=== PATIENT | male | born 2000 | race Caucasian/White ===

== ENCOUNTER 2024-06-05 07:57 | Emergency (ER) | payer OTHER, SELFPAY ==
--- NOTE | ~2024-06-05 | CT_ITS ---
EXAMINATION: CT ABDOMEN PELVIS WITH IV CONTRAST HISTORY: abd pain, concern for appy COMPARISON: There are no prior studies for comparison. TECHNIQUE: CT scan of the abdomen and pelvis was performed following administration of 85 mL Omnipaque 350 using standard departmental protocol. Coronal and sagittal reformatted images were generated and reviewed. Oral contrast material was not administered at the request of the referring physician. This CT exam was performed with one or more of the following dose reduction techniques: automated exposure control, adjustment of the mA and/or kV according to patient size, use of iterative reconstruction technique. DLP: 371 mGy-cm FINDINGS: LOWER CHEST: The visualized lung bases are clear. There is no pleural effusion. CARDIOVASCULATURE: The heart is normal in size. There is no pericardial effusion. LIVER: The liver is normal in size and contour. No liver mass is identified. The hepatic and portal veins are patent. GALLBLADDER / BILE DUCTS: The gallbladder is unremarkable. There is no intra or extrahepatic biliary ductal dilatation. SPLEEN: The spleen is normal in size. No focal splenic lesion is identified. PANCREAS: The pancreas is unremarkable in appearance. ADRENAL GLANDS: Within normal limits. KIDNEYS/RETROPERITONEUM: No renal calculi are identified. There is no hydronephrosis. No renal masses are identified. LYMPH NODES: No abdominal or pelvic lymphadenopathy. VASCULATURE: The abdominal aorta is normal in caliber. MESENTERY/PERITONEUM: No free fluid. No masses. There is no free intraperitoneal gas. STOMACH: The stomach is collapsed, limiting evaluation. SMALL BOWEL: The small bowel is normal in caliber. COLON: The colon is unremarkable. APPENDIX: Normal. URINARY BLADDER/PELVIC ORGANS: The urinary bladder is collapsed, limiting evaluation. The prostate is normal in size. BONES / SOFT TISSUES: No suspicious bony or soft tissue abnormalities. CT/CT abdomen pelvis w IV con IMPRESSION: Unremarkable contrast-enhanced CT of the abdomen and pelvis. Electronically signed by: Harley Garcia MD 06/05/2024 09:51 AM EDT
[2024-06-05 08:01] VITALS: BP 136/69; PULSE 91; RESP 22; TEMP 37.2; O2SAT 100; BMI 20.9
[2024-06-05 08:21] LABS: MANUAL DIFF FLAG NO
[2024-06-05 08:22] LABS: Basophils Percent Auto 0.2 % (0-2); Eosinophils Percent Auto 0.5 % (0-4); Hematocrit 46.2 % (42.0-52.0); Hemoglobin 16.4 g/dl (14.0-18.0); Imm Gran Abs Auto 0.05 X10*3/uL (0.00-0.03); Imm Gran Pct Auto 0.6 % (0.0-0.4); Lymphocytes Absolute Auto 2.3 X10*3/uL (1.2-4.9); Lymphocytes Percent Auto 27.3 % (20-40); Mean Corpuscular HGB Conc 35.5 g/dl (31.0-36.0); Mean Corpuscular Hemoglobin 30.2 pg (27.0-33.0); Mean Corpuscular Volume 85.1 fL (80.0-98.0); Mean Platelet Volume 7.9 fL (9.4-12.4); Monocytes Absolute Auto 0.5 X10*3/uL (0.1-1.2); Monocytes Percent Auto 6.1 % (2-11); Neutrophils Absolute Auto 5.6 x10*3/uL (2.0-8.3); Neutrophils Percent Auto 65.3 % (45-73); Platelet Count 374 X10*3/uL (160-400); Red Blood Count 5.43 X10*6/uL (4.60-5.80); White Blood Count 8.5 X10*3/uL (4.8-10.8)
[2024-06-05 08:37] LABS: Alanine Aminotransferase 17 U/L (0-40); Albumin Level 4.6 g/dL (3.5-5.0); Alkaline Phosphatase 67 U/L (39-117); Anion Gap 14 (12-20); Aspartate Amino Transferase 21 U/L (5-37); Bilirubin Direct 0.1 mg/dL (0.0-0.5); Bilirubin Total 0.4 mg/dL (0.0-1.0); Blood Urea Nitrogen 16 mg/dL (9-16); C Reactive Protein < 0.10 mg/dL (< or = 0.50); Calcium 9.7 mg/dL (8.4-10.2); Carbon Dioxide 23 mmol/L (22-29); Chloride 107 mmol/L (96-108); Creatinine Clr Calc Pharmacy 139.8; Estimated Glomerular Filt Rate > 60; Glucose Random 102 mg/dL (60-115); Lipase 24 U/L (8-78); Potassium 3.9 mmol/L (3.3-5.1); Sodium 140 mmol/L (135-145); Total Protein 7.4 g/dL (6.5-8.0)
--- NOTE | 2024-06-05 09:19 | ED_ITS ---
HPI - General Adult General Chief complaint: Abdominal Pain Stated complaint: abd pain Time Seen by Provider: 06/05/24 09:19 Source: patient Mode of arrival: ambulatory Limitations: no limitations History of Present Illness ED Provider: Ariane Smith PA-C HPI narrative: Patient is a 23 year old assigned male at with a history of Crohn's disease presenting to the emergency department today with abdominal pain and nausea. Patient states that he woke up this morning with abdominal pain and nausea which he was concerned is a Crohn's flare vs. appendicitis. Patient denies any dizziness, lightheadedness, vomiting, fever, chills, blurry vision, double vision, loss of vision, chest pain, difficulty breathing, shortness of breath, back pain, night sweats, pain with urination, increased urinary frequency, increased urinary urgency, blood in his urine or stool, syncope or a near syncopal episode, recent trauma or falls, bowel incontinence, bladder incontinence, or any other complaints at this time. Relieving factors: none Exacerbating factors: none Associated symptoms: nausea/vomiting Treatments prior to arrival: none Related Data Allergies Allergy/AdvReac Type Severity Reaction Status Date / Time cephalexin [From Keflex] Allergy Angioedema Verified 06/05/24 08:07 kiwi AdvReac Itching Verified 06/05/24 08:07 Review of Systems 2 Constitutional: Constitutional: Reports no additional constitutional complaints, Denies chills, Denies fever(s) and Denies night sweats Eyes: Eyes: Reports no additional eye complaints, Denies blurry vision, Denies change in vision, Denies diplopia, Denies eye discharge, Denies loss of vision and Denies eye pain ENT: Denies dizziness Cardiovascular: Cardiovascular: Reports no additional cardiovascular complaints, Denies chest pain, Denies lightheadedness, Denies Loss of Consciousness and Denies dyspnea Respiratory: Respiratory: Reports no additional respiratory complaints and Denies dyspnea Gastrointestinal: Gastrointestinal: Reports no additional gastrointestinal complaints, Reports abdominal pain, Denies melena, Denies hematochezia, Denies change in bowel habits, Denies change in stool character, Reports nausea and Denies vomiting Genitourinary: Genitourinary: Reports no additional male genitourinary complaints, Denies hematuria, Denies oliguria, Denies difficulty urinating, Denies dysuria, Denies urinary frequency, Denies urinary hesitancy, Denies urinary incontinence and Denies urinary urgency Musculoskeletal: Musculoskeletal: Reports no additional musculoskeletal complaints, Denies numbness and Denies tingling Neurologic: Denies dizziness, Denies loss of vision, Denies numbness and Denies tingling Psychiatric: Psychiatric: Reports no additional psychiatric complaints Endocrine: Endocrine: Reports no additional endocrine complaints Hematologic/Lymphatic: Hematologic/Lymphatic: Reports no additional hematologic/lymphatic complaints Allergic/Immunologic: Allergic/Immunologic: Reports no additional allergic/immunologic complaints PMFSH Past Medical History Attestation statement: The following information was validated with the patient. Source: old records reviewed and nursing notes reviewed Social History Social History Smoked in Last 30 Days: No Use of substances other than those prescribed or required for medical reasons: Yes Substance Use Type: Marijuana Advance Directives: No Advance Directives Information Provided: Yes Physical Exam ED Vital Signs: Vital Signs - 24 hr 06/05/24 08:01 06/05/24 09:47 06/05/24 10:39 Temperature 98.9 F 97.5 F 97.5 F Pulse Rate 91 78 78 Respiratory Rate 22 H 16 16 Blood Pressure 136/69 125/78 125/78 Pulse Oximetry 100 100 100 Oxygen Delivery Method Room Air Room Air Room Air BMI result Body Mass Index 20.9 Const General: cooperative, no acute distress, alert and awake Nutritional Appearance: well nourished Orientation/consciousness: patient oriented x3 Limitations: no limitations [facility] Head: Yes normal to inspection and Yes atraumatic Ears: hearing grossly normal bilaterally and external ears normal General nose exam: Normal external nose present, no nasal discharge noted and no epistaxis Face and sinus: Yes normal facial exam, No abrasion and No laceration Mouth: Normal oral and palatal mucosa present, no drooling and no muffled voice Eyes General: appearance normal, both eyes and all related structures Periorbital: periorbital findings normal Eyelids: Yes eyelids normal Conjunctivae: conjunctivae normal Pupils: Equal, round and reactive pupils present EOM: EOMs intact bilaterally Neck Neck: Yes normal visual inspection, Yes full ROM and Yes no lymphadenopathy Chest Chest palpation & inspection: normal inspection of the chest Resp Effort & Inspection: normal respiratory effort and able to speak in complete sentences GI Inspection: Yes normal to inspection Palpation (GI): Soft to palpation, not firm, Tenderness to palpation present (GI), no guarding and not rigid Neuro General: patient oriented x3, moves all extremities and CN's II-XI intact bilaterally Cranial nerves: Yes Equal, round and reactive pupils present Cognition (Neuro): normal cognition Extrem General: Yes normal to inspection, Yes full ROM and Yes capillary refill normal Psych Appearance: grossly normal Mental Status: mental status grossly normal Affect: normal affect Attitude: cooperative Thought process: Normal thought process present Thought content: Normal thought content present Insight: Good insight present (Psych) Medications Administered Discontinued Medications Generic Name Dose Route Start Last Admin Trade Name Billy PRN Reason Stop Dose Admin Iohexol 100 ml 06/05/24 09:24 06/05/24 09:25 Iohexol 350 Mg/Ml 100 Ml Infus..Btl IV 06/05/24 09:25 85 ml ONCE ONE Administration Morphine Sulfate 4 mg 06/05/24 09:19 06/05/24 09:46 Morphine Sulfate 4 Mg/Ml Cartridge IVPUSH 06/05/24 09:20 4 mg ONCE ONE Administration Protocol Ondansetron HCl 4 mg 06/05/24 09:19 06/05/24 09:46 Ondansetron Hcl 4 Mg/2 Ml Vial IVPUSH 06/05/24 09:20 4 mg ONCE ONE Administration Medical Decision Making Medical Decision Making [facility] Narrative: Patient is a 23 year old assigned male at with a history of Crohn's disease presenting to the emergency department today with abdominal pain and nausea. Patient's physical exam was as noted in the physical exam portion of this note. Patient's blood work was unremarkable. Patient's CT abd/pelvis showed no acute process. I explained my physical exam findings as well as all test results to the patient. I answered all questions asked by the patient. Patient received IV Morphine which, upon re-evaluation, he stated it helped his symptoms significantly. I stressed the importance of the patient taking his medication as directed (either prescribed or as the over the counter packaging recommends). I stressed the importance of the patient following up with his primary care provider. I stressed the importance of the patient returning to the emergency department immediately if his symptoms were to worsen or if he were to develop any dizziness, shortness of breath, difficulty breathing, chest pain, blurry vision, loss of vision, nausea, vomiting, abdominal pain, fever, chills, back pain, or any other complaints. Patient verbalized agreement and understanding with this treatment plan and discharge. Differential Diagnosis Differential Diagnoses: The differential diagnosis associated with the presentation includes Abdominal pain Appendicitis Crohn's flare Admission/Observation Consideration of admission/observation: Escalation of care including admission/observation considered Patient would have been admitted to the hospital had his work up had any findings where hospital admission was appropriate and his clinical presentation warranted hospital admission. Lab Data [facility] Lab Attestation statement: I reviewed the patient's lab results. My interpretation of these results are in the [facility] Rationale portion of this note. 06/05/24 08:16 06/05/24 08:16 Labs: Lab Results 06/05/24 Range/Units 08:16 WBC 8.5 (4.8-10.8) X10*3/uL RBC 5.43 (4.60-5.80) X10*6/uL Hgb 16.4 (14.0-18.0) g/dl Hct 46.2 (42.0-52.0) % MCV 85.1 (80.0-98.0) fL MCH 30.2 (27.0-33.0) pg MCHC 35.5 (31.0-36.0) g/dl RDW 13.0 (11.0-16.0) % Plt Count 374 (160-400) X10*3/uL MPV 7.9 L (9.4-12.4) fL Immature Gran % (Auto) 0.6 H (0.0-0.4) % Neut % (Auto) 65.3 (45-73) % Lymph % (Auto) 27.3 (20-40) % Benton % (Auto) 6.1 (2-11) % Eos % (Auto) 0.5 (0-4) % Baso % (Auto) 0.2 (0-2) % Lymph # (Auto) 2.3 (1.2-4.9) X10*3/uL Benton # (Auto) 0.5 (0.1-1.2) X10*3/uL Eos # (Auto) 0.0 (0.0-0.4) X10*3/uL Baso # (Auto) 0.0 (0.0-0.2) X10*3/uL Abs Immat Gran (auto) 0.05 H (0.00-0.03) X10*3/uL Absolute Neuts (auto) 5.6 (2.0-8.3) x10*3/uL Absolute Nucleated RBC 0.000 (0.0-0.012) X10*3/uL Nucleated RBC % (auto) 0.0 (0.0-0.2) /100WBC Sodium 140 (135-145) mmol/L Potassium 3.9 (3.3-5.1) mmol/L Chloride 107 (96-108) mmol/L Carbon Dioxide 23 (22-29) mmol/L Anion Gap 14 (12-20) BUN 16 (9-16) mg/dL Creatinine 0.76 (0.5-1.4) mg/dL Estim Creat Clear Calc 139.8 Estimated GFR > 60 Random Glucose 102 (60-115) mg/dL Calcium 9.7 (8.4-10.2) mg/dL Magnesium 2.0 (1.6-2.6) mg/dL Total Bilirubin 0.4 (0.0-1.0) mg/dL Direct Bilirubin 0.1 (0.0-0.5) mg/dL AST 21 (5-37) U/L ALT 17 (0-40) U/L Alkaline Phosphatase 67 (39-117) U/L C-Reactive Protein < 0.10 (< or = 0.50) mg/dL Total Protein 7.4 (6.5-8.0) g/dL Albumin 4.6 (3.5-5.0) g/dL Lipase 24 (8-78) U/L Independent Interpretation I performed an independent interpretation of an: CT Scan Interpretation: My interpretation is in agreement with the radiologist's impression of this imaging study. L Report Number: [id number]: Total DLP = 371.00 mGy-cm EXAMINATION: CT ABDOMEN PELVIS WITH IV CONTRAST HISTORY: abd pain, concern for appy COMPARISON: There are no prior studies for comparison. TECHNIQUE: CT scan of the abdomen and pelvis was performed following administration of 85 mL Omnipaque 350 using standard departmental protocol. Coronal and sagittal reformatted images were generated and reviewed. Oral contrast material was not administered at the request of the referring physician. This CT exam was performed with one or more of the following dose reduction techniques: automated exposure control, adjustment of the mA and/or kV according to patient size, use of iterative reconstruction technique. DLP: 371 mGy-cm FINDINGS: LOWER CHEST: The visualized lung bases are clear. There is no pleural effusion. CARDIOVASCULATURE: The heart is normal in size. There is no pericardial effusion. LIVER: The liver is normal in size and contour. No liver mass is identified. The hepatic and portal veins are patent. GALLBLADDER / BILE DUCTS: The gallbladder is unremarkable. There is no intra or extrahepatic biliary ductal dilatation. SPLEEN: The spleen is normal in size. No focal splenic lesion is identified. PANCREAS: The pancreas is unremarkable in appearance. ADRENAL GLANDS: Within normal limits. KIDNEYS/RETROPERITONEUM: No renal calculi are identified. There is no hydronephrosis. No renal masses are identified. LYMPH NODES: No abdominal or pelvic lymphadenopathy. VASCULATURE: The abdominal aorta is normal in caliber. MESENTERY/PERITONEUM: No free fluid. No masses. There is no free intraperitoneal gas. STOMACH: The stomach is collapsed, limiting evaluation. SMALL BOWEL: The small bowel is normal in caliber. COLON: The colon is unremarkable. APPENDIX: Normal. URINARY BLADDER/PELVIC ORGANS: The urinary bladder is collapsed, limiting evaluation. The prostate is normal in size. BONES / SOFT TISSUES: No suspicious bony or soft tissue abnormalities. CT/CT abdomen pelvis w IV con IMPRESSION: Unremarkable contrast-enhanced CT of the abdomen and pelvis. Electronically signed by: Harley Garcia MD 06/05/2024 09:51 AM EDT Dictated By: Harley Garcia MD Signed By: Electronically signed by Harley Garcia MD 06/05/24 0951 Radiology Impression Discussion of test interpretation with radiology: I have reviewed the radiologist's reading. Critical Care Time Critical Care Time Critical Care Time: Yes Total Critical Care Time: 36 Attestation: I spent 36 minutes of Critical Care Time with this patient. This does not include time spent on separately reported billable procedures. Discharge Plan Discharge Clinical Impression: Abdominal pain Patient Disposition: Home, Self-Care Instructions: Abdominal Pain (ED) Additional Instructions: Follow up with your primary care provider and GI specialist. Return to the emergency department immediately if your symptoms worsen or if you develop any numbness, tingling, dizziness, shortness of breath, difficulty breathing, chest pain, blurry vision, loss of vision, nausea, vomiting, abdominal pain, fever, chills, back pain, or any other complaints. Please see the information below about our Patient Portal. If you are not yet enrolled in the [facility] Patient Portal, you will receive an enrollment email invitation following your visit to any [facility] setting. You may also self-enroll in the Patient Portal by visiting our website: [email or web address] The following information is required to access the Patient Portal: - Your [facility] Medical Record Number - Your personal home email address (must match what is in your electronic medical record, Registration staff can assist with this) - Name - Date of Capabilities of the Patient Portal: - Message some providers - View upcoming appointments - Access your health summary, medical history, and visit history - View current conditions and allergies - View procedure and lab results - View your medications, including guidelines, side effects, and precautions - Complete pre-appointment questionnaires requested by your provider - Ready summary reports of your office visits and procedures To access the Patient Portal Mobile [employer], follow these directions: - Search [employer] in the [employer] Store or [employer] Store - Download the Elma - Search for [facility] - Enter your login/password Referrals: [facility] Family Medicine [Provider Group] (Call to establish and follow up with a primary care provider. If you already have a primary care provider, please follow up with them.) [facility] Primary Care, [place] [Provider Group] (Call to establish and follow up with a primary care provider. If you already have a primary care provider, please follow up with them.) [facility], [place] [Provider Group] (Call to establish and follow up with a primary care provider. If you already have a primary care provider, please follow up with them.) [facility] Primary Care, [facility] [Provider Group] (Call to establish and follow up with a primary care provider. If you already have a primary care provider, please follow up with them.) [facility] [Provider Group] (Call to establish and follow up with a primary care provider. If you already have a primary care provider, please follow up with them.) Stand Alone Forms: Work/School Release Interventions: ED Discharge Assessment Last Done: 06/05/24 10:39 Discharge Date/Time: 06/05/24 10:41 Print Language: Swiss
[2024-06-05] MEDS: iohexoL 350 MG/ML 100 ML INFUS..BTL IV (09:25)
[2024-06-05] MEDS: Morphine Sulfate 4 MG/ML CARTRIDGE IVPUSH (09:46)
[2024-06-05] MEDS: ondansetron HCL 4 MG/2 ML VIAL IVPUSH (09:46)
[2024-06-05 09:47] VITALS: BP 125/78; PULSE 78; RESP 16; TEMP 36.4; O2SAT 100
--- NOTE | 2024-06-05 09:52 | PC.NURSE ---
abd soft and slightly tender. has hgad a BM in Ed w/o blood. no distention. s tates pain has begun to improve w/o meds.
--- OUTSIDE RECORDS SUMMARY | 2024-06-05 10:27 | XMS_ITS | Referral Summary ---
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 Kiwi Itching 07/27/2022 Itchy back of throat Medications Ventolin HFA 90 mcg/actuation inhaler Currently using 2 puffs twice daily 3 Active cromolyn (NASALCHROM) 5.2 mg/spray (4 %) nasal spray 3 Active Loratadine-D 10-240 mg per 24 hr tablet 3 Active montelukast (SINGULAIR) 10 mg tablet 3 Active predniSONE (DELTASONE) 50 mg tablet 50 mg daily. X 7 days 3 Active Social History Tobacco Use Types Packs/Day Years Used Date Smoking Tobacco: Former Cigarettes Smokeless Tobacco: Never Tobacco Cessation:Counseling Given: Not Answered Comments:Smoked from 5th grad through high school Alcohol Use Standard Drinks/Week Comments Yes 0 (1 standard drink = 0.6 oz pur e alcohol) 1-2 every few weeks Sex and Gender Information Value Date Recorded Sex Assigned at Male 10/31/2023 12:44 PM EDT Legal Sex Male 10:32 AM EDT Gender Identity Not on file Sexual Orientation Not on file Last Filed Vital Signs Vital Sign Reading Time Taken Comments Blood Pressure 131/72 10/31/2023 12:08 PM EDT Pulse 84 10/31/2023 12:08 PM EDT Temperature 36.3 ??C (97.3 ??F) 10/31/2023 12:08 PM E DT Respiratory Rate 22 10/31/2023 12:08 PM EDT Oxygen Saturation 98% 10/31/2023 12:08 PM EDT Inhaled Oxygen Concentration - - Weight 62.6 kg (138 lb) 08/07/2022 1:00 PM EDT Height 180.3 cm (5' 11 ) 08/07/2022 1:00 PM EDT Body Mass Index 19.25 08/07/2022 1:00 PM EDT Plan of Treatment Not on file Insurance [facility] MEDICAID HSNO/FREE CARE Advance Directives * Full Code (Latest Code Status on File) Date Activated Date Inactivated Comments 08/02/2022 10:54 AM 08/02/2022 8:29 PM Care 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
--- OUTSIDE RECORDS SUMMARY | 2024-06-05 10:27 | XMS_ITS | Data Portability ---
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 Plan of Treatment Reminders Order Date Submit Date Provider Last Modified By Organization Details Last Modified Time Details Appointments None recorded. Lab rapid SARS CoV 2 Ag, QL IA, respirator y specimen 2022 023 ATLANTIC In-Office Order, Internal Use Only DO Not Attach Compendium DO Not Attach Compendium, Do Not Delete/merge, [id number] 3 11:01:37 SARS CoV 2 RNA (COVID-19) , QL, dress marker-PCR, respirator y specimen 2022 023 [facility] Patient Reg, [address] [facility], [address], 3 09:02:19 rapid strep group A, throat 2022 023 [facility], [address] [place], [address], 3 11:02:16 CBC w/ auto diff 2021 022 [facility] Patient Reg, [address] [facility] [place], [address], 2 15:52:44 CMP, serum or plasma 2021 022 [facility] Patient Reg, [address] [place], [address], 2 16:21:59 TSH, serum, reflex free T4 2021 022 [facility] Patient Reg, [address] [place], [address], 2 16:22:01 lyme disease igg+igm, serum, reflex western blot 2021 022 [facility] Patient Reg, [address] [place], [address], 2 10:45:55 rapid SARS CoV 2 Ag, QL IA, respirator y specimen 2021 [email or web address] In-Office Order, Internal Use Only DO Not Attach Compendium DO Not Attach Compendium, Do Not Delete/merge, [id number] 16:16:38 unlisted lab - hepatitis C antibody 2021 022 [facility], [address] [place], [address] 14:47:40 unlisted lab - sars-cov-2 (naat) 2020 021 [facility] Patient Reg, [address] [place], [address], 1 11:13:44 Referral otolaryngo logist referral - 21 yo M w/ chronic rhinitis suspecting that he has a septal deviation due to difficulty breathing from the R nostril. Please evaluate and treat. Thank you. 2022 023 [email or web address] Malaika Gomez MD, [address] [facility] [address], [address], [place], [address], 3 13:37:08 Procedures None recorded. Surgeries None recorded. Imaging XR, chest, 2 view 2022 023 [email or web address] 2 [facility] (Central Scheduling), [address] [place], [address], 3 11:53:01 unlisted imaging order - PFT with bronchodil ator 2022 023 [facility] (Central Scheduling), [address] [place], [address], 3 11:49:29 electrocar diogram 2021 022 [email or web address] 2 [facility], [address] [place] [address] Dr, [place], [address], 2 10:31:48 holter monitor - Lightheade dness 2021 022 [facility] (Central Scheduling), [address] [place], [address], 2 08:51:04 Medication Orders prednisone 20 mg tablet 2022 023 [facility] [address] [place], [address], 3 10:26:43 cromolyn 5.2 mg/spray (4 %) nasal spray 2022 023 [facility] [address], [address] [place], [address], 3 10:15:09 montelukas t 10 mg tablet 2022 023 [facility] [address], [address] [place], [address], 3 10:15:11 Patient TargetsNo targets recorded. 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 Please evaluate and treat. Thank you. Referring Physician: Mariela Andrews, Family Medicine, Encounter Date: 06/04/2022 Results Created Date Observation Date Name Description Value Unit Range Abnormal Flag Note LastModifiedBy Organization Detail LastModifiedTime 12/28/19 21 12/27/2020 rapid strep group A, throa t Result negati ve Not Available Ida Betsy [facility] [address] [place], [address], 12/27/2020 12:15:53 01/14/20 21 01/14/2021 SARS- COV-2 (NAAT ) sars-cov-2 NOT DETECT ED not detect . The Aptim a SARS- CoV-2 assay is a nucle ic acid ampli ficat ion in vitro diagn ostic test inten ded for the quali tativ e detec tion of RNA from SARS- CoV-2 using Trans cript ion Media sin Ampli ficat ion (TMA) isola sin and purif ied from nasop haryn geal (ANALYTICAL DATA MINER), nasal , mid-t urbin ate, and oroph aryng eal (OP) swab speci mens obtai baylee from indiv idual s meeti ng COVID -19 clini se and/o r epide miolo gical crite danyel. The Aptim a TMA metho d is equiv alent in sensi tivit y and speci ficit y to metho ds utili zing PCR and RT-PC R. Resul ts are for the ident ifica tion of SARS- CoV-2 RNA which is gener ally detec table in upper respi rator y sampl es durin g the acute phase of infec tion. Posit kenny resul ts are indic ative of the prese nce of SARS- CoV-2 RNA; clini se corre latio n with patie nt histo ry and other diagn ostic infor matio n is neces arabella to deter mine patie nt infec tion statu s. Posit kenny resul ts do not rule out bacte rial infec tion or co-in fecti on with other virus es. Negat kenny resul ts do not precl ude SARS- CoV-2 infec tion and shoul d not be used as the sole basis for patie nt manag ement decis ions. Negat kenny resul ts must be combi baylee with clini se obser vatio ns, patie nt histo ry, and epide dez gise infor jimena n. The Aptim a SARS- CoV-2 assay is only for use under the Food and Drug Admin istra tion' s Emerg ency Use Autho rizat ion (EUA) . Not Available [facility] [address] [place] [address], [address] 01/14/2021 11:13:44 04/30/19 22 04/29/2021 COMPL ETE BLOOD COUNT AUTO DIFF white blood count 4.57 K/uL 3.5-11 .0 normal Not Available [facility] [address] [place] [address], [address] 04/29/2021 11:29:18 04/30/19 22 04/29/2021 COMPL ETE BLOOD COUNT AUTO DIFF red blood count 5.27 M/uL 3.90-5 .50 normal Not Available [facility] [address] [place] [address], [address] 04/29/2021 11:29:18 04/30/19 22 04/29/2021 COMPL ETE BLOOD COUNT AUTO DIFF hemoglobin 15.5 g/dL 14.0-1 8.0 normal Not Available [facility] [address] [place] [address], [address] 04/29/2021 11:29:18 04/30/19 22 04/29/2021 COMPL ETE BLOOD COUNT AUTO DIFF hematocrit 45.0 % 42.0-5 4.0 normal Not Available [facility] [address] [place] [address], [address] 04/29/2021 11:29:18 04/30/19 22 04/29/2021 COMPL ETE BLOOD COUNT AUTO DIFF mean corpuscular volume 85.4 fL 80.0-1 00.0 normal Not Available [facility] [address] [place] [address], [address] 04/29/2021 11:29:18 04/30/19 22 04/29/2021 COMPL ETE BLOOD COUNT AUTO DIFF mean corpuscular hemoglobin 29.4 pg 25.4-3 4.6 normal Not Available [facility] [address] [place] [address], 784[address] 04/29/2021 11:29:18 04/30/19 22 04/29/2021 COMPL ETE BLOOD COUNT AUTO DIFF mean corpuscular HGB conc 34.4 g/dL 31.0-3 7.0 normal Not Available [facility] [address] [place] [address], 87[address] 04/29/2021 11:29:18 04/30/19 22 04/29/2021 COMPL ETE BLOOD COUNT AUTO DIFF red cell distribution width 12.9 % 11.5-1 4.5 normal Not Available [facility] [address] [place] [address], [address] 04/29/2021 11:29:18 04/30/19 22 04/29/2021 COMPL ETE BLOOD COUNT AUTO DIFF platelet count 331 K/uL 150-40 0 normal Not Available [facility] [address] [place] [address], 29[address] 04/29/2021 11:29:18 04/30/19 22 04/29/2021 COMPL ETE BLOOD COUNT AUTO DIFF neutrophils percent auto 43.2 % 35.0-6 6.0 normal Not Available [facility] [address] [place] [address], [address] 04/29/2021 11:29:18 04/30/19 22 04/29/2021 COMPL ETE BLOOD COUNT AUTO DIFF lymphocytes percent auto 46.2 % 25.0-4 5.0 high Not Available [facility] [address] [place] [address], 569[address] 04/29/2021 11:29:18 04/30/19 22 04/29/2021 COMPL ETE BLOOD COUNT AUTO DIFF monocytes percent auto 7.7 % 0.0-13 .0 normal Not Available [facility] [address] [place] [address], 844[address] 04/29/2021 11:29:18 04/30/19 22 04/29/2021 COMPL ETE BLOOD COUNT AUTO DIFF eosinophils percent auto 2.2 % 0.0-8. 0 normal Not Available [facility] [address] [place] [address], [address] 04/29/2021 11:29:18 04/30/19 22 04/29/2021 COMPL ETE BLOOD COUNT AUTO DIFF basophils percent auto 0.7 % 0.0-1. 0 normal Not Available [facility] [address] [place] [address], 28[address] 04/29/2021 11:29:18 04/30/19 22 04/29/2021 COMPL ETE BLOOD COUNT AUTO DIFF neutrophils absolute auto 1.98 K/uL 1.5-7. 5 normal Cauti on: Inter preta tion of ANC resul ts witho ut inclu danny of the WBC diffe renti al resul ts may lead to maranda eous diagn osis; for examp le, mario alberto ng myelo proli ferat kenny or lymph oprol ifera tive disor ders. Not Available [facility] [address] [place] [address], [address] 04/29/2021 11:29:18 04/30/19 22 04/29/2021 COMPL ETE BLOOD COUNT AUTO DIFF lymphocytes absolute auto 2.11 K/uL 0.8-4. 8 normal Not Available [facility] [address] [place] [address], [id number] 04/29/2021 11:29:18 04/30/19 22 04/29/2021 COMPL ETE BLOOD COUNT AUTO DIFF monocytes absolute auto 0.35 K/uL 0.4-1. 3 low Not Available [facility] [address] [place] [address], [id number] 04/29/2021 11:29:18 04/30/19 22 04/29/2021 COMPL ETE BLOOD COUNT AUTO DIFF eosinophils absolute auto 0.10 K/uL 0.0-0. 8 normal Not Available [facility] [address] [place] [address], 8[address] 04/29/2021 11:29:18 04/30/19 22 04/29/2021 COMPL ETE BLOOD COUNT AUTO DIFF basophils absolute auto 0.03 K/uL 0.0-0. 6 normal Not Available [facility] [address] [place] [address], 733[address] 04/29/2021 11:29:18 04/30/19 22 04/29/2021 COMPR EHENS KENNY MET. PANEL sodium 140 mmol/ L 136-14 5 normal Not Available [facility] [address] [place] [address], 0[address] 04/29/2021 11:39:27 04/30/19 22 04/29/2021 COMPR EHENS KENNY MET. PANEL potassium 3.8 mmol/ L 3.5-5. 1 normal Not Available [facility] [address] [place], [address] 04/29/2021 11:39:27 04/30/19 22 04/29/2021 COMPR EHENS KENNY MET. PANEL chloride 103 mmol/ L 98-107 normal Not Available [facility] [address] [place], [address] 04/29/2021 11:39:27 04/30/19 22 04/29/2021 COMPR EHENS KENNY MET. PANEL carbon dioxide 20.4 mmol/ L 22-29 low Not Available [facility] [address] [place] [address], 787[address] 04/29/2021 11:39:27 04/30/19 22 04/29/2021 COMPR EHENS KENNY MET. PANEL anion gap 21 mmol/ L 10-20 high Not Available [facility] [address] [place] [address], 164[address] 04/29/2021 11:39:27 04/30/19 22 04/29/2021 COMPR EHENS KENNY MET. PANEL blood urea nitrogen 9 mg/dL 6-20 normal Not Available [facility] [address] [place], [address] 04/29/2021 11:39:27 04/30/19 22 04/29/2021 COMPR EHENS KENNY MET. PANEL creatinine 0.90 mg/dL 0.70-1 .2 normal Not Available [facility] [address] [place] [address], 849[address] 04/29/2021 11:39:27 04/30/19 22 04/29/2021 COMPR EHENS KENNY MET. PANEL glomerular filtration rate > 90 GFR Value : ml/mi n/1.7 3 squar e meter s * If patie nt is Afric an-[place] fl[place] n, multi ply resul t by 1.159 Chron ic Kidne y Disea se is defin ed as less than 60 ml/mi n/1.7 3 squar e meter s. Kidne y failu re is less than 15 ml/mi n/1.7 3 squar e meter s Test is not perfo rmed on patie nts under the age of 18 Not Available [facility] [address] [place], [address] 04/29/2021 11:39:27 04/30/19 22 04/29/2021 COMPR EHENS KENNY MET. PANEL glucose 123 mg/dL 70-106 high Not Available [facility] [address] [place], [address] 04/29/2021 11:39:27 04/30/19 22 04/29/2021 COMPR EHENS KENNY MET. PANEL calcium 10.7 mg/dL 8.4-10 .3 high Not Available [facility] [address] [place] [address], 88895 04/29/2021 11:39:27 04/30/19 22 04/29/2021 COMPR EHENS KENNY MET. PANEL bilirubin total 0.6 mg/dL 0.2-1. 2 normal Not Available [facility] [address] [place] [address], 05474 04/29/2021 11:39:27 04/30/19 22 04/29/2021 COMPR EHENS KENNY MET. PANEL aspartate amino transferase 12 U/L 5-40 normal Not Available [facility] Department [address] [place], [address] 04/29/2021 11:39:27 04/30/19 22 04/29/2021 COMPR EHENS KENNY MET. PANEL alanine aminotransfe rase 6 U/L 5-41 normal Not Available [facility] [address] [place], [address] 04/29/2021 11:39:27 04/30/19 22 04/29/2021 COMPR EHENS KENNY MET. PANEL total protein 8.1 g/dL 6.4-8. 3 normal Not Available [facility] [address] [place] [address], 907[address] 04/29/2021 11:39:27 04/30/19 22 04/29/2021 COMPR EHENS KENNY MET. PANEL albumin level 5.0 g/dL 3.5-5. 2 normal Not Available [facility] [address] [place] [address], 809[address] 04/29/2021 11:39:27 04/30/19 22 04/29/2021 COMPR EHENS KENNY MET. PANEL globulin 3.1 gm/dL 2.0-3. 5 normal Not Available [facility] [address] [place], [address] 04/29/2021 11:39:27 04/30/19 22 04/29/2021 COMPR EHENS KENNY MET. PANEL albumin globulin ratio 1.6 % 1.1-2. 5 normal Not Available [facility] [address] [place], [address] 04/29/2021 11:39:27 04/30/19 22 04/29/2021 COMPR EHENS KENNY MET. PANEL alkaline phosphatase 84 U/L 40-129 normal Not Available [facility] Department [address] [place], [address] 04/29/2021 11:39:27 08/18/19 22 08/18/2021 HEPAT ITIS C ANTIB DAYA hepatitis C virus antibody NONREA CTIVE nonrea ctive Non React kenny Antib odies to Hepat itis C virus not detec sin: does not exclu de early acute infec tion. Not Available [facility] [address] [place] [address], 77[address] 08/18/2021 14:47:40 10/18/19 22 10/17/2021 UA AND RFLX MICRO SCOPI C color urine Yellow yellow Not Available [facility] [address] [place], [address] 10/17/2021 22:33:32 10/18/19 22 10/17/2021 UA AND RFLX MICRO SCOPI C appearance urine Clear clear Not Available [facility] [address] [place], [address] 10/17/2021 22:33:32 10/18/19 22 10/17/2021 UA AND RFLX MICRO SCOPI C specific gravity urine 1.020 1.001- 1.035 Not Available [facility] [address] [place] [address], 297[address] 10/17/2021 22:33:32 10/18/19 22 10/17/2021 UA AND RFLX MICRO SCOPI C glucose urine UA Negati ve negati ve Not Available [facility] [address] [place], [address] 10/17/2021 22:33:32 10/18/19 22 10/17/2021 UA AND RFLX MICRO SCOPI C bilirubin urine Negati ve negati ve Not Available [facility] [address] [place], [address] 10/17/2021 22:33:32 10/18/19 22 10/17/2021 UA AND RFLX MICRO SCOPI C ketones urine Negati ve negati ve Not Available [facility] [address] [place], [address] 10/17/2021 22:33:32 10/18/19 22 10/17/2021 UA AND RFLX MICRO SCOPI C urine hemoglobin Negati ve negati ve Not Available [facility] [address] [place], [address] 10/17/2021 22:33:32 10/18/19 22 10/17/2021 UA AND RFLX MICRO SCOPI C pH urine 7.0 5.0-8. 0 Not Available [facility] [address] [place] [address], 13[address] 10/17/2021 22:33:32 10/18/19 22 10/17/2021 UA AND RFLX MICRO SCOPI C protein urine Negati ve mg/dL negati ve Not Available [facility] [address] [place], [address] 10/17/2021 22:33:32 10/18/19 22 10/17/2021 UA AND RFLX MICRO SCOPI C urobilinogen urine 0.2 mg/dL 0.2-1. 0 Not Available [facility] [address] [place] [address], 27384 10/17/2021 22:33:32 10/18/19 22 10/17/2021 UA AND RFLX MICRO SCOPI C nitrite urine Negati ve negati ve Not Available [facility] [address] [place], [address] 10/17/2021 22:33:32 10/18/19 22 10/17/2021 UA AND RFLX MICRO SCOPI C leukocyte esterase urine Negati ve negati ve Not Available [facility] [address] [place] [address], 876[address] 10/17/2021 22:33:32 10/18/19 22 10/17/2021 COMPL ETE BLOOD COUNT AUTO DIFF white blood count 11.01 K/uL 3.5-11 .0 high Not Available [facility] [address] [place] [address], 95039 10/17/2021 22:33:35 10/18/19 22 10/17/2021 COMPL ETE BLOOD COUNT AUTO DIFF red blood count 5.21 M/uL 3.90-5 .50 normal Not Available [facility] [address] [place] [address], 06789 10/17/2021 22:33:35 10/18/19 22 10/17/2021 COMPL ETE BLOOD COUNT AUTO DIFF hemoglobin 15.4 g/dL 14.0-1 8.0 normal Not Available [facility] [address] [place] [address], 06021 10/17/2021 22:33:35 10/18/19 22 10/17/2021 COMPL ETE BLOOD COUNT AUTO DIFF hematocrit 44.7 % 42.0-5 4.0 normal Not Available [facility] [address] [place] [address], 73384 10/17/2021 22:33:35 10/18/19 22 10/17/2021 COMPL ETE BLOOD COUNT AUTO DIFF mean corpuscular volume 85.8 fL 80.0-1 00.0 normal Not Available [facility] [address] [place] [address], 09783 10/17/2021 22:33:35 10/18/19 22 10/17/2021 COMPL ETE BLOOD COUNT AUTO DIFF mean corpuscular hemoglobin 29.6 pg 25.4-3 4.6 normal Not Available [facility] [address] [place] [address], 80278 10/17/2021 22:33:35 10/18/19 22 10/17/2021 COMPL ETE BLOOD COUNT AUTO DIFF mean corpuscular HGB conc 34.5 g/dL 31.0-3 7.0 normal Not Available [facility] [address] [place] [address], 00322 10/17/2021 22:33:35 10/18/19 22 10/17/2021 COMPL ETE BLOOD COUNT AUTO DIFF red cell distribution width 12.9 % 11.5-1 4.5 normal Not Available [facility] [address] [place], [address] 10/17/2021 22:33:35 10/18/19 22 10/17/2021 COMPL ETE BLOOD COUNT AUTO DIFF platelet count 294 K/uL 150-40 0 normal Not Available [facility] [address] [place], [address] 10/17/2021 22:33:35 10/18/19 22 10/17/2021 COMPL ETE BLOOD COUNT AUTO DIFF neutrophils percent auto 85.2 % 35.0-6 6.0 high Not Available [facility] [address] [place] [address], 46988 10/17/2021 22:33:35 10/18/19 22 10/17/2021 COMPL ETE BLOOD COUNT AUTO DIFF lymphocytes percent auto 9.4 % 25.0-4 5.0 low Not Available [facility] [address] [place] [address], 09122 10/17/2021 22:33:35 10/18/19 22 10/17/2021 COMPL ETE BLOOD COUNT AUTO DIFF monocytes percent auto 4.9 % 0.0-13 .0 normal Not Available [facility] [address] [place] [address], 97677 10/17/2021 22:33:35 10/18/19 22 10/17/2021 COMPL ETE BLOOD COUNT AUTO DIFF eosinophils percent auto 0.4 % 0.0-8. 0 normal Not Available [facility] [address] [place] [address], 95441 10/17/2021 22:33:35 10/18/19 22 10/17/2021 COMPL ETE BLOOD COUNT AUTO DIFF basophils percent auto 0.1 % 0.0-1. 0 normal Not Available [facility] [address] [place] [address], 46722 10/17/2021 22:33:35 10/18/19 22 10/17/2021 COMPL ETE BLOOD COUNT AUTO DIFF neutrophils absolute auto 9.39 K/uL 1.5-7. 5 high Cauti on: Inter preta tion of ANC resul ts witho ut inclu danny of the WBC diffe renti al resul ts may lead to maranda eous diagn osis; for examp le, mario alberto ng myelo proli ferat kenny or lymph oprol ifera tive disor ders. Not Available [facility] [address] [place], [address] 10/17/2021 22:33:35 10/18/19 22 10/17/2021 COMPL ETE BLOOD COUNT AUTO DIFF lymphocytes absolute auto 1.03 K/uL 0.8-4. 8 normal Not Available [facility] [address] [place], [address] 10/17/2021 22:33:35 10/18/19 22 10/17/2021 COMPL ETE BLOOD COUNT AUTO DIFF monocytes absolute auto 0.54 K/uL 0.4-1. 3 normal Not Available [facility] [address] [place] [address], 13343 10/17/2021 22:33:35 10/18/19 22 10/17/2021 COMPL ETE BLOOD COUNT AUTO DIFF eosinophils absolute auto 0.04 K/uL 0.0-0. 8 normal Not Available [facility] [address] [place] [address], 69556 10/17/2021 22:33:35 10/18/19 22 10/17/2021 COMPL ETE BLOOD COUNT AUTO DIFF basophils absolute auto 0.01 K/uL 0.0-0. 6 normal Not Available [facility] [address] [place], [address] 10/17/2021 22:33:35 10/18/19 22 10/17/2021 COMPR EHENS KENNY MET. PANEL sodium 141 mmol/ L 136-14 5 normal Not Available [facility] [address] [place], [address] 10/17/2021 22:47:46 10/18/19 22 10/17/2021 COMPR EHENS KENNY MET. PANEL potassium 3.9 mmol/ L 3.5-5. 1 normal Not Available [facility] [address] [place] [address], 29964 10/17/2021 22:47:46 10/18/19 22 10/17/2021 COMPR EHENS KENNY MET. PANEL chloride 105 mmol/ L 98-107 normal Not Available [facility] [address] [place] [address], 14206 10/17/2021 22:47:46 10/18/19 22 10/17/2021 COMPR EHENS KENNY MET. PANEL carbon dioxide 25.2 mmol/ L 22-29 normal Not Available [facility] [address] [place], [address] 10/17/2021 22:47:46 10/18/19 22 10/17/2021 COMPR EHENS KENNY MET. PANEL anion gap 15 mmol/ L 10-20 normal Not Available [facility] [address] [place], [address] 10/17/2021 22:47:46 10/18/19 22 10/17/2021 COMPR EHENS KENNY MET. PANEL blood urea nitrogen 13 mg/dL 6-20 normal Not Available [facility] Department [address] [place], [address] 10/17/2021 22:47:46 10/18/19 22 10/17/2021 COMPR EHENS KENNY MET. PANEL creatinine 0.85 mg/dL 0.70-1 .2 normal Not Available [facility] [address] [place], [address] 10/17/2021 22:47:46 10/18/19 22 10/17/2021 COMPR EHENS KENNY MET. PANEL glomerular filtration rate > 90 GFR Value : ml/mi n/1.7 3 squar e meter s * If patie nt is Afric an-Am fl[place] n, multi ply resul t by 1.159 Chron ic Kidne y Disea se is defin ed as less than 60 ml/mi n/1.7 3 squar e meter s. Kidne y failu re is less than 15 ml/mi n/1.7 3 squar e meter s Test is not perfo rmed on patie nts under the age of 18 Not Available [facility] Department [address] [place], [address] 10/17/2021 22:47:46 10/18/19 22 10/17/2021 COMPR EHENS KENNY MET. PANEL glucose 95 mg/dL 70-106 normal Not Available [facility] Department [address] [place], [address] 10/17/2021 22:47:46 10/18/19 22 10/17/2021 COMPR EHENS KENNY MET. PANEL calcium 9.3 mg/dL 8.4-10 .3 normal Not Available [facility] Department [address] [place], [address] 10/17/2021 22:47:46 10/18/19 22 10/17/2021 COMPR EHENS KENNY MET. PANEL bilirubin total 0.4 mg/dL 0.2-1. 2 normal Not Available [facility] Department [address] [place], [address] 10/17/2021 22:47:46 10/18/19 22 10/17/2021 COMPR EHENS KENNY MET. PANEL aspartate amino transferase 16 U/L 5-40 normal Not Available [facility] Department [address], [place], [id number] 10/17/2021 22:47:46 10/18/19 22 10/17/2021 COMPR EHENS KENNY MET. PANEL alanine aminotransfe rase 9 U/L 5-41 normal Not Available [facility] Department [address] [place], [address] 10/17/2021 22:47:46 10/18/19 22 10/17/2021 COMPR EHENS KENNY MET. PANEL total protein 7.0 g/dL 6.4-8. 3 normal Not Available [facility] Department [address] [place], [address] 10/17/2021 22:47:46 10/18/19 22 10/17/2021 COMPR EHENS KENNY MET. PANEL albumin level 4.4 g/dL 3.5-5. 2 normal Not Available [facility] Department [address] [place], [address] 10/17/2021 22:47:46 10/18/19 22 10/17/2021 COMPR EHENS KENNY MET. PANEL globulin 2.6 gm/dL 2.0-3. 5 normal Not Available [facility] Department [address] [place], [address] 10/17/2021 22:47:46 10/18/19 22 10/17/2021 COMPR EHENS KENNY MET. PANEL albumin globulin ratio 1.7 % 1.1-2. 5 normal Not Available [facility] Department [address] [place], [address] 10/17/2021 22:47:46 10/18/19 22 10/17/2021 COMPR GUTIERREZ KENNY MET. PANEL alkaline phosphatase 80 U/L 40-129 normal Not Available [facility] Department [address] [place], [address] 10/17/2021 22:47:46 10/18/19 22 10/17/2021 LIPAS E lipase 17 U/L 13-60 normal Not Available [facility] Department [address] [place], [address] 10/17/2021 22:47:47 10/19/19 22 10/18/2021 rapid SARS CoV 2 Ag, QL IA, respi rator y speci men Result: negati ve Not Available In-Office Order Internal Use Only DO Not Attach Compendium DO Not Attach Compendium, Do Not Delete/merge, [id number] 10/18/2021 16:16:28 10/19/19 22 10/18/2021 rapid SARS CoV 2 Ag, QL IA, respi rator y speci men Internal Control Not Available In-Off ice Order Internal Use Only DO Not Attach Compendium DO Not Attach Compendium, Do Not Delete/merge, [id number] 10/18/2021 16:16:28 10/19/19 22 10/18/2021 rapid SARS CoV 2 Ag, QL IA, respi rator y speci men Lot #: Not Available In-Office Order Internal Use Only DO Not Attach Compendium DO Not Attach Compendium, Do Not Delete/merge, [id number] 10/18/2021 16:16:28 10/19/19 22 10/18/2021 rapid SARS CoV 2 Ag, QL IA, respi rator y speci men Expiration Date: Not Available In-Off ice Order Internal Use Only DO Not Attach Compendium DO Not Attach Compendium, Do Not Delete/merge, [id number] 10/18/2021 16:16:28 10/19/19 22 10/18/2021 rapid SARS CoV 2 Ag, QL IA, respi rator y speci men Room Temp: Not Available In-Offi ce Order Internal Use Only DO Not Attach Compendium DO Not Attach Compendium, Do Not Delete/merge, [id number] 10/18/2021 16:16:28 11/13/19 22 11/12/2021 COMPL ETE BLOOD COUNT AUTO DIFF white blood count 6.73 K/uL 3.5-11 .0 normal Not Available [facility] Department [address] [place] [address], [address] 11/12/2021 07:08:43 11/13/19 22 11/12/2021 COMPL ETE BLOOD COUNT AUTO DIFF red blood count 5.16 M/uL 3.90-5 .50 normal Not Available [facility] Department [address] [place] [address], [address] 11/12/2021 07:08:43 11/13/19 22 11/12/2021 COMPL ETE BLOOD COUNT AUTO DIFF hemoglobin 15.3 g/dL 14.0-1 8.0 normal Not Available [facility] Department [address] [place] [address], 97[address] 11/12/2021 07:08:43 11/13/1911/12/2021 COMPL ETE BLOOD COUNT AUTO DIFF hematocrit 44.4 % 42.0-5 4.0 normal Not Available [facility] Department [address] [place] [address], [address] 11/12/2021 07:08:43 11/13/19 22 11/12/2021 COMPL ETE BLOOD COUNT AUTO DIFF mean corpuscular volume 86.0 fL 80.0-1 00.0 normal Not Available [facility] Department [address] [place] [address], 34[address] 11/12/2021 07:08:43 11/13/19 22 11/12/2021 COMPL ETE BLOOD COUNT AUTO DIFF mean corpuscular hemoglobin 29.7 pg 25.4-3 4.6 normal Not Available [facility] Department [address] [place] [address], 70899 11/12/2021 07:08:43 11/13/19 22 11/12/2021 COMPL ETE BLOOD COUNT AUTO DIFF mean corpuscular HGB conc 34.5 g/dL 31.0-3 7.0 normal Not Available [facility] Department [address] [place] [address], 267[address] 11/12/2021 07:08:43 11/13/19 22 11/12/2021 COMPL ETE BLOOD COUNT AUTO DIFF red cell distribution width 13.4 % 11.5-1 4.5 normal Not Available [facility] Department [address] [place] [address], 30[address] 11/12/2021 07:08:43 11/13/19 22 11/12/2021 COMPL ETE BLOOD COUNT AUTO DIFF platelet count 304 K/uL 150-40 0 normal Not Available [facility] Department [address] [place] [address], 26365 11/12/2021 07:08:43 11/13/19 22 11/12/2021 COMPL ETE BLOOD COUNT AUTO DIFF neutrophils percent auto 62.2 % 35.0-6 6.0 normal Not Available [facility] Department [address] [place] [address], 29926 11/12/2021 07:08:43 11/13/19 22 11/12/2021 COMPL ETE BLOOD COUNT AUTO DIFF lymphocytes percent auto 29.9 % 25.0-4 5.0 normal Not Available [facility] Department [address] [place] [address], 35516 11/12/2021 07:08:43 11/13/19 22 11/12/2021 COMPL ETE BLOOD COUNT AUTO DIFF monocytes percent auto 5.9 % 0.0-13 .0 normal Not Available [facility] Department [address] [place] [address], 439[address] 11/12/2021 07:08:43 11/13/19 22 11/12/2021 COMPL ETE BLOOD COUNT AUTO DIFF eosinophils percent auto 1.6 % 0.0-8. 0 normal Not Available [facility] Department [address] [place] [address], 857[address] 11/12/2021 07:08:43 11/13/19 22 11/12/2021 COMPL ETE BLOOD COUNT AUTO DIFF basophils percent auto 0.4 % 0.0-1. 0 normal Not Available [facility] Department [address] [place] [address], 68[address] 11/12/2021 07:08:43 11/13/19 22 11/12/2021 COMPL ETE BLOOD COUNT AUTO DIFF neutrophils absolute auto 4.18 K/uL 1.5-7. 5 normal Cauti on: Inter preta tion of ANC resul ts witho ut inclu danny of the WBC diffe renti al resul ts may lead to maranda eous diagn osis; for examp le, mario alberto ng myelo proli ferat kenny or lymph oprol ifera tive disor ders. Not Available [facility] Department [address] [place] [address], 86[address] 11/12/2021 07:08:43 11/13/19 22 11/12/2021 COMPL ETE BLOOD COUNT AUTO DIFF lymphocytes absolute auto 2.01 K/uL 0.8-4. 8 normal Not Available [facility] Department [address] [place] [address], 11763 11/12/2021 07:08:43 11/13/19 22 11/12/2021 COMPL ETE BLOOD COUNT AUTO DIFF monocytes absolute auto 0.40 K/uL 0.4-1. 3 normal Not Available [facility] Department [address] [place] [address], 86[address] 11/12/2021 07:08:43 11/13/19 22 11/12/2021 COMPL ETE BLOOD COUNT AUTO DIFF eosinophils absolute auto 0.11 K/uL 0.0-0. 8 normal Not Available [facility] Department [address] [place] [address], 41675 11/12/2021 07:08:43 11/13/19 22 11/12/2021 COMPL ETE BLOOD COUNT AUTO DIFF basophils absolute auto 0.03 K/uL 0.0-0. 6 normal Not Available [facility] Department [address] [place] [address], 40634 11/12/2021 07:08:43 11/13/19 22 11/12/2021 COMPR EHENS KENNY MET. PANEL sodium 139 mmol/ L 136-14 5 normal Not Available [facility] Department [address] [place] [address], 46[address] 11/12/2021 07:26:17 11/13/19 22 11/12/2021 COMPR EHENS KENNY MET. PANEL potassium 4.1 mmol/ L 3.5-5. 1 normal Not Available [facility] Department [address] [place] [address], 313[address] 11/12/2021 07:26:17 11/13/19 22 11/12/2021 COMPR EHENS KENNY MET. PANEL chloride 102 mmol/ L 98-107 normal Not Available [facility] Department [address] [place] [address], 570[address] 11/12/2021 07:26:17 11/13/19 22 11/12/2021 COMPR EHENS KENNY MET. PANEL carbon dioxide 25.8 mmol/ L 22-29 normal Not Available [facility] Department [address] [place], [address] 11/12/2021 07:26:17 11/13/19 22 11/12/2021 COMPR EHENS KENNY MET. PANEL anion gap 15 mmol/ L 10-20 normal Not Available [facility] Department [address] [place], [address] 11/12/2021 07:26:17 11/13/19 22 11/12/2021 COMPR EHENS KENNY MET. PANEL blood urea nitrogen 18 mg/dL 6-20 normal Not Available [facility] Department [address] [place], [address] 11/12/2021 07:26:11/13/19 22 11/12/2021 COMPR EHENS KENNY MET. PANEL creatinine 0.98 mg/dL 0.70-1 .2 normal Not Available [facility] Department [address] [place], [address] 11/12/2021 07:26:17 11/13/19 22 11/12/2021 COMPR EHENS KENNY MET. PANEL glomerular filtration rate > 90 GFR Value : ml/mi n/1.7 3 squar e meter s * If patie nt is Afric [place], multi ply resul t by 1.159 Chron ic Kidne y Disea se is defin ed as less than 60 ml/mi n/1.7 3 squar e meter s. Kidne y failu re is less than 15 ml/mi n/1.7 3 squar e meter s Test is not perfo rmed on patie nts under the age of 18 Not Available [facility] Department [address] [place], [address] 11/12/2021 07:26:11/13/19 22 11/12/2021 COMPR EHENS KENNY MET. PANEL glucose 109 mg/dL 70-106 high Not Available [facility] Department [address] [place], [address] 11/12/2021 07:26:17 11/13/19 22 11/12/2021 COMPR EHENS KENNY MET. PANEL calcium 9.6 mg/dL 8.4-10 .3 normal Not Available [facility] Department [address] [place], [address] 11/12/2021 07:26:17 11/13/19 22 11/12/2021 COMPR EHENS KENNY MET. PANEL bilirubin total 0.6 mg/dL 0.2-1. 2 normal Not Available [facility] Department [address] [place], [address] 11/12/2021 07:26:17 11/13/19 22 11/12/2021 COMPR EHENS KENNY MET. PANEL aspartate amino transferase 18 U/L 5-40 normal Not Available [facility] Department [address] [place], [address] 11/12/2021 07:26:17 11/13/19 22 11/12/2021 COMPR EHENS KENNY MET. PANEL alanine aminotransfe rase 11 U/L 5-41 normal Not Available [facility] Department [address] [place], [address] 11/12/2021 07:26:17 11/13/19 22 11/12/2021 COMPR EHENS KENNY MET. PANEL total protein 7.5 g/dL 6.4-8. 3 normal Not Available [facility] Department [address] [place], [address] 11/12/2021 07:26:17 11/13/19 22 11/12/2021 COMPR EHENS KENNY MET. PANEL albumin level 4.7 g/dL 3.5-5. 2 normal Not Available [facility] Department [address] [place], [address] 11/12/2021 07:26:17 11/13/19 22 11/12/2021 COMPR EHENS KENNY MET. PANEL globulin 2.8 gm/dL 2.0-3. 5 normal Not Available [facility] Department [address] [place], [address] 11/12/2021 07:26:17 11/13/19 22 11/12/2021 COMPR EHENS KENNY MET. PANEL albumin globulin ratio 1.7 % 1.1-2. 5 normal Not Available [facility] Department [address] [place], [address] 11/12/2021 07:26:17 11/13/19 22 11/12/2021 COMPR EHENS KENNY MET. PANEL alkaline phosphatase 76 U/L 40-129 normal Not Available [facility] Department [address] [place], [address] 11/12/2021 07:26:17 11/13/19 22 11/12/2021 LIPAS E lipase 19 U/L 13-60 normal Not Available [facility] Department [address] [place], [address] 11/12/2021 07:26:17 01/12/20 22 01/11/2022 COMPL ETE BLOOD COUNT AUTO DIFF white blood count 5.25 K/uL 3.5-11 .0 normal Not Available [facility] Department [address] [place] [address], 65690 01/11/2022 15:52:44 01/12/20 22 01/11/2022 COMPL ETE BLOOD COUNT AUTO DIFF red blood count 5.38 M/uL 3.90-5 .50 normal Not Available [facility] Department [address] [place] [address], 65[address] 01/11/2022 15:52:44 01/12/20 22 01/11/2022 COMPL ETE BLOOD COUNT AUTO DIFF hemoglobin 15.6 g/dL 14.0-1 8.0 normal Not Available [facility] Department [address] [place] [address], 70610 01/11/2022 15:52:44 01/12/20 22 01/11/2022 COMPL ETE BLOOD COUNT AUTO DIFF hematocrit 45.8 % 42.0-5 4.0 normal Not Available [facility] Department [address] [place] [address], 55834 01/11/2022 15:52:44 01/12/20 22 01/11/2022 COMPL ETE BLOOD COUNT AUTO DIFF mean corpuscular volume 85.1 fL 80.0-1 00.0 normal Not Available [facility] Department [address] [place] [address], 12240 01/11/2022 15:52:44 01/12/20 22 01/11/2022 COMPL ETE BLOOD COUNT AUTO DIFF mean corpuscular hemoglobin 29.0 pg 25.4-3 4.6 normal Not Available [facility] Department [address] [place], [address] 01/11/2022 15:52:44 01/12/20 22 01/11/2022 COMPL ETE BLOOD COUNT AUTO DIFF mean corpuscular HGB conc 34.1 g/dL 31.0-3 7.0 normal Not Available [facility] Department [address] [place] [address], 24852 01/11/2022 15:52:44 01/12/20 22 01/11/2022 COMPL ETE BLOOD COUNT AUTO DIFF red cell distribution width 12.9 % 11.5-1 4.5 normal Not Available [facility] Department [address] [place] [address], 93939 01/11/2022 15:52:44 01/12/20 22 01/11/2022 COMPL ETE BLOOD COUNT AUTO DIFF platelet count 313 K/uL 150-40 0 normal Not Available [facility] Department [address] [place] [address], 87955 01/11/2022 15:52:44 01/12/20 22 01/11/2022 COMPL ETE BLOOD COUNT AUTO DIFF neutrophils percent auto 69.5 % 35.0-6 6.0 high Not Available [facility] Department [address] [place] [address], 36293 01/11/2022 15:52:44 01/12/20 22 01/11/2022 COMPL ETE BLOOD COUNT AUTO DIFF imm gran pct auto 0.0 % 0.0-0. 6 normal Not Available [facility] Department [address] [place] [address], 51203 01/11/2022 15:52:44 01/12/20 22 01/11/2022 COMPL ETE BLOOD COUNT AUTO DIFF lymphocytes percent auto 24.6 % 25.0-4 5.0 low Not Available [facility] Department [address] [place] [address], 39846 01/11/2022 15:52:44 01/12/20 22 01/11/2022 COMPL ETE BLOOD COUNT AUTO DIFF monocytes percent auto 4.2 % 0.0-13 .0 normal Not Available [facility] Department [address] [place] [address], 42155 01/11/2022 15:52:44 01/12/20 22 01/11/2022 COMPL ETE BLOOD COUNT AUTO DIFF eosinophils percent auto 1.1 % 0.0-8. 0 normal Not Available [facility] Department [address] [place] [address], 34544 01/11/2022 15:52:44 01/12/20 22 01/11/2022 COMPL ETE BLOOD COUNT AUTO DIFF basophils percent auto 0.6 % 0.0-1. 0 normal Not Available [facility] Department [address] [place], [address] 01/11/2022 15:52:44 01/12/20 22 01/11/2022 COMPL ETE BLOOD COUNT AUTO DIFF neutrophils absolute auto 3.65 K/uL 1.5-7. 5 normal Cauti on: Inter preta tion of ANC resul ts witho ut inclu danny of the WBC diffe renti al resul ts may lead to maranda eous diagn osis; for examp le, mario alberto ng myelo proli ferat kenny or lymph oprol ifera tive disor ders. Not Available [facility] Department [address] [place] [address], 79629 01/11/2022 15:52:44 01/12/20 22 01/11/2022 COMPL ETE BLOOD COUNT AUTO DIFF imm gran abs auto 0.00 K/uL 0.00-0 .09 normal Not Available [facility] Department [address] [place] [address], 17132 01/11/2022 15:52:44 01/12/20 22 01/11/2022 COMPL ETE BLOOD COUNT AUTO DIFF lymphocytes absolute auto 1.29 K/uL 0.8-4. 8 normal Not Available [facility] Department [address] [place] [address], 89979 01/11/2022 15:52:44 01/12/20 22 01/11/2022 COMPL ETE BLOOD COUNT AUTO DIFF monocytes absolute auto 0.22 K/uL 0.4-1. 3 low Not Available [facility] Department [address] [place], [address] 01/11/2022 15:52:44 01/12/20 22 01/11/2022 COMPL ETE BLOOD COUNT AUTO DIFF eosinophils absolute auto 0.06 K/uL 0.0-0. 8 normal Not Available [facility] Department [address] [place] [address], 73665 01/11/2022 15:52:44 01/12/20 22 01/11/2022 COMPL ETE BLOOD COUNT AUTO DIFF basophils absolute auto 0.03 K/uL 0.0-0. 6 normal Not Available [facility] Department [address] [place], [address] 01/11/2022 15:52:44 01/12/20 22 01/11/2022 COMPR EHENS KENNY MET. PANEL sodium 137 mmol/ L 136-14 5 normal Not Available [facility] Department [address] [place], [address] 01/11/2022 16:21:59 01/12/20 22 01/11/2022 COMPR EHENS KENNY MET. PANEL potassium 4.5 mmol/ L 3.5-5. 1 normal Not Available [facility] Department [address] [place], [address] 01/11/2022 16:21:59 01/12/20 22 01/11/2022 COMPR EHENS KENNY MET. PANEL chloride 100 mmol/ L 98-107 normal Not Available [facility] Department [address] [place] [address], 65786 01/11/2022 16:21:59 01/12/20 22 01/11/2022 COMPR EHENS KENNY MET. PANEL carbon dioxide 23.8 mmol/ L 22-29 normal Not Available [facility] Department [address] [place], [address] 01/11/2022 16:21:59 01/12/20 22 01/11/2022 COMPR EHENS KENNY MET. PANEL anion gap 17 mmol/ L 10-20 normal Not Available [facility] Department [address] [place], [address] 01/11/2022 16:21:59 01/12/20 22 01/11/2022 COMPR EHENS KENNY MET. PANEL blood urea nitrogen 9 mg/dL 6-20 normal Not Available [facility] Department [address] [place], [address] 01/11/2022 16:21:59 01/12/20 22 01/11/2022 COMPR EHENS KENNY MET. PANEL creatinine 0.90 mg/dL 0.70-1 .2 normal Not Available [facility] Department [address] [place], [address] 01/11/2022 16:21:59 01/12/20 22 01/11/2022 COMPR EHENS KENNY MET. PANEL glomerular filtration rate > 90 GFR Value : ml/mi n/1.7 3 squar e meter s * If patie nt is Afric [place], multi ply resul t by 1.159 Chron ic Kidne y Disea se is defin ed as less than 60 ml/mi n/1.7 3 squar e meter s. Kidne y failu re is less than 15 ml/mi n/1.7 3 squar e meter s Test is not perfo rmed on patie nts under the age of 18 Not Available [facility] Department [address] [place] [address], 18232 01/11/2022 16:21:59 01/12/20 22 01/11/2022 COMPR EHENS KENNY MET. PANEL glucose 98 mg/dL 70-106 normal Not Available [facility] Department [address] [place] [address], 55103 01/11/2022 16:21:59 01/12/20 22 01/11/2022 COMPR EHENS KENNY MET. PANEL calcium 10.0 mg/dL 8.6-10 .3 normal Not Available [facility] Department [address] [place] [address], 32767 01/11/2022 16:21:59 01/12/20 22 01/11/2022 COMPR EHENS KENNY MET. PANEL bilirubin total 0.6 mg/dL 0.2-1. 2 normal Not Available [facility] Department [address] [place], [address] 01/11/2022 16:21:59 01/12/20 22 01/11/2022 COMPR EHENS KENNY MET. PANEL aspartate amino transferase 18 U/L 5-40 normal Not Available [facility] Department [address] [place], [address] 01/11/2022 16:21:59 01/12/20 22 01/11/2022 COMPR EHENS KENNY MET. PANEL alanine aminotransfe rase 9 U/L 5-41 normal Not Available [facility] Department [address] [place], [address] 01/11/2022 16:21:59 01/12/20 22 01/11/2022 COMPR EHENS KENNY MET. PANEL total protein 7.5 g/dL 6.4-8. 3 normal Not Available [facility] Department [address] [place], [address] 01/11/2022 16:21:59 01/12/20 22 01/11/2022 COMPR EHENS KENNY MET. PANEL albumin level 4.8 g/dL 3.5-5. 2 normal Not Available [facility] Department [address] [place], [address] 01/11/2022 16:21:59 01/12/20 22 01/11/2022 COMPR EHENS KENNY MET. PANEL globulin 2.7 gm/dL 2.0-3. 5 normal Not Available [facility] Department [address] [place], [address] 01/11/2022 16:21:59 01/12/20 22 01/11/2022 COMPR EHENS KENNY MET. PANEL albumin globulin ratio 1.8 % 1.1-2. 5 normal Not Available [facility] Department [address] [place], [address] 01/11/2022 16:21:59 01/12/20 22 01/11/2022 COMPR EHENS KENNY MET. PANEL alkaline phosphatase 74 U/L 40-129 normal Not Available [facility] Department [address] [place], [address] 01/11/2022 16:21:59 01/12/20 22 01/11/2022 TSH REFLE X FREE T4 TSH reflex free T4 0.46 uIU/m L 0.27-4 .20 normal Not Available [facility] Department [address] [place], [address] 01/11/2022 16:22:01 01/12/20 22 01/12/2022 LYME DIS TOTAL AB W/ REFLE X lyme total antibody dimitri Negati ve negati ve Lyme antib odies not detec sin. Refle x testi ng is not indic ated. No labor atory evide nce of infec tion with B. burgd orfer i (Lyme disea se). Negat kenny resul ts may occur in patie nts recen tly infec sin (less than or equal to 14 days) with B. burgd orfer i. If recen t infec tion is suspe cted, repea t testi ng on a new sampl e colle cted in 7 to 14 days is recom andrez white Perfo rmed at: 01 - [facility] [address], [place], [place] [address] Lab Direc tor: Laverne Boland od, MD, Phone : [phone] Not Available [facility] Department [address] [place], [address] 01/12/2022 10:24:21 06/05/19 23 06/05/2022 SARS- COV-2 (NAAT ) sars-cov-2 NOT DETECT ED not detect . The Aptim a SARS- CoV-2 assay is a nucle ic acid ampli ficat ion in vitro diagn ostic test inten ded for the quali tativ e detec tion of RNA from SARS- CoV-2 using Trans cript ion Media sin Ampli ficat ion (TMA) isola sin and purif ied from nasop haryn geal (ANALYTICAL DATA MINER), nasal , mid-t urbin ate, and oroph aryng eal (OP) swab speci mens obtai baylee from indiv idual s meeti ng COVID -19 clini se and/o r epide miolo gical crite danyel. The Aptim a TMA metho d is equiv alent in sensi tivit y and speci ficit y to metho ds utili zing PCR and RT-PC R. Resul ts are for the ident ifica tion of SARS- CoV-2 RNA which is gener ally detec table in upper respi rator y sampl es durin g the acute phase of infec tion. Posit kenny resul ts are indic ative of the prese nce of SARS- CoV-2 RNA; clini se corre latio n with patie nt histo ry and other diagn ostic infor matio n is neces arabella to deter mine patie nt infec tion statu s. Posit kenny resul ts do not rule out bacte rial infec tion or co-in fecti on with other virus es. Negat kenny resul ts do not precl ude SARS- CoV-2 infec tion and shoul d not be used as the sole basis for patie nt manag ement decis ions. Negat kenny resul ts must be combi baylee with clini se obser vatio ns, patie nt histo ry, and adams augustine infor jimena larson. The Aptim a SARS- CoV-2 assay is only for use under the Food and Drug Admin istra tion' s Emerg ency Use Autho iris hernandez (EUA) . Not Available [facility] Department [address] [facility], [place], [address] 06/05/2022 09:02:19 06/05/19 23 06/04/2022 rapid strep group A, throa t Result negati ve Not Available [address] [place], [address], 06/04/2022 10:07:52 06/05/19 23 06/04/2022 rapid strep group A, throa t Internal Control Valid Not Available [address] [place], [address], 06/04/2022 10:07:52 06/05/19 23 06/04/2022 rapid strep group A, throa t Lot # [id number] Not Available [address] [place], [address], 06/04/2022 10:07:52 06/05/19 23 06/04/2022 rapid strep group A, throa t Exp. Date 4 Not Available [address] [place], [address], 06/04/2022 10:07:52 06/05/19 23 06/04/2022 rapid SARS CoV 2 Ag, QL IA, respi rator y speci men Result: negati ve Not Available In-Office Order Internal Use Only DO Not Attach Compendium DO Not Attach Compendium, Do Not Delete/merge, [id number] 06/04/2022 09:05:53 06/05/19 23 06/04/2022 rapid SARS CoV 2 Ag, QL IA, respi rator y speci men Internal Control Valid Not Available In-Off ice Order Internal Use Only DO Not Attach Compendium DO Not Attach Compendium, Do Not Delete/merge, [id number] 06/04/2022 09:05:53 06/05/19 23 06/04/2022 rapid SARS CoV 2 Ag, QL IA, respi rator y speci men Lot #: [id number] Not Available In-Office Order Internal Use Only DO Not Attach Compendium DO Not Attach Compendium, Do Not Delete/merge, [id number] 06/04/2022 09:05:53 06/05/19 23 06/04/2022 rapid SARS CoV 2 Ag, QL IA, respi rator y speci men Expiration Date: Not Available In-Office Order Internal Use Only DO Not Attach Compendium DO Not Attach Compendium, Do Not Delete/merge, [id number] 06/04/2022 09:05:53 06/05/19 23 06/04/2022 rapid SARS CoV 2 Ag, QL IA, respi rator y speci men Room Temp: Not Available In-Offi ce Order Internal Use Only DO Not Attach Compendium DO Not Attach Compendium, Do Not Delete/merge, [id number] 06/04/2022 09:05:53 09/06/19 23 09/05/2022 COMPL ETE BLOOD COUNT AUTO DIFF white blood count 10.83 K/uL 3.5-11 .0 normal Not Available [facility] [address] [place] [address], [id number] 09/05/2022 18:57:48 09/06/19 23 09/05/2022 COMPL ETE BLOOD COUNT AUTO DIFF red blood count 5.14 M/uL 3.90-5 .50 normal Not Available [facility] [address] [place] [address], 97178 09/05/2022 18:57:48 09/06/19 23 09/05/2022 COMPL ETE BLOOD COUNT AUTO DIFF hemoglobin 15.3 g/dL 14.0-1 8.0 normal Not Available [facility] [address] [place] [address], 43337 09/05/2022 18:57:48 09/06/19 23 09/05/2022 COMPL ETE BLOOD COUNT AUTO DIFF hematocrit 44.2 % 42.0-5 4.0 normal Not Available [facility] [address] [place] [address], 70631 09/05/2022 18:57:48 09/06/19 23 09/05/2022 COMPL ETE BLOOD COUNT AUTO DIFF mean corpuscular volume 86.0 fL 80.0-1 00.0 normal Not Available [facility] [address] [place], [address] 09/05/2022 18:57:48 09/06/1909/05/2022 COMPL ETE BLOOD COUNT AUTO DIFF mean corpuscular hemoglobin 29.8 pg 25.4-3 4.6 normal Not Available [facility] [address] [place], [address] 09/05/2022 18:57:48 09/06/19 23 09/05/2022 COMPL ETE BLOOD COUNT AUTO DIFF mean corpuscular HGB conc 34.6 g/dL 31.0-3 7.0 normal Not Available [facility] [address] [place] [address], 13357 09/05/2022 18:57:48 09/06/1909/05/2022 COMPL ETE BLOOD COUNT AUTO DIFF red cell distribution width 13.6 % 11.5-1 4.5 normal Not Available [facility] [address] [place] [address], 78169 09/05/2022 18:57:48 09/06/1909/05/2022 COMPL ETE BLOOD COUNT AUTO DIFF platelet count 275 K/uL 150-40 0 normal Not Available [facility] [address] [place] [address], 38811 09/05/2022 18:57:48 09/06/1909/05/2022 COMPL ETE BLOOD COUNT AUTO DIFF neutrophils percent auto 78.8 % 35.0-6 6.0 high Not Available [facility] [address] [place] [address], 22433 09/05/2022 18:57:48 09/06/1909/05/2022 COMPL ETE BLOOD COUNT AUTO DIFF lymphocytes percent auto 13.0 % 25.0-4 5.0 low Not Available [facility] [address] [place] [address], 33338 09/05/2022 18:57:48 09/06/1909/05/2022 COMPL ETE BLOOD COUNT AUTO DIFF monocytes percent auto 7.3 % 0.0-13 .0 normal Not Available [facility] [address] [place], [address] 09/05/2022 18:57:48 09/06/19 23 09/05/2022 COMPL ETE BLOOD COUNT AUTO DIFF eosinophils percent auto 0.6 % 0.0-8. 0 normal Not Available [facility] [address] [place] [address], 49329 09/05/2022 18:57:48 09/06/19 23 09/05/2022 COMPL ETE BLOOD COUNT AUTO DIFF basophils percent auto 0.3 % 0.0-1. 0 normal Not Available [facility] [address] [place] [address], 14977 09/05/2022 18:57:48 09/06/1909/05/2022 COMPL ETE BLOOD COUNT AUTO DIFF neutrophils absolute auto 8.54 K/uL 1.5-7. 5 high Cauti on: Inter preta tion of ANC resul ts witho ut inclu danny of the WBC diffe renti al resul ts may lead to maranda eous diagn osis; for examp le, mario alberto ng myelo proli ferat kenny or lymph oprol ifera tive disor ders. Not Available [facility] [address] [place] [address], 30113 09/05/2022 18:57:48 09/06/19 23 09/05/2022 COMPL ETE BLOOD COUNT AUTO DIFF lymphocytes absolute auto 1.41 K/uL 0.8-4. 8 normal Not Available [facility] [address] [place] [address], 42242 09/05/2022 18:57:48 09/06/19 23 09/05/2022 COMPL ETE BLOOD COUNT AUTO DIFF monocytes absolute auto 0.79 K/uL 0.4-1. 3 normal Not Available [facility] [address] [place] [address], 37198 09/05/2022 18:57:48 09/06/19 23 09/05/2022 COMPL ETE BLOOD COUNT AUTO DIFF eosinophils absolute auto 0.06 K/uL 0.0-0. 8 normal Not Available [facility] [address] [place] [address], 24650 09/05/2022 18:57:48 09/06/19 23 09/05/2022 COMPL ETE BLOOD COUNT AUTO DIFF basophils absolute auto 0.03 K/uL 0.0-0. 6 normal Not Available [facility] [address] [place] [address], 54571 09/05/2022 18:57:48 09/06/19 23 09/05/2022 COMPR EHENS KENNY MET. PANEL sodium 136 mmol/ L 136-14 5 normal Not Available [facility] [address] [place] [address], 87701 09/05/2022 19:23:44 09/06/19 23 09/05/2022 COMPR EHENS KENNY MET. PANEL potassium 3.5 mmol/ L 3.5-5. 1 normal Not Available [facility] [address] [place] [address], 70108 09/05/2022 19:23:44 09/06/19 23 09/05/2022 COMPR EHENS KENNY MET. PANEL chloride 100 mmol/ L 98-107 normal Not Available [facility] [address] [place] [address], 90752 09/05/2022 19:23:44 09/06/19 23 09/05/2022 COMPR EHENS KENNY MET. PANEL carbon dioxide 20.5 mmol/ L 22-29 low Not Available [facility] [address] [place] [address], 83607 09/05/2022 19:23:44 09/06/19 23 09/05/2022 COMPR EHENS KENNY MET. PANEL anion gap 19 mmol/ L 10-20 normal Not Available [facility] [address] [place] [address], 20689 09/05/2022 19:23:44 09/06/19 23 09/05/2022 COMPR EHENS KENNY MET. PANEL blood urea nitrogen 9 mg/dL 6-20 normal Not Available [facility] [address] [place], [address] 09/05/2022 19:23:44 09/06/19 23 09/05/2022 COMPR EHENS KENNY MET. PANEL creatinine 0.88 mg/dL 0.70-1 .2 normal Not Available [facility] [address] [place] [address], 41235 09/05/2022 19:23:44 09/06/1909/05/2022 COMPR EHENS KENNY MET. PANEL estimated glomerular filt rate 126 GFR Value : mL/mi n/1.7 3 squar e meter s Calcu latio n: CKD-E PI Creat inine Equat ion (2020 ) Chron ic Kidne y Disea se is defin ed as eithe r of the follo wing prese nt for >= 3 month s: - GFR less than 60 mL/mi n/1.7 3 squar e meter s. - Micro album in:Ur . Creat inine Ratio >= 30 mg/g or other marke rs of kidne y damag e Kidne y failu re is less than 15 mL/mi n/1.7 3 squar e meter s This test is not perfo rmed in patie nts under the age of 18. Not Available [facility] [address] [place], [address] 09/05/2022 19:23:44 09/06/1909/05/2022 COMPR EHENS KENNY MET. PANEL glucose 106 mg/dL 70-106 normal Not Available [facility] [address] [place], [address] 09/05/2022 19:23:44 09/06/1909/05/2022 COMPR EHENS KENNY MET. PANEL calcium 10.2 mg/dL 8.4-10 .3 normal Not Available [facility] [address] [place], [address] 09/05/2022 19:23:44 09/06/1909/05/2022 COMPR EHENS KENNY MET. PANEL bilirubin total 0.9 mg/dL 0.2-1. 2 normal Not Available [facility] [address] [place], [address] 09/05/2022 19:23:44 09/06/1909/05/2022 COMPR EHENS KENNY MET. PANEL aspartate amino transferase 23 U/L 5-40 normal Not Available [facility] [address] [place], [address] 09/05/2022 19:23:44 09/06/19 23 09/05/2022 COMPR EHENS KENNY MET. PANEL alanine aminotransfe rase 16 U/L 5-41 normal Not Available [facility] [address] [place], [address] 09/05/2022 19:23:44 09/06/1909/05/2022 COMPR EHENS KENNY MET. PANEL total protein 7.7 g/dL 6.4-8. 3 normal Not Available [facility] [address] [place], [address] 09/05/2022 19:23:44 09/06/1909/05/2022 COMPR EHENS KENNY MET. PANEL albumin level 4.8 g/dL 3.5-5. 2 normal Not Available [facility] [address] [place], [address] 09/05/2022 19:23:44 09/06/1909/05/2022 COMPR EHENS KENNY MET. PANEL globulin 2.9 gm/dL 2.0-3. 5 normal Not Available [facility] [address] [place] [address], 08200 09/05/2022 19:23:44 09/06/1909/05/2022 COMPR EHENS KENNY MET. PANEL albumin globulin ratio 1.7 % 1.1-2. 5 normal Not Available [facility] [address] [place] [address], 51795 09/05/2022 19:23:44 09/06/1909/05/2022 COMPR EHENS KENNY MET. PANEL alkaline phosphatase 78 U/L 40-129 normal Not Available [facility] [address] [place], [address] 09/05/2022 19:23:44 09/06/1909/05/2022 LIPAS E lipase 38 U/L 13-60 normal Not Available [facility] [address] [place] [address], 47713 09/05/2022 19:23:44 05/18/1905/18/2023 STREP TOCOC CUS A RAPID TEST results ----- ----- ----- ----- ----- ----- ----- ----- ----- ----- ----- ----- ----- ----- ----- ----- ----- ----- -- RUN DATE: 05/17 Jayme marshall *Live * - LAB PAGE 1 RUN TIME: 1148 Speci nataliya Nunezi ry ----- ----- ----- ----- ----- ----- ----- ----- ----- ----- ----- ----- ----- ----- ----- ----- ----- ----- -- PATIE NT: William Branch ACCT: [id number] LOC: LASHAE Dodson U: [id number] AGE/S X: 22/M ROOM: RE05/[address]: Padmini fitzpatrick : [birth year]08 BED: DIS: STATU S: REG VAUGHN TLOC: ----- ----- ----- ----- ----- ----- ----- ----- ----- ----- ----- ----- ----- ----- ----- ----- ----- ----- -- SPEC #: [id number] 3S LUCY: 05/17- 130 STATU S: COMP REQ #: [id number] RECD: 05/17- [address]: Padmini fitzpatrick MD [facility] E: Tanja balbuena ENTR: 05/17- [address]: Quique RAMOS C: ORDER ED: Strp A Rapid ----- ----- ----- ----- ----- ----- ----- ----- ----- ----- ----- ----- ----- ----- ----- ----- ----- ----- -- Proce dure Resul t ----- ----- ----- ----- ----- ----- ----- ----- ----- ----- ----- ----- ----- ----- ----- ----- ----- ----- -- Strep tococ cus A Rapid Test Final Resul t: Posit kenny ----- ----- ----- ----- ----- ----- ----- ----- ----- ----- ----- ----- ----- ----- ----- ----- ----- ----- -- END OF REPOR T Not Available [facility] [address] [place] [address], 51231 05/18/2023 11:49:01 08/29/1908/29/2023 COMPL ETE BLOOD COUNT AUTO DIFF white blood count 5.26 K/uL 3.5-11 .0 normal Not Available [facility] [address] [place] [address], 15840 08/29/2023 10:21:08 08/29/19 24 08/29/2023 COMPL ETE BLOOD COUNT AUTO DIFF red blood count 5.13 M/uL 3.90-5 .50 normal Not Available [facility] [address] [place] [address], 44853 08/29/2023 10:21:08 08/29/19 24 08/29/2023 COMPL ETE BLOOD COUNT AUTO DIFF hemoglobin 15.4 g/dL 14.0-1 8.0 normal Not Available [facility] [address] [place] [address], 04868 08/29/2023 10:21:08 08/29/19 24 08/29/2023 COMPL ETE BLOOD COUNT AUTO DIFF hematocrit 45.2 % 42.0-5 4.0 normal Not Available [facility] [address] [place] [address], 34422 08/29/2023 10:21:08 08/29/19 24 08/29/2023 COMPL ETE BLOOD COUNT AUTO DIFF mean corpuscular volume 88.1 fL 80.0-1 00.0 normal Not Available [facility] [address] [place] [address], 68228 08/29/2023 10:21:08 08/29/19 24 08/29/2023 COMPL ETE BLOOD COUNT AUTO DIFF mean corpuscular hemoglobin 30.0 pg 25.4-3 4.6 normal Not Available [facility] [address] [place], [address] 08/29/2023 10:21:08 08/29/19 24 08/29/2023 COMPL ETE BLOOD COUNT AUTO DIFF mean corpuscular HGB conc 34.1 g/dL 31.0-3 7.0 normal Not Available [facility] [address] [place] [address], 83152 08/29/2023 10:21:08 08/29/19 24 08/29/2023 COMPL ETE BLOOD COUNT AUTO DIFF red cell distribution width 13.7 % 11.5-1 4.5 normal Not Available [facility] [address] [place] [address], 64669 08/29/2023 10:21:08 08/29/19 24 08/29/2023 COMPL ETE BLOOD COUNT AUTO DIFF platelet count 278 K/uL 150-40 0 normal Not Available [facility] [address] [place] [address], 85837 08/29/2023 10:21:08 08/29/19 24 08/29/2023 COMPL ETE BLOOD COUNT AUTO DIFF neutrophils percent auto 48.5 % 35.0-6 6.0 normal Not Available [facility] [address] [place] [address], 70696 08/29/2023 10:21:08 08/29/19 24 08/29/2023 COMPL ETE BLOOD COUNT AUTO DIFF lymphocytes percent auto 42.4 % 25.0-4 5.0 normal Not Available [facility] [address] [place] [address], 85128 08/29/2023 10:21:08 08/29/19 24 08/29/2023 COMPL ETE BLOOD COUNT AUTO DIFF monocytes percent auto 7.4 % 0.0-13 .0 normal Not Available [facility] [address] [place], [address] 08/29/2023 10:21:08 08/29/19 24 08/29/2023 COMPL ETE BLOOD COUNT AUTO DIFF eosinophils percent auto 1.1 % 0.0-8. 0 normal Not Available [facility] [address] [place] [address], 43862 08/29/2023 10:21:08 08/29/19 24 08/29/2023 COMPL ETE BLOOD COUNT AUTO DIFF basophils percent auto 0.6 % 0.0-1. 0 normal Not Available [facility] [address] [place] [address], 40601 08/29/2023 10:21:08/29/1908/29/2023 COMPL ETE BLOOD COUNT AUTO DIFF neutrophils absolute auto 2.55 K/uL 1.5-7. 5 normal Not Available [facility] [address] [place] [address], 24164 08/29/2023 10:21:08/29/19 24 08/29/2023 COMPL ETE BLOOD COUNT AUTO DIFF lymphocytes absolute auto 2.23 K/uL 0.8-4. 8 normal Not Available [facility] [address] [place] [address], 45533 08/29/2023 10:21:08 08/29/19 24 08/29/2023 COMPL ETE BLOOD COUNT AUTO DIFF monocytes absolute auto 0.39 K/uL 0.4-1. 3 low Not Available [facility] [address] [place] [address], 21378 08/29/2023 10:21:08 08/29/19 24 08/29/2023 COMPL ETE BLOOD COUNT AUTO DIFF eosinophils absolute auto 0.06 K/uL 0.0-0. 8 normal Not Available [facility] [address] [place] [address], 57839 08/29/2023 10:21:08 08/29/19 24 08/29/2023 COMPL ETE BLOOD COUNT AUTO DIFF basophils absolute auto 0.03 K/uL 0.0-0. 6 normal Not Available [facility] [address] [place] [address], 89415 08/29/2023 10:21:08 08/29/19 24 08/29/2023 UA AND RFLX MICRO SCOPI C color urine Yellow yellow Not Available [facility] [address] [place], [address] 08/29/2023 10:21:38 08/29/19 24 08/29/2023 UA AND RFLX MICRO SCOPI C appearance urine Clear clear Not Available [facility] [address] [place], [address] 08/29/2023 10:21:38 08/29/19 24 08/29/2023 UA AND RFLX MICRO SCOPI C specific gravity urine 1.020 1.001- 1.035 Not Available [facility] [address] [place], [address] 08/29/2023 10:21:38 08/29/19 24 08/29/2023 UA AND RFLX MICRO SCOPI C glucose urine UA Negati ve negati ve Not Available [facility] [address] [place], [address] 08/29/2023 10:21:38 08/29/19 24 08/29/2023 UA AND RFLX MICRO SCOPI C bilirubin urine Negati ve negati ve Not Available [facility] [address] [place], [address] 08/29/2023 10:21:38 08/29/19 24 08/29/2023 UA AND RFLX MICRO SCOPI C ketones urine Negati ve negati ve Not Available [facility] [address] [place] [address], 36981 08/29/2023 10:21:38 08/29/19 24 08/29/2023 UA AND RFLX MICRO SCOPI C urine hemoglobin Negati ve negati ve Not Available [facility] [address] [place], [address] 08/29/2023 10:21:38 08/29/19 24 08/29/2023 UA AND RFLX MICRO SCOPI C pH urine 7.5 5.0-8. 0 Not Available [facility] [address] [place], [address] 08/29/2023 10:21:38 08/29/19 24 08/29/2023 UA AND RFLX MICRO SCOPI C protein urine Negati ve mg/dL negati ve Not Available [facility] [address] [place], [address] 08/29/2023 10:21:38 08/29/19 24 08/29/2023 UA AND RFLX MICRO SCOPI C urobilinogen urine 0.2 mg/dL 0.2-1. 0 Not Available [facility] [address] [place], [address] 08/29/2023 10:21:38 08/29/19 24 08/29/2023 UA AND RFLX MICRO SCOPI C nitrite urine Negati ve negati ve Not Available [facility] [address] [place], [address] 08/29/2023 10:21:38 08/29/19 24 08/29/2023 UA AND RFLX MICRO SCOPI C leukocyte esterase urine Negati ve negati ve Not Available [facility] [address] [place], [address] 08/29/2023 10:21:38 08/29/19 24 08/29/2023 COMPR EHENS KENNY MET. PANEL sodium 138 mmol/ L 136-14 5 normal Not Available [facility] [address] [place], [address] 08/29/2023 10:30:46 08/29/19 24 08/29/2023 COMPR EHENS KENNY MET. PANEL potassium 3.8 mmol/ L 3.5-5. 1 normal Not Available [facility] [address] [place] [address], 99287 08/29/2023 10:30:46 08/29/19 24 08/29/2023 COMPR EHENS KENNY MET. PANEL chloride 102 mmol/ L 98-107 normal Not Available [facility] [address] [place] [address], 00111 08/29/2023 10:30:46 08/29/19 24 08/29/2023 COMPR EHENS KENNY MET. PANEL carbon dioxide 22.2 mmol/ L 22-29 normal Not Available [facility] [address] [place] [address], 06407 08/29/2023 10:30:46 08/29/19 24 08/29/2023 COMPR EHENS KENNY MET. PANEL anion gap 18 mmol/ L 10-20 normal Not Available [facility] [address] [place], [address] 08/29/2023 10:30:46 08/29/19 24 08/29/2023 COMPR EHENS KENNY MET. PANEL blood urea nitrogen 12 mg/dL 6-20 normal Not Available [facility] [address] [place], [address] 08/29/2023 10:30:46 08/29/19 24 08/29/2023 COMPR EHENS KENNY MET. PANEL creatinine 0.90 mg/dL 0.70-1 .2 normal Not Available [facility] [address] [place], [address] 08/29/2023 10:30:46 08/29/19 24 08/29/2023 COMPR EHENS KENNY MET. PANEL estimated glomerular filt rate 125 GFR Value : mL/mi n/1.7 3 squar e meter s Calcu latio n: CKD-E PI Creat inine Equat ion (2020 ) Chron ic Kidne y Disea se is defin ed as eithe r of the follo wing prese nt for >= 3 month s: - GFR less than 60 mL/mi n/1.7 3 squar e meter s. - Micro album in:Ur . Creat inine Ratio >= 30 mg/g or other marke rs of lyle carter e Kidne y failu re is less than 15 mL/mi n/1.7 3 squar e meter s This test is not perfo rmed in patie nts under the age of 18. Not Available [facility] [address] [place], [address] 08/29/2023 10:30:46 08/29/19 24 08/29/2023 COMPR EHENS KENNY MET. PANEL glucose 115 mg/dL 70-106 high Not Available [facility] [address] [place], [address] 08/29/2023 10:30:46 08/29/19 24 08/29/2023 COMPR EHENS KENNY MET. PANEL calcium 10.2 mg/dL 8.4-10 .3 normal Not Available [facility] [address] [place], [address] 08/29/2023 10:30:46 08/29/19 24 08/29/2023 COMPR EHENS KENNY MET. PANEL bilirubin total 0.4 mg/dL 0.2-1. 2 normal Not Available [facility] [address] [place] [address], 79351 08/29/2023 10:30:46 08/29/19 24 08/29/2023 COMPR EHENS KENNY MET. PANEL aspartate amino transferase 11 U/L 5-40 normal Not Available [facility] Department [address] [place] [address], 77429 08/29/2023 10:30:46 08/29/19 24 08/29/2023 COMPR EHENS KENNY MET. PANEL alanine aminotransfe rase 7 U/L 5-41 normal Not Available [facility] [address] [place] [address], 06385 08/29/2023 10:30:46 08/29/19 24 08/29/2023 COMPR EHENS KENNY MET. PANEL total protein 8.0 g/dL 6.4-8. 3 normal Not Available [facility] [address] [place] [address], 25543 08/29/2023 10:30:46 08/29/19 24 08/29/2023 COMPR EHENS KENNY MET. PANEL albumin level 4.8 g/dL 3.5-5. 2 normal Not Available [facility] [address] [place] [address], 36991 08/29/2023 10:30:46 08/29/19 24 08/29/2023 COMPR EHENS KENNY MET. PANEL globulin 3.2 gm/dL 2.0-3. 5 normal Not Available [facility] [address] [place] [address], 37183 08/29/2023 10:30:46 08/29/19 24 08/29/2023 COMPR EHENS KENNY MET. PANEL albumin globulin ratio 1.5 % 1.1-2. 5 normal Not Available [facility] [address] [place] [address], 28402 08/29/2023 10:30:46 08/29/19 24 08/29/2023 COMPR EHENS KENNY MET. PANEL alkaline phosphatase 75 U/L 40-129 normal Not Available [facility] Department [address] [place] [address], 19742 08/29/2023 10:30:46 08/29/19 24 08/29/2023 LIPAS E lipase 64 U/L 13-60 high Not Available [facility] [address] [place] [address], 99677 08/29/2023 10:30:46 09/14/19 24 09/14/2023 COMPL ETE BLOOD COUNT AUTO DIFF white blood count 12.88 K/uL 3.5-11 .0 high Not Available [facility] [address] [place] [address], 91796 09/14/2023 20:32:26 09/14/19 24 09/14/2023 COMPL ETE BLOOD COUNT AUTO DIFF red blood count 5.10 M/uL 3.90-5 .50 normal Not Available [facility] [address] [place] [address], 85966 09/14/2023 20:32:26 09/14/19 24 09/14/2023 COMPL ETE BLOOD COUNT AUTO DIFF hemoglobin 15.2 g/dL 14.0-1 8.0 normal Not Available [facility] [address] [place] [address], 72787 09/14/2023 20:32:26 09/14/19 24 09/14/2023 COMPL ETE BLOOD COUNT AUTO DIFF hematocrit 43.6 % 42.0-5 4.0 normal Not Available [facility] [address] [place] [address], 41441 09/14/2023 20:32:26 09/14/19 24 09/14/2023 COMPL ETE BLOOD COUNT AUTO DIFF mean corpuscular volume 85.5 fL 80.0-1 00.0 normal Not Available [facility] [address] [place] [address], 95590 09/14/2023 20:32:26 09/14/19 24 09/14/2023 COMPL ETE BLOOD COUNT AUTO DIFF mean corpuscular hemoglobin 29.8 pg 25.4-3 4.6 normal Not Available [facility] [address] [place] [address], 51418 09/14/2023 20:32:26 09/14/19 24 09/14/2023 COMPL ETE BLOOD COUNT AUTO DIFF mean corpuscular HGB conc 34.9 g/dL 31.0-3 7.0 normal Not Available [facility] [address] [place], [address] 09/14/2023 20:32:26 09/14/19 24 09/14/2023 COMPL ETE BLOOD COUNT AUTO DIFF red cell distribution width 13.6 % 11.5-1 4.5 normal Not Available [facility] [address] [place], [address] 09/14/2023 20:32:26 09/14/19 24 09/14/2023 COMPL ETE BLOOD COUNT AUTO DIFF platelet count 323 K/uL 150-40 0 normal Not Available [facility] [address] [place] [address], 54030 09/14/2023 20:32:26 09/14/19 24 09/14/2023 COMPL ETE BLOOD COUNT AUTO DIFF neutrophils percent auto 95.1 % 35.0-6 6.0 high Not Available [facility] [address] [place] [address], 61306 09/14/2023 20:32:26 09/14/19 24 09/14/2023 COMPL ETE BLOOD COUNT AUTO DIFF lymphocytes percent auto 3.5 % 25.0-4 5.0 low Not Available [facility] [address] [place] [address], 71101 09/14/2023 20:32:26 09/14/19 24 09/14/2023 COMPL ETE BLOOD COUNT AUTO DIFF monocytes percent auto 1.3 % 0.0-13 .0 normal Not Available [facility] [address] [place] [address], 22824 09/14/2023 20:32:26 09/14/19 24 09/14/2023 COMPL ETE BLOOD COUNT AUTO DIFF eosinophils percent auto 0.0 % 0.0-8. 0 normal Not Available [facility] [address] [place] [address], 50452 09/14/2023 20:32:26 09/14/19 24 09/14/2023 COMPL ETE BLOOD COUNT AUTO DIFF basophils percent auto 0.1 % 0.0-1. 0 normal Not Available [facility] [address] [place] [place] [address], [id number] 09/14/2023 20:32:26 09/14/19 24 09/14/2023 COMPL ETE BLOOD COUNT AUTO DIFF neutrophils absolute auto 12.25 K/uL 1.5-7. 5 high Not Available [facility] [address] [place], [address] 09/14/2023 20:32:26 09/14/19 24 09/14/2023 COMPL ETE BLOOD COUNT AUTO DIFF lymphocytes absolute auto 0.45 K/uL 0.8-4. 8 low Not Available [facility] [address] [place] [address], 64804 09/14/2023 20:32:26 09/14/19 24 09/14/2023 COMPL ETE BLOOD COUNT AUTO DIFF monocytes absolute auto 0.17 K/uL 0.4-1. 3 low Not Available [facility] [address] [place] [address], 30932 09/14/2023 20:32:26 09/14/19 24 09/14/2023 COMPL ETE BLOOD COUNT AUTO DIFF eosinophils absolute auto 0.00 K/uL 0.0-0. 8 normal Not Available [facility] [address] [place] [address], 59116 09/14/2023 20:32:26 09/14/19 24 09/14/2023 COMPL ETE BLOOD COUNT AUTO DIFF basophils absolute auto 0.01 K/uL 0.0-0. 6 normal Not Available [facility] [address] [place] [address], 15798 09/14/2023 20:32:26 09/14/19 24 09/14/2023 COMPR EHENS KENNY MET. PANEL sodium 138 mmol/ L 136-14 5 normal Not Available [facility] [address] [place] [address], 51116 09/14/2023 20:54:11 09/14/19 24 09/14/2023 COMPR EHENS KENNY MET. PANEL potassium 3.6 mmol/ L 3.5-5. 1 normal Not Available [facility] [address] [place] [address], 25701 09/14/2023 20:54:11 09/14/19 24 09/14/2023 COMPR EHENS KENNY MET. PANEL chloride 101 mmol/ L 98-107 normal Not Available [facility] [address] [place] [address], 47736 09/14/2023 20:54:11 09/14/19 24 09/14/2023 COMPR EHENS KENNY MET. PANEL carbon dioxide 16.0 mmol/ L 22-29 low Not Available [facility] [address] [place], [address] 09/14/2023 20:54:11 09/14/19 24 09/14/2023 COMPR EHENS KENNY MET. PANEL anion gap 25 mmol/ L 10-20 high Not Available [facility] [address] [place], [address] 09/14/2023 20:54:11 09/14/19 24 09/14/2023 COMPR EHENS KENNY MET. PANEL blood urea nitrogen 13 mg/dL 6-20 normal Not Available [facility] [address] [place], [address] 09/14/2023 20:54:11 09/14/19 24 09/14/2023 COMPR EHENS KENNY MET. PANEL creatinine 0.83 mg/dL 0.70-1 .2 normal Not Available [facility] [address] [place], [address] 09/14/2023 20:54:11 09/14/19 24 09/14/2023 COMPR EHENS KENNY MET. PANEL estimated glomerular filt rate 128 GFR Value : mL/mi n/1.7 3 squar e meter s Calcu latio n: CKD-E PI Creat inine Equat ion (2020 ) Chron ic Kidne y Disea se is defin ed as eithe r of the follo wing prese nt for >= 3 month s: - GFR less than 60 mL/mi n/1.7 3 squar e meter s. - Micro album in:Ur . Creat inine Ratio >= 30 mg/g or other marke rs of kidjarod y damag e Kidne y failu re is less than 15 mL/mi n/1.7 3 squar e meter s This test is not perfo rmed in patie nts under the age of 18. Not Available [facility] [address] [place], [address] 09/14/2023 20:54:11 09/14/19 24 09/14/2023 COMPR EHENS KENNY MET. PANEL glucose 143 mg/dL 70-106 high Not Available [facility] [address] [place], [address] 09/14/2023 20:54:11 09/14/19 24 09/14/2023 COMPR EHENS KENNY MET. PANEL calcium 10.1 mg/dL 8.4-10 .3 normal Not Available [facility] [address] [place], [address] 09/14/2023 20:54:11 09/14/19 24 09/14/2023 COMPR EHENS KENNY MET. PANEL bilirubin total 0.5 mg/dL 0.2-1. 2 normal Not Available [facility] [address] [place], [address] 09/14/2023 20:54:11 09/14/19 24 09/14/2023 COMPR EHENS KENNY MET. PANEL aspartate amino transferase 14 U/L 5-40 normal Not Available [facility] Department [address] [place], [address] 09/14/2023 20:54:11 09/14/19 24 09/14/2023 COMPR EHENS KENNY MET. PANEL alanine aminotransfe rase 11 U/L 5-41 normal Not Available [facility] [address] [place], [address] 09/14/2023 20:54:11 09/14/19 24 09/14/2023 COMPR EHENS KENNY MET. PANEL total protein 7.7 g/dL 6.4-8. 3 normal Not Available [facility] [address] [place], [address] 09/14/2023 20:54:11 09/14/19 24 09/14/2023 COMPR EHENS KENNY MET. PANEL albumin level 4.6 g/dL 3.5-5. 2 normal Not Available [facility] [address] [place], [address] 09/14/2023 20:54:11 09/14/19 24 09/14/2023 COMPR EHENS KENNY MET. PANEL globulin 3.1 gm/dL 2.0-3. 5 normal Not Available [facility] [address] [place], [address] 09/14/2023 20:54:11 09/14/19 24 09/14/2023 COMPR EHENS KENNY MET. PANEL albumin globulin ratio 1.5 % 1.1-2. 5 normal Not Available [facility] [address] [place], [address] 09/14/2023 20:54:11 09/14/19 24 09/14/2023 COMPR EHENS KENNY MET. PANEL alkaline phosphatase 71 U/L 40-129 normal Not Available [facility] [address] [place], [address] 09/14/2023 20:54:11 09/14/19 24 09/14/2023 LIPAS E lipase 16 U/L 13-60 normal Not Available [facility] [address] [place], [address] 09/14/2023 20:54:12 09/15/19 24 09/15/2023 COMPR EHENS KENNY MET. PANEL sodium 139 mmol/ L 136-14 5 normal Not Available [facility] [address] [place], [address] 09/15/2023 07:20:32 09/15/19 24 09/15/2023 COMPR EHENS KENNY MET. PANEL potassium 3.58 mmol/ L 3.5-5. 1 normal Not Available [facility] [address] [place], [address] 09/15/2023 07:20:32 09/15/19 24 09/15/2023 COMPR EHENS KENNY MET. PANEL chloride 105 mmol/ L 98-107 normal Not Available [facility] [address] [place], [address] 09/15/2023 07:20:32 09/15/19 24 09/15/2023 COMPR EHENS KENNY MET. PANEL carbon dioxide 21 mmol/ L 22-29 low Not Available [facility] [address] [place], [address] 09/15/2023 07:20:32 09/15/19 24 09/15/2023 COMPR EHENS KENNY MET. PANEL anion gap 17 mmol/ L 10-20 normal Not Available [facility] [address] [place], [address] 09/15/2023 07:20:32 09/15/19 24 09/15/2023 COMPR EHENS KENNY MET. PANEL blood urea nitrogen 8 mg/dL 6-20 normal Not Available [facility] [address] [place], [address] 09/15/2023 07:20:32 09/15/19 24 09/15/2023 COMPR EHENS KENNY MET. PANEL creatinine 0.68 mg/dL 0.67-1 .17 normal Not Available [facility] [address] [place], [address] 09/15/2023 07:20:32 09/15/19 24 09/15/2023 COMPR EHENS KENNY MET. PANEL estimated glomerular filt rate 136 GFR Value : mL/mi n/1.7 3 squar e meter s Calcu latio n: CKD-E PI Creat inine Equat ion (2020 ) Chron ic Kidne y Disea se is defin ed as eithe r of the follo wing prese nt for >= 3 month s: - GFR less than 60 mL/mi n/1.7 3 squar e meter s. - Micro album in:Ur . Creat inine Ratio >= 30 mg/g or other marke rs of lyle irvinag e Kidne y failu re is less than 15 mL/mi n/1.7 3 squar e meter s This test is not perfo rmed in patie nts under the age of 18. Not Available [facility] [address] [place], [address] 09/15/2023 07:20:32 09/15/19 24 09/15/2023 COMPR EHENS KENNY MET. PANEL glucose 100 mg/dL 70-106 normal Not Available [facility] [address] [place], [address] 09/15/2023 07:20:32 09/15/19 24 09/15/2023 COMPR EHENS KENNY MET. PANEL calcium 9.1 mg/dL 8.6-10 .3 normal Not Available [facility] [address] [place], [address] 09/15/2023 07:20:32 09/15/19 24 09/15/2023 COMPR EHENS KENNY MET. PANEL bilirubin total 0.5 mg/dL 0.2-1. 2 normal Not Available [facility] [address] [place], [address] 09/15/2023 07:20:32 09/15/19 24 09/15/2023 COMPR EHENS KENNY MET. PANEL aspartate amino transferase 14 U/L 5-40 normal Not Available [facility] [address] [place], [address] 09/15/2023 07:20:32 09/15/19 24 09/15/2023 COMPR EHENS KENNY MET. PANEL alanine aminotransfe rase 9 U/L 5-41 normal Not Available [facility] [address] [place], [address] 09/15/2023 07:20:32 09/15/19 24 09/15/2023 COMPR EHENS KENNY MET. PANEL total protein 6.5 g/dL 6.4-8. 3 normal Not Available [facility] [address] [place] [address], 89796 09/15/2023 07:20:32 09/15/19 24 09/15/2023 COMPR EHENS KENNY MET. PANEL albumin level 4.1 g/dL 3.5-5. 2 normal Not Available [facility] [address] [place] [address], 28645 09/15/2023 07:20:32 09/15/19 24 09/15/2023 COMPR EHENS KENNY MET. PANEL globulin 2.4 gm/dL 2.0-3. 5 normal Not Available [facility] [address] [place] [address], 82873 09/15/2023 07:20:32 09/15/19 24 09/15/2023 COMPR EHENS KENNY MET. PANEL albumin globulin ratio 1.7 % 1.1-2. 5 normal Not Available [facility] [address] [place] [address], 88238 09/15/2023 07:20:32 09/15/19 24 09/15/2023 COMPR EHENS KENNY MET. PANEL alkaline phosphatase 64 U/L 40-129 normal Not Available [facility] [address] [place] [address], 56526 09/15/2023 07:20:32 09/15/19 24 09/15/2023 COMPL ETE BLOOD COUNT AUTO DIFF white blood count 12.32 K/uL 3.5-11 .0 high Not Available [facility] [address] [place] [address], 82230 09/15/2023 07:44:51 09/15/19 24 09/15/2023 COMPL ETE BLOOD COUNT AUTO DIFF red blood count 4.71 M/uL 3.90-5 .50 normal Not Available [facility] [address] [place] [address], 92480 09/15/2023 07:44:51 09/15/19 24 09/15/2023 COMPL ETE BLOOD COUNT AUTO DIFF hemoglobin 14.1 g/dL 14.0-1 8.0 normal Not Available [facility] [address] [place] [address], 53778 09/15/2023 07:44:51 09/15/19 24 09/15/2023 COMPL ETE BLOOD COUNT AUTO DIFF hematocrit 40.4 % 42.0-5 4.0 low Not Available [facility] [address] [place] [address], 64364 09/15/2023 07:44:51 09/15/19 24 09/15/2023 COMPL ETE BLOOD COUNT AUTO DIFF mean corpuscular volume 85.8 fL 80.0-1 00.0 normal Not Available [facility] [address] [place] [address], 85260 09/15/2023 07:44:51 09/15/19 24 09/15/2023 COMPL ETE BLOOD COUNT AUTO DIFF mean corpuscular hemoglobin 29.9 pg 25.4-3 4.6 normal Not Available [facility] [address] [place] [address], 78837 09/15/2023 07:44:51 09/15/19 24 09/15/2023 COMPL ETE BLOOD COUNT AUTO DIFF mean corpuscular HGB conc 34.9 g/dL 31.0-3 7.0 normal Not Available [facility] [address] [place] [address], 02025 09/15/2023 07:44:51 09/15/19 24 09/15/2023 COMPL ETE BLOOD COUNT AUTO DIFF red cell distribution width 13.2 % 11.5-1 4.5 normal Not Available [facility] [address] [place] [address], 60724 09/15/2023 07:44:51 09/15/19 24 09/15/2023 COMPL ETE BLOOD COUNT AUTO DIFF platelet count 296 K/uL 150-40 0 normal Not Available [facility] [address] [place] [address], 11436 09/15/2023 07:44:51 09/15/19 24 09/15/2023 COMPL ETE BLOOD COUNT AUTO DIFF neutrophils percent auto 80.5 % 35.0-6 6.0 high Not Available [facility] [address] [place] [address], 64955 09/15/2023 07:44:51 09/15/19 24 09/15/2023 COMPL ETE BLOOD COUNT AUTO DIFF imm gran pct auto 0.4 % 0.0-0. 6 normal Not Available [facility] [address] [place] [address], 69645 09/15/2023 07:44:51 09/15/19 24 09/15/2023 COMPL ETE BLOOD COUNT AUTO DIFF lymphocytes percent auto 11.0 % 25.0-4 5.0 low Not Available [facility] [address] [place] [address], 59540 09/15/2023 07:44:51 09/15/19 24 09/15/2023 COMPL ETE BLOOD COUNT AUTO DIFF monocytes percent auto 7.7 % 0.0-13 .0 normal Not Available [facility] [address] [place] [address], 08690 09/15/2023 07:44:51 09/15/19 24 09/15/2023 COMPL ETE BLOOD COUNT AUTO DIFF eosinophils percent auto 0.0 % 0.0-8. 0 normal Not Available [facility] [address] [place] [address], 72937 09/15/2023 07:44:51 09/15/19 24 09/15/2023 COMPL ETE BLOOD COUNT AUTO DIFF basophils percent auto 0.4 % 0.0-1. 0 normal Not Available [facility] [address] [place] [address], 31222 09/15/2023 07:44:51 09/15/19 24 09/15/2023 COMPL ETE BLOOD COUNT AUTO DIFF NRBC pct auto 0.0 /100_ WBC 0.0 normal Not Available [facility] [address] [place] [address], 04267 09/15/2023 07:44:51 09/15/19 24 09/15/2023 COMPL ETE BLOOD COUNT AUTO DIFF neutrophils absolute auto 9.91 K/uL 1.5-7. 5 high Not Available [facility] [address] [place] [address], 02452 09/15/2023 07:44:51 09/15/19 24 09/15/2023 COMPL ETE BLOOD COUNT AUTO DIFF imm gran abs auto 0.05 K/uL 0.00-0 .09 normal Not Available [facility] [address] [place] [address], 41538 09/15/2023 07:44:51 09/15/19 24 09/15/2023 COMPL ETE BLOOD COUNT AUTO DIFF lymphocytes absolute auto 1.36 K/uL 0.8-4. 8 normal Not Available [facility] [address] [place] [address], 64594 09/15/2023 07:44:51 09/15/19 24 09/15/2023 COMPL ETE BLOOD COUNT AUTO DIFF monocytes absolute auto 0.95 K/uL 0.4-1. 3 normal Not Available [facility] [address] [place] [address], 13902 09/15/2023 07:44:51 09/15/19 24 09/15/2023 COMPL ETE BLOOD COUNT AUTO DIFF eosinophils absolute auto 0.00 K/uL 0.0-0. 8 normal Not Available [facility] [address] [place] [address], 17544 09/15/2023 07:44:51 09/15/19 24 09/15/2023 COMPL ETE BLOOD COUNT AUTO DIFF basophils absolute auto 0.05 K/uL 0.0-0. 6 normal Not Available [facility] [address] [place] [address], 70215 09/15/2023 07:44:51 09/15/19 24 09/15/2023 COMPL ETE BLOOD COUNT AUTO DIFF NRBC abs auto 0.00 K/uL 0.00 normal Not Available [facility] Department [address] [place] [address], 07946 09/15/2023 07:44:51 10/30/19 24 10/30/2023 COMPL ETE BLOOD COUNT AUTO DIFF white blood count 10.46 K/uL 3.5-11 .0 normal Not Available [facility] [address] [place] [address], 40432 10/30/2023 12:14:34 10/30/19 24 10/30/2023 COMPL ETE BLOOD COUNT AUTO DIFF red blood count 5.21 M/uL 3.90-5 .50 normal Not Available [facility] [address] [place] [address], 10942 10/30/2023 12:14:34 10/30/19 24 10/30/2023 COMPL ETE BLOOD COUNT AUTO DIFF hemoglobin 15.3 g/dL 14.0-1 8.0 normal Not Available [facility] [address] [place] [address], 11077 10/30/2023 12:14:34 10/30/1910/30/2023 COMPL ETE BLOOD COUNT AUTO DIFF hematocrit 44.0 % 42.0-5 4.0 normal Not Available [facility] [address] [place] [address], 53731 10/30/2023 12:14:34 10/30/1910/30/2023 COMPL ETE BLOOD COUNT AUTO DIFF mean corpuscular volume 84.5 fL 80.0-1 00.0 normal Not Available [facility] [address] [place] [address], 93806 10/30/2023 12:14:34 10/30/1910/30/2023 COMPL ETE BLOOD COUNT AUTO DIFF mean corpuscular hemoglobin 29.4 pg 25.4-3 4.6 normal Not Available [facility] [address] [place] [address], 37651 10/30/2023 12:14:34 10/30/1910/30/2023 COMPL ETE BLOOD COUNT AUTO DIFF mean corpuscular HGB conc 34.8 g/dL 31.0-3 7.0 normal Not Available [facility] [address] [place] [address], 36628 10/30/2023 12:14:34 10/30/1910/30/2023 COMPL ETE BLOOD COUNT AUTO DIFF red cell distribution width 12.3 % 11.5-1 4.5 normal Not Available [facility] [address] [place] [address], 19988 10/30/2023 12:14:34 10/30/1910/30/2023 COMPL ETE BLOOD COUNT AUTO DIFF platelet count 304 K/uL 150-40 0 normal Not Available [facility] [address] [place] [address], 81929 10/30/2023 12:14:34 10/30/1910/30/2023 COMPL ETE BLOOD COUNT AUTO DIFF neutrophils percent auto 87.2 % 35.0-6 6.0 high Not Available [facility] [address] [place] [address], 03211 10/30/2023 12:14:34 10/30/1910/30/2023 COMPL ETE BLOOD COUNT AUTO DIFF imm gran pct auto 0.3 % 0.0-0. 6 normal Not Available [facility] [address] [place] [address], 07371 10/30/2023 12:14:34 10/30/1910/30/2023 COMPL ETE BLOOD COUNT AUTO DIFF lymphocytes percent auto 7.2 % 25.0-4 5.0 low Not Available [facility] [address] [place] [address], 83995 10/30/2023 12:14:34 10/30/1910/30/2023 COMPL ETE BLOOD COUNT AUTO DIFF monocytes percent auto 5.2 % 0.0-13 .0 normal Not Available [facility] [address] [place] [address], 13481 10/30/2023 12:14:34 10/30/1910/30/2023 COMPL ETE BLOOD COUNT AUTO DIFF eosinophils percent auto 0.0 % 0.0-8. 0 normal Not Available [facility] [address] [place] [address], 69648 10/30/2023 12:14:34 10/30/1910/30/2023 COMPL ETE BLOOD COUNT AUTO DIFF basophils percent auto 0.1 % 0.0-1. 0 normal Not Available [facility] [address] [place] [address], 29508 10/30/2023 12:14:34 10/30/1910/30/2023 COMPL ETE BLOOD COUNT AUTO DIFF NRBC pct auto 0.0 /100_ WBC 0.0 normal Not Available [facility] [address] [place] [address], 64208 10/30/2023 12:14:34 10/30/19 24 10/30/2023 COMPL ETE BLOOD COUNT AUTO DIFF neutrophils absolute auto 9.13 K/uL 1.5-7. 5 high Not Available [facility] [address] [place] [address], 14640 10/30/2023 12:14:34 10/30/19 24 10/30/2023 COMPL ETE BLOOD COUNT AUTO DIFF imm gran abs auto 0.03 K/uL 0.00-0 .09 normal Not Available [facility] [address] [place] [address], 67863 10/30/2023 12:14:34 10/30/19 24 10/30/2023 COMPL ETE BLOOD COUNT AUTO DIFF lymphocytes absolute auto 0.75 K/uL 0.8-4. 8 low Not Available [facility] [address] [place] [address], 59692 10/30/2023 12:14:34 10/30/19 24 10/30/2023 COMPL ETE BLOOD COUNT AUTO DIFF monocytes absolute auto 0.54 K/uL 0.4-1. 3 normal Not Available [facility] [address] [place] [address], 37323 10/30/2023 12:14:34 10/30/19 24 10/30/2023 COMPL ETE BLOOD COUNT AUTO DIFF eosinophils absolute auto 0.00 K/uL 0.0-0. 8 normal Not Available [facility] [address] [place] [address], 20754 10/30/2023 12:14:34 10/30/19 24 10/30/2023 COMPL ETE BLOOD COUNT AUTO DIFF basophils absolute auto 0.01 K/uL 0.0-0. 6 normal Not Available [facility] [address] [place] [address], 37735 10/30/2023 12:14:34 10/30/19 24 10/30/2023 COMPL ETE BLOOD COUNT AUTO DIFF NRBC abs auto 0.00 K/uL 0.00 normal Not Available [facility] Department [address] [place] [address], 03710 10/30/2023 12:14:34 10/30/19 24 10/30/2023 LACTA TE lactate 1.2 mmol/ L 0.5-2. 0 normal Not Available [facility] [address] [place], [address] 10/30/2023 12:19:19 10/30/19 24 10/30/2023 COMPR EHENS KENNY MET. PANEL sodium 137 mmol/ L 136-14 5 normal Not Available [facility] [address] [place] [address], 58617 10/30/2023 12:32:51 10/30/19 24 10/30/2023 COMPR EHENS KENNY MET. PANEL potassium 3.66 mmol/ L 3.5-5. 1 normal Sampl e hemol yzed. Inter pret resul t with cauti on. Not Available [facility] [address] [place] [address], 58677 10/30/2023 12:32:51 10/30/19 24 10/30/2023 COMPR EHENS KENNY MET. PANEL chloride 101 mmol/ L 98-107 normal Not Available [facility] [address] [place] [address], 47518 10/30/2023 12:32:51 10/30/19 24 10/30/2023 COMPR EHENS KENNY MET. PANEL carbon dioxide 20 mmol/ L 22-29 low Not Available [facility] [address] [place] [address], 38962 10/30/2023 12:32:51 10/30/19 24 10/30/2023 COMPR EHENS KENNY MET. PANEL anion gap 20 mmol/ L 10-20 normal Not Available [facility] Department [address] [place] [address], 77032 10/30/2023 12:32:51 10/30/19 24 10/30/2023 COMPR EHENS KENNY MET. PANEL blood urea nitrogen 12 mg/dL 6-20 normal Not Available [facility] Department [address] [place], [address] 10/30/2023 12:32:51 10/30/19 24 10/30/2023 COMPR EHENS KENNY MET. PANEL creatinine 0.75 mg/dL 0.67-1 .17 normal Not Available [facility] Department [address] [place] [address], 16052 10/30/2023 12:32:51 10/30/19 24 10/30/2023 COMPR EHENS KENNY MET. PANEL estimated glomerular filt rate 132 GFR Value : mL/mi n/1.7 3 squar e meter s Calcu latio n: CKD-E PI Creat inine Equat ion (2020 ) Chron ic Kidne y Disea se is defin ed as eithe r of the follo wing prese nt for >= 3 month s: - GFR less than 60 mL/mi n/1.7 3 squar e meter s. - Micro album in:Ur . Creat inine Ratio >= 30 mg/g or other marke rs of kidne y damag e Kidne y failu re is less than 15 mL/mi n/1.7 3 squar e meter s This test is not perfo rmed in patie nts under the age of 18. Not Available [facility] Department [address] [place], [address] 10/30/2023 12:32:51 10/30/1910/30/2023 COMPR EHENS KENNY MET. PANEL glucose 102 mg/dL 70-106 normal Not Available [facility] Department [address] [place] [address], 38543 10/30/2023 12:32:51 10/30/1910/30/2023 COMPR EHENS KENNY MET. PANEL calcium 10.1 mg/dL 8.6-10 .3 normal Not Available [facility] Department [address] [place], [address] 10/30/2023 12:32:51 10/30/1910/30/2023 COMPR EHENS KENNY MET. PANEL bilirubin total 1.0 mg/dL 0.2-1. 2 normal Not Available [facility] Department [address] [place], [address] 10/30/2023 12:32:51 10/30/1910/30/2023 COMPR EHENS KENNY MET. PANEL aspartate amino transferase TNP U/L 5-40 Sampl e unacc eptab le for testi ng due to hemol ysis. Pleas e re-or nabeel if clini yumiko indic ated. Not Available [facility] Department [address] [place], [address] 10/30/2023 12:32:51 10/30/19 24 10/30/2023 COMPR EHENS KENNY MET. PANEL alanine aminotransfe rase 5 U/L 5-41 normal Not Available [facility] Department [address] [place], [address] 10/30/2023 12:32:51 10/30/1910/30/2023 COMPR EHENS KENNY MET. PANEL total protein 8.2 g/dL 6.4-8. 3 normal Not Available [facility] Department [address] [place], [address] 10/30/2023 12:32:51 10/30/1910/30/2023 COMPR EHENS KENNY MET. PANEL albumin level 4.8 g/dL 3.5-5. 2 normal Not Available [facility] Department [address] [place], [address] 10/30/2023 12:32:51 10/30/19 24 10/30/2023 COMPR EHENS KENNY MET. PANEL globulin 3.4 gm/dL 2.0-3. 5 normal Not Available [facility] Department [address] [place], [address] 10/30/2023 12:32:51 10/30/19 24 10/30/2023 COMPR EHENS KENNY MET. PANEL albumin globulin ratio 1.4 % 1.1-2. 5 normal Not Available [facility] Department [address] [place], [address] 10/30/2023 12:32:51 10/30/19 24 10/30/2023 COMPR EHENS KENNY MET. PANEL alkaline phosphatase 65 U/L 40-129 normal Not Available [facility] Department [address] [place], [address] 10/30/2023 12:32:51 10/30/1910/30/2023 MAGNE SIUM magnesium 2.00 mg/dL 1.6-2. 6 normal Not Available [facility] [address] [place], [address] 10/30/2023 12:32:52 10/30/1910/30/2023 UA + MICRO (DO NOT ORDER ) color urine Yellow yellow Not Available [facility] [address] [place], [address] 10/30/2023 13:09:20 10/30/19 24 10/30/2023 UA + MICRO (DO NOT ORDER ) appearance urine Clear clear Not Available [facility] [address] [place], [address] 10/30/2023 13:09:20 10/30/19 24 10/30/2023 UA + MICRO (DO NOT ORDER ) specific gravity urine 1.015 1.001- 1.035 Not Available [facility] [address] [place], [address] 10/30/2023 13:09:20 10/30/19 24 10/30/2023 UA + MICRO (DO NOT ORDER ) glucose urine UA Negati ve negati ve Not Available [facility] [address] [place], [address] 10/30/2023 13:09:20 10/30/19 24 10/30/2023 UA + MICRO (DO NOT ORDER ) bilirubin urine Negati ve negati ve Not Available [facility] [address] [place], [address] 10/30/2023 13:09:20 10/30/19 24 10/30/2023 UA + MICRO (DO NOT ORDER ) ketones urine 2+ negati ve abnormal Not Available [facility] [address] [place], [address] 10/30/2023 13:09:20 10/30/19 24 10/30/2023 UA + MICRO (DO NOT ORDER ) urine hemoglobin Trace- intact negati ve abnormal Not Available [facility] [address] [place], [address] 10/30/2023 13:09:20 10/30/19 24 10/30/2023 UA + MICRO (DO NOT ORDER ) pH urine 7.0 5.0-8. 0 Not Available [facility] [address] [place], [address] 10/30/2023 13:09:20 10/30/19 24 10/30/2023 UA + MICRO (DO NOT ORDER ) protein urine Negati ve mg/dL negati ve Not Available [facility] [address] [place] [address], [address] 10/30/2023 13:09:20 10/30/19 24 10/30/2023 UA + MICRO (DO NOT ORDER ) urobilinogen urine 0.2 mg/dL 0.2-1. 0 Not Available [facility] [address] [place] [address], 67[address] 10/30/2023 13:09:20 10/30/19 24 10/30/2023 UA + MICRO (DO NOT ORDER ) nitrite urine Negati ve negati ve Not Available [facility] [address] [place] [address], 757[address] 10/30/2023 13:09:20 10/30/19 24 10/30/2023 UA + MICRO (DO NOT ORDER ) leukocyte esterase urine Negati ve negati ve Not Available [facility] [address] [place] [address], 797[address] 10/30/2023 13:09:20 10/30/19 24 10/30/2023 UA + MICRO (DO NOT ORDER ) RBC urine Rare 0-3/hp f Not Available [facility] [address] [place] [address], [id number] 10/30/2023 13:09:20 10/30/19 24 10/30/2023 UA + MICRO (DO NOT ORDER ) WBC urine Rare 0-2/hp f Not Available [facility] [address] [place] [address], [id number] 10/30/2023 13:09:20 10/30/19 24 10/30/2023 UA + MICRO (DO NOT ORDER ) bacteria urine Rare none seen Not Available [facility] [address] [place] [address], [id number] 10/30/2023 13:09:20 10/30/19 24 10/30/2023 UA + MICRO (DO NOT ORDER ) mucus urine Rare few/hp f Not Available [facility] [address] [place] [address], 44[address] 10/30/2023 13:09:20 10/30/19 24 10/30/2023 LIPAS E lipase 38 U/L 13-60 normal Not Available [facility] [address] [place] [address], 47[address] 10/30/2023 13:00:12 10/30/19 24 10/30/2023 COMPL ETE BLOOD COUNT AUTO DIFF white blood count 7.92 K/uL 3.5-11 .0 normal Not Available [facility] [address] [place] [address], 75[address] 10/30/2023 21:25:58 09/0410/30/2023 COMPL ETE BLOOD COUNT AUTO DIFF red blood count 4.98 M/uL 3.90-5 .50 normal Not Available [facility] [address] [place] [address], 67183 10/30/2023 21:25:58 10/30/19 24 10/30/2023 COMPL ETE BLOOD COUNT AUTO DIFF hemoglobin 15.0 g/dL 14.0-1 8.0 normal Not Available [facility] [address] [place] [address], 225[address] 10/30/2023 21:25:58 10/30/1910/30/2023 COMPL ETE BLOOD COUNT AUTO DIFF hematocrit 41.9 % 42.0-5 4.0 low Not Available [facility] [address] [place] [address], 75093 10/30/2023 21:25:58 10/30/1910/30/2023 COMPL ETE BLOOD COUNT AUTO DIFF mean corpuscular volume 84.1 fL 80.0-1 00.0 normal Not Available [facility] [address] [place] [address], 43386 10/30/2023 21:25:58 10/30/19 24 10/30/2023 COMPL ETE BLOOD COUNT AUTO DIFF mean corpuscular hemoglobin 30.1 pg 25.4-3 4.6 normal Not Available [facility] [address] [place] [address], [id number] 10/30/2023 21:25:58 10/30/19 24 10/30/2023 COMPL ETE BLOOD COUNT AUTO DIFF mean corpuscular HGB conc 35.8 g/dL 31.0-3 7.0 normal Not Available [facility] [address] [place] [address], 17734 10/30/2023 21:25:58 10/30/1910/30/2023 COMPL ETE BLOOD COUNT AUTO DIFF red cell distribution width 12.9 % 11.5-1 4.5 normal Not Available [facility] [address] [place] [address], 72674 10/30/2023 21:25:58 10/30/19 24 10/30/2023 COMPL ETE BLOOD COUNT AUTO DIFF platelet count 299 K/uL 150-40 0 normal Not Available [facility] [address] [place], [address] 10/30/2023 21:25:58 10/30/19 24 10/30/2023 COMPL ETE BLOOD COUNT AUTO DIFF neutrophils percent auto 74.7 % 35.0-6 6.0 high Not Available [facility] [address] [place] [address], 56[address] 10/30/2023 21:25:58 10/30/19 24 10/30/2023 COMPL ETE BLOOD COUNT AUTO DIFF lymphocytes percent auto 16.2 % 25.0-4 5.0 low Not Available [facility] [address] [place] [address], 37[address] 10/30/2023 21:25:58 10/30/19 24 10/30/2023 COMPL ETE BLOOD COUNT AUTO DIFF monocytes percent auto 9.0 % 0.0-13 .0 normal Not Available [facility] [address] [place] [address], 23[address] 10/30/2023 21:25:58 10/30/1910/30/2023 COMPL ETE BLOOD COUNT AUTO DIFF eosinophils percent auto 0.0 % 0.0-8. 0 normal Not Available [facility] [address] [place] [address], 22[address] 10/30/2023 21:25:58 10/30/19 24 10/30/2023 COMPL ETE BLOOD COUNT AUTO DIFF basophils percent auto 0.1 % 0.0-1. 0 normal Not Available [facility] [address] [place] [address], 19664 10/30/2023 21:25:58 10/30/19 24 10/30/2023 COMPL ETE BLOOD COUNT AUTO DIFF neutrophils absolute auto 5.92 K/uL 1.5-7. 5 normal Not Available [facility] [address] [place] [address], 32[address] 10/30/2023 21:25:58 10/30/19 24 10/30/2023 COMPL ETE BLOOD COUNT AUTO DIFF lymphocytes absolute auto 1.28 K/uL 0.8-4. 8 normal Not Available [facility] [address] [place] [address], 423[address] 10/30/2023 21:25:58 10/30/19 24 10/30/2023 COMPL ETE BLOOD COUNT AUTO DIFF monocytes absolute auto 0.71 K/uL 0.4-1. 3 normal Not Available [facility] [address] [place], [address] 10/30/2023 21:25:58 10/30/1910/30/2023 COMPL ETE BLOOD COUNT AUTO DIFF eosinophils absolute auto 0.00 K/uL 0.0-0. 8 normal Not Available [facility] [address] [place], [address] 10/30/2023 21:25:58 10/30/19 24 10/30/2023 COMPL ETE BLOOD COUNT AUTO DIFF basophils absolute auto 0.01 K/uL 0.0-0. 6 normal Not Available [facility] [address] [place], [address] 10/30/2023 21:25:58 10/30/1910/30/2023 UA AND RFLX MICRO SCOPI C color urine Yellow yellow Not Available [facility] [address] [place], [address] 10/30/2023 21:49:46 10/30/19 24 10/30/2023 UA AND RFLX MICRO SCOPI C appearance urine Clear clear Not Available [facility] [address] [place], [address] 10/30/2023 21:49:46 10/30/1910/30/2023 UA AND RFLX MICRO SCOPI C specific gravity urine <=1.00 5 1.001- 1.035 Not Available [facility] [address] [place], [address] 10/30/2023 21:49:46 10/30/19 24 10/30/2023 UA AND RFLX MICRO SCOPI C glucose urine UA Negati ve negati ve Not Available [facility] [address] [place], [address] 10/30/2023 21:49:46 10/30/19 24 10/30/2023 UA AND RFLX MICRO SCOPI C bilirubin urine Negati ve negati ve Not Available [facility] [address] [place], [address] 10/30/2023 21:49:46 10/30/19 24 10/30/2023 UA AND RFLX MICRO SCOPI C ketones urine 2+ negati ve abnormal Not Available [facility] [address] [place], [address] 10/30/2023 21:49:46 10/30/19 24 10/30/2023 UA AND RFLX MICRO SCOPI C urine hemoglobin Negati ve negati ve Not Available [facility] [address] [place] [address], 14[address] 10/30/2023 21:49:46 10/30/19 24 10/30/2023 UA AND RFLX MICRO SCOPI C pH urine 7.0 5.0-8. 0 Not Available [facility] [address] [place] [address], [address]46[address] 10/30/2023 21:49:46 10/30/19 24 10/30/2023 UA AND RFLX MICRO SCOPI C protein urine Negati ve mg/dL negati ve Not Available [facility] [address] [place] [address], 26818 10/30/2023 21:49:46 10/30/19 24 10/30/2023 UA AND RFLX MICRO SCOPI C urobilinogen urine 0.2 mg/dL 0.2-1. 0 Not Available [facility] [address] [place] [address], 65595 10/30/2023 21:49:46 10/30/19 24 10/30/2023 UA AND RFLX MICRO SCOPI C nitrite urine Negati ve negati ve Not Available [facility] [address] [place] [address], 48897 10/30/2023 21:49:46 10/30/19 24 10/30/2023 UA AND RFLX MICRO SCOPI C leukocyte esterase urine Negati ve negati ve Not Available [facility] [address] [place] [address], 34185 10/30/2023 21:49:46 10/30/19 24 10/30/2023 COMPR EHENS KENNY MET. PANEL sodium 138 mmol/ L 136-14 5 normal Not Available [facility] [address] [place] [address], 57877 10/30/2023 21:56:52 10/30/19 24 10/30/2023 COMPR EHENS KENNY MET. PANEL potassium 3.5 mmol/ L 3.5-5. 1 normal Not Available [facility] [address] [place] [address], 34356 10/30/2023 21:56:52 10/30/19 24 10/30/2023 COMPR EHENS KENNY MET. PANEL chloride 101 mmol/ L 98-107 normal Not Available [facility] [address] [place], [address] 10/30/2023 21:56:52 10/30/19 24 10/30/2023 COMPR EHENS KENNY MET. PANEL carbon dioxide 20.8 mmol/ L 22-29 low Not Available [facility] [address] [place], [address] 10/30/2023 21:56:52 10/30/19 24 10/30/2023 COMPR EHENS KENNY MET. PANEL anion gap 19 mmol/ L 10-20 normal Not Available [facility] [address] [place], [address] 10/30/2023 21:56:52 10/30/19 24 10/30/2023 COMPR EHENS KENNY MET. PANEL blood urea nitrogen 11 mg/dL 6-20 normal Not Available [facility] [address] [place], [address] 10/30/2023 21:56:52 10/30/19 24 10/30/2023 COMPR EHENS KENNY MET. PANEL creatinine 0.87 mg/dL 0.70-1 .2 normal Not Available [facility] [address] [place], [address] 10/30/2023 21:56:52 10/30/19 24 10/30/2023 COMPR EHENS KENNY MET. PANEL estimated glomerular filt rate 126 GFR Value : mL/mi n/1.7 3 squar e meter s Calcu latio n: CKD-E PI Creat inine Equat ion (2020 ) Chron ic Kidne y Disea se is defin ed as eithe r of the follo wing prese nt for >= 3 month s: - GFR less than 60 mL/mi n/1.7 3 squar e meter s. - Micro album in:Ur . Creat inine Ratio >= 30 mg/g or other marke rs of kidne y damag e Kidne y failu re is less than 15 mL/mi n/1.7 3 squar e meter s This test is not perfo rmed in patie nts under the age of 18. Not Available [facility] [address] [place], [address] 10/30/2023 21:56:52 10/30/1910/30/2023 COMPR EHENS KENNY MET. PANEL glucose 104 mg/dL 70-106 normal Not Available [facility] [address] [place], [address] 10/30/2023 21:56:52 10/30/1910/30/2023 COMPR EHENS KENNY MET. PANEL calcium 9.9 mg/dL 8.4-10 .3 normal Not Available [facility] [address] [place], [address] 10/30/2023 21:56:52 10/30/1910/30/2023 COMPR EHENS KENNY MET. PANEL bilirubin total 0.9 mg/dL 0.2-1. 2 normal Not Available [facility] [address] [place], [address] 10/30/2023 21:56:52 10/30/19 24 10/30/2023 COMPR EHENS KENNY MET. PANEL aspartate amino transferase 13 U/L 5-40 normal Not Available [facility] [address] [place], [address] 10/30/2023 21:56:52 10/30/1910/30/2023 COMPR EHENS KENNY MET. PANEL alanine aminotransfe rase 7 U/L 5-41 normal Not Available [facility] [address] [place], [address] 10/30/2023 21:56:52 10/30/1910/30/2023 COMPR EHENS KENNY MET. PANEL total protein 7.5 g/dL 6.4-8. 3 normal Not Available [facility] [address] [place], [address] 10/30/2023 21:56:52 10/30/19 24 10/30/2023 COMPR EHENS KENNY MET. PANEL albumin level 4.7 g/dL 3.5-5. 2 normal Not Available [facility] [address] [place], [address] 10/30/2023 21:56:52 10/30/1910/30/2023 COMPR EHENS KENNY MET. PANEL globulin 2.8 gm/dL 2.0-3. 5 normal Not Available [facility] [address] [place] [address], 80162 10/30/2023 21:56:52 10/30/19 24 10/30/2023 COMPR EHENS KENNY MET. PANEL albumin globulin ratio 1.7 % 1.1-2. 5 normal Not Available [facility] [address] [place] [address], 51183 10/30/2023 21:56:52 10/30/1910/30/2023 COMPR EHENS KENNY MET. PANEL alkaline phosphatase 59 U/L 40-129 normal Not Available [facility] [address] [place] [address], 39571 10/30/2023 21:56:52 10/30/1910/30/2023 LIPAS E lipase 61 U/L 13-60 high Not Available [facility] [address] [place] [address], 73855 10/30/2023 21:56:53 01/24/20 24 01/24/2024 COMPL ETE BLOOD COUNT AUTO DIFF white blood count 20.13 K/uL 3.5-11 .0 high Not Available [facility] [address] [place] [address], 37272 01/24/2024 08:53:26 01/24/20 24 01/24/2024 COMPL ETE BLOOD COUNT AUTO DIFF red blood count 5.36 M/uL 3.90-5 .50 normal Not Available [facility] [address] [place] [address], 39325 01/24/2024 08:53:26 01/24/2001/24/2024 COMPL ETE BLOOD COUNT AUTO DIFF hemoglobin 15.9 g/dL 14.0-1 8.0 normal Not Available [facility] [address] [place] [address], 09061 01/24/2024 08:53:26 01/24/20 24 01/24/2024 COMPL ETE BLOOD COUNT AUTO DIFF hematocrit 46.1 % 42.0-5 4.0 normal Not Available [facility] [address] [place] [address], 03566 01/24/2024 08:53:26 01/24/20 24 01/24/2024 COMPL ETE BLOOD COUNT AUTO DIFF mean corpuscular volume 86.0 fL 80.0-1 00.0 normal Not Available [facility] [address] [place] [address], 49562 01/24/2024 08:53:26 01/24/20 24 01/24/2024 COMPL ETE BLOOD COUNT AUTO DIFF mean corpuscular hemoglobin 29.7 pg 25.4-3 4.6 normal Not Available [facility] [address] [place] [address], 90908 01/24/2024 08:53:26 01/24/20 24 01/24/2024 COMPL ETE BLOOD COUNT AUTO DIFF mean corpuscular HGB conc 34.5 g/dL 31.0-3 7.0 normal Not Available [facility] [address] [place] [address], 70310 01/24/2024 08:53:26 01/24/20 24 01/24/2024 COMPL ETE BLOOD COUNT AUTO DIFF red cell distribution width 13.4 % 11.5-1 4.5 normal Not Available [facility] [address] [place] [address], 07815 01/24/2024 08:53:26 01/24/20 24 01/24/2024 COMPL ETE BLOOD COUNT AUTO DIFF platelet count 364 K/uL 150-40 0 normal Not Available [facility] [address] [place] [address], 08808 01/24/2024 08:53:26 01/24/20 24 01/24/2024 COMPL ETE BLOOD COUNT AUTO DIFF neutrophils percent auto 91.0 % 35.0-6 6.0 high Not Available [facility] [address] [place] [address], 85042 01/24/2024 08:53:26 01/24/20 24 01/24/2024 COMPL ETE BLOOD COUNT AUTO DIFF lymphocytes percent auto 6.2 % 25.0-4 5.0 low Not Available [facility] [address] [place] [address], 68810 01/24/2024 08:53:26 01/24/20 24 01/24/2024 COMPL ETE BLOOD COUNT AUTO DIFF monocytes percent auto 2.7 % 0.0-13 .0 normal Not Available [facility] [address] [place], [address] 01/24/2024 08:53:26 01/24/20 24 01/24/2024 COMPL ETE BLOOD COUNT AUTO DIFF eosinophils percent auto 0.0 % 0.0-8. 0 normal Not Available [facility] [address] [place], [address] 01/24/2024 08:53:26 01/24/20 24 01/24/2024 COMPL ETE BLOOD COUNT AUTO DIFF basophils percent auto 0.1 % 0.0-1. 0 normal Not Available [facility] [address] [place] [address], 25391 01/24/2024 08:53:26 01/24/20 24 01/24/2024 COMPL ETE BLOOD COUNT AUTO DIFF neutrophils absolute auto 18.32 K/uL 1.5-7. 5 high Not Available [facility] [address] [place] [address], 58760 01/24/2024 08:53:26 01/24/20 24 01/24/2024 COMPL ETE BLOOD COUNT AUTO DIFF lymphocytes absolute auto 1.24 K/uL 0.8-4. 8 normal Not Available [facility] [address] [place] [address], 59666 01/24/2024 08:53:26 01/24/20 24 01/24/2024 COMPL ETE BLOOD COUNT AUTO DIFF monocytes absolute auto 0.54 K/uL 0.4-1. 3 normal Not Available [facility] [address] [place] [address], 41300 01/24/2024 08:53:26 01/24/20 24 01/24/2024 COMPL ETE BLOOD COUNT AUTO DIFF eosinophils absolute auto 0.01 K/uL 0.0-0. 8 normal Not Available [facility] [address] [place] [address], 39335 01/24/2024 08:53:26 01/24/20 24 01/24/2024 COMPL ETE BLOOD COUNT AUTO DIFF basophils absolute auto 0.02 K/uL 0.0-0. 6 normal Not Available [facility] [address] [place] [address], 52566 01/24/2024 08:53:26 01/24/20 24 01/24/2024 LIPAS E lipase 14 U/L 13-60 normal Not Available [facility] [address] [place], [address] 01/24/2024 10:00:30 01/24/20 24 01/24/2024 COMPR EHENS KENNY MET. PANEL sodium 141 mmol/ L 136-14 5 normal Not Available [facility] [address] [place] [address], 82891 01/24/2024 10:01:01 01/24/20 24 01/24/2024 COMPR EHENS KENNY MET. PANEL potassium 3.2 mmol/ L 3.5-5. 1 low Not Available [facility] [address] [place] [address], 34533 01/24/2024 10:01:01 01/24/20 24 01/24/2024 COMPR EHENS KENNY MET. PANEL chloride 101 mmol/ L 98-107 normal Not Available [facility] [address] [place] [address], 80650 01/24/2024 10:01:01 01/24/20 24 01/24/2024 COMPR EHENS KENNY MET. PANEL carbon dioxide 18.2 mmol/ L -29 low Not Available [facility] [address] [place] [address], 48737 01/24/2024 10:01:01 01/24/20 24 01/24/2024 COMPR EHENS KENNY MET. PANEL anion gap 25 mmol/ L 10-20 high Not Available [facility] [address] [place] [address], 64939 01/24/2024 10:01:01 01/24/20 24 01/24/2024 COMPR EHENS KENNY MET. PANEL blood urea nitrogen 16 mg/dL 6-20 normal Not Available [facility] [address] [place], [address] 01/24/2024 10:01:01 01/24/20 24 01/24/2024 COMPR EHENS KENNY MET. PANEL creatinine 0.84 mg/dL 0.70-1 .2 normal Not Available [facility] [address] [place] [address], 86331 01/24/2024 10:01:01 01/24/20 24 01/24/2024 COMPR EHENS KENNY MET. PANEL estimated glomerular filt rate 127 GFR Value : mL/mi n/1.7 3 squar e meter s Calcu latio n: CKD-E PI Creat inine Equat ion (2020 ) Chron ic Kidne y Disea se is defin ed as eithe r of the follo wing prese nt for >= 3 month s: - GFR less than 60 mL/mi n/1.7 3 squar e meter s. - Micro album in:Ur . Creat inine Ratio >= 30 mg/g or other marke rs of kidne y damag e Kidne y failu re is less than 15 mL/mi n/1.7 3 squar e meter s This test is not perfo rmed in patie nts under the age of 18. Not Available [facility] [address] [place] [address], 21481 01/24/2024 10:01:01 01/24/20 24 01/24/2024 COMPR EHENS KENNY MET. PANEL glucose 127 mg/dL 70-106 high Not Available [facility] [address] [place] [address], 78709 01/24/2024 10:01:01 01/24/20 24 01/24/2024 COMPR EHENS KENNY MET. PANEL calcium 10.3 mg/dL 8.4-10 .3 normal Not Available [facility] [address] [place] [address], 05429 01/24/2024 10:01:01 01/24/20 24 01/24/2024 COMPR EHENS KENNY MET. PANEL bilirubin total 0.6 mg/dL 0.2-1. 2 normal Not Available [facility] [address] [place] [address], 21253 01/24/2024 10:01:01 01/24/20 24 01/24/2024 COMPR EHENS KENNY MET. PANEL aspartate amino transferase 23 U/L 5-40 normal Not Available [facility] Department [address] [place] [address], 35315 01/24/2024 10:01:01 01/24/20 24 01/24/2024 COMPR EHENS KENNY MET. PANEL alanine aminotransfe rase 18 U/L 5-41 normal Not Available [facility] [address] [place] [address], 76701 01/24/2024 10:01:01 01/24/20 24 01/24/2024 COMPR EHENS KENNY MET. PANEL total protein 8.3 g/dL 6.4-8. 3 normal Not Available [facility] [address] [place], [address] 01/24/2024 10:01:01 01/24/20 24 01/24/2024 COMPR EHENS KENNY MET. PANEL albumin level 5.0 g/dL 3.5-5. 2 normal Not Available [facility] [address] [place], [address] 01/24/2024 10:01:01 01/24/20 24 01/24/2024 COMPR EHENS KENNY MET. PANEL globulin 3.3 gm/dL 2.0-3. 5 normal Not Available [facility] [address] [place] [address], 65502 01/24/2024 10:01:01 01/24/20 24 01/24/2024 COMPR EHENS KENNY MET. PANEL albumin globulin ratio 1.5 % 1.1-2. 5 normal Not Available [facility] [address] [place], [address] 01/24/2024 10:01:01 01/24/20 24 01/24/2024 COMPR EHENS KENNY MET. PANEL alkaline phosphatase 79 U/L 40-129 normal Not Available [facility] Department [address] [place], [address] 01/24/2024 10:01:01 01/24/20 24 01/24/2024 SOLANGE OL ethanol < 10 mg/dL This resul t is below the linea rity of the instr ument and shoul d be consi dered indis tingu ishab le from zero. REFER ENCE RANGE : NONE DETEC SIN No refer ence range is avail able for deter minat ion of clini se intox icati on. Not Available [facility] [address] [place] [address], 22721 01/24/2024 10:01:02 01/24/20 24 01/24/2024 UA + MICRO (DO NOT ORDER ) color urine Yellow yellow Not Available [facility] [address] [place], [address] 01/24/2024 10:25:25 01/24/20 24 01/24/2024 UA + MICRO (DO NOT ORDER ) appearance urine Clear clear Not Available [facility] [address] [place], [address] 01/24/2024 10:25:25 01/24/20 24 01/24/2024 UA + MICRO (DO NOT ORDER ) specific gravity urine >=1.03 0 1.001- 1.035 abnormal Not Available [facility] [address] [place] [address], 94998 01/24/2024 10:25:25 01/24/20 24 01/24/2024 UA + MICRO (DO NOT ORDER ) glucose urine UA Negati ve negati ve Not Available [facility] [address] [place] [address], 11212 01/24/2024 10:25:25 01/24/20 24 01/24/2024 UA + MICRO (DO NOT ORDER ) bilirubin urine Negati ve negati ve Not Available [facility] [address] [place] [address], 68941 01/24/2024 10:25:25 01/24/20 24 01/24/2024 UA + MICRO (DO NOT ORDER ) ketones urine 4+ negati ve abnormal Not Available [facility] [address] [place] [address], [address] 01/24/2024 10:25:25 01/24/20 24 01/24/2024 UA + MICRO (DO NOT ORDER ) urine hemoglobin Trace- intact negati ve abnormal Not Available [facility] [address] [place] [address], [address] 01/24/2024 10:25:25 01/24/20 24 01/24/2024 UA + MICRO (DO NOT ORDER ) pH urine 5.5 5.0-8. 0 Not Available [facility] [address] [place] [address], [address] 01/24/2024 10:25:25 01/24/20 24 01/24/2024 UA + MICRO (DO NOT ORDER ) protein urine 1+ mg/dL negati ve abnormal Not Available [facility] [address] [place] [address], [address] 01/24/2024 10:25:25 01/24/20 24 01/24/2024 UA + MICRO (DO NOT ORDER ) urobilinogen urine 0.2 mg/dL 0.2-1. 0 Not Available [facility] [address] [place], [address] 01/24/2024 10:25:25 01/24/20 24 01/24/2024 UA + MICRO (DO NOT ORDER ) nitrite urine Negati ve negati ve Not Available [facility] [address] [place], [address] 01/24/2024 10:25:25 01/24/20 24 01/24/2024 UA + MICRO (DO NOT ORDER ) leukocyte esterase urine Negati ve negati ve Not Available [facility] [address] [place], [address] 01/24/2024 10:25:25 01/24/20 24 01/24/2024 UA + MICRO (DO NOT ORDER ) RBC urine 0-2 0-3/hp f Not Available [facility] [address] [place], [address] 01/24/2024 10:25:25 01/24/20 24 01/24/2024 UA + MICRO (DO NOT ORDER ) WBC urine 0-4 0-2/hp f Not Available [facility] [address] [place], [address] 01/24/2024 10:25:25 01/24/20 24 01/24/2024 UA + MICRO (DO NOT ORDER ) squamous epithelial cell urine Rare few/hp f Not Available [facility] [address] [place], [address] 01/24/2024 10:25:25 01/24/20 24 01/24/2024 UA + MICRO (DO NOT ORDER ) bacteria urine Rare none seen Not Available [facility] [address] [place], [address] 01/24/2024 10:25:25 01/24/20 24 01/24/2024 UA + MICRO (DO NOT ORDER ) hyaline casts urine Few 0-1/lp f Not Available [facility] [address] [place], [address] 01/24/2024 10:25:25 01/24/20 24 01/24/2024 UA + MICRO (DO NOT ORDER ) mucus urine 2+ few/hp f Not Available [facility] [address] [facility], [place], [address] 01/24/2024 10:25:25 10/18/19 22 10/17/2021 CT, abdom en + pelvi s, w/ contr ast [facility] [address] [facility] [place] [address] CT Scan Report Signed Patien t: Claudia Palma MR#: [id number] 0619 : 2000 Acct:A [id number] Age/Se x: 21 / M ADM Date: Loc: HE.AER Attend ing Dr: Hannah shearer Physic marino: Bret Guillory Date of Servic e: Proced ure(s) : CT abdome n pelvis w con Access ion Number (s): [id number] H cc: Sakina Lucas PROCED URE INFORM ATION: Exam: CT Abdome n And Pelvis With Contra st Exam date and time: 022 10:23 PM Age: 21 years old Clinic al indica tion: Abdomi nal pain; Locali zed; Left lower quadra nt (llq); Additi onal info: Lower abd pain, nausea TECHNI QUE: Imagin g protoc ol: Comput ed tomogr aphy of the abdome n and pelvis with contra st. Radiat ion optimi zation : All CT scans at this facili ty use at least one of these dose optimi zation techni ques: automa sin exposu re contro l; mA and/or kV adjust ment per patien t size (inclu luzmaria target ed exams where dose is matche d to clinic al indica tion); or iterat kenny recons tructi on. Contra st materi al: OMNIPA QUE 350; Contra st volume : 75 ml; Contra st route: INTRAV ENOUS (IV); COMPAR DEVON: SC ABDOME N 020 10:38 AM FINDIN GS: Liver: Normal . No mass. Gallbl adder and bile ducts: Normal . No calcif ied stones . No ductal dilati on. Pancre as: Normal . No ductal dilati on. Spleen : Normal . No spleno megaly . Adrena l glands : Normal . No mass. Kidney s and ureter s: Normal . No hydron ephros is. Stomac h and bowel: Unrema rkable . No obstru ction. No mucosa l thicke rebekah. Append ix: The append ix is visual ized and appear s normal . Intrap eriton eal space: Unrema rkable . No free air. No signif icant fluid collec tion. Vascul ature: Unrema rkable . No abdomi nal aortic aneury sm. Lymph nodes: Unrema rkable . No enlarg ed lymph nodes. Urinar y bladde r: Unrema rkable as visual ized. Reprod uctive : Unrema rkable as visual ized. Bones/ joints : Unrema rkable . No acute fractu re. Soft tissue s: Unrema rkable . IMPRES DANNY: There are no acute concer rebekah abnorm alitie s. Electr onical ly Signed By: Gregg Mcneil MD On 2021 23:18: 27 Dictat ed By: Gregg Mcneil Signed By: 2317 DD/DT: 2222 TD/TT: Transc riptio nist: [email or web address] [facility] [address] [place], [address], 10/18/2021 14:00:37 10/19/1910/17/2021 CT, abdom en + pelvi s, w/ contr ast [facility] [address] [facility] [address] CT Scan Report Signed with Addend violeta Ochoa t: Zaheer du,Claudia Odonnell MR#: [id number] 0619 : 2000 Acct:A [id number] Age/Se x: 21 / M ADM Date: Loc: HE.AER Attend ing Dr: Hannah shearer Physic marino: Bret Guillory Date of Servic e: Proced ure(s) : CT abdome n pelvis w con Access ion Number (s): [id number] H cc: Sakina Lucas ADDE NDUM 022 ADDEND UM: Multip le loops of normal calibe r fluid- filled small bowel, nonspe cific findin g, within range of normal but which may occasi onally be associ ated with enteri tis. I have review ed the images and agree with the findin gs and con danny.] Chidi larson MD/sat 11:28 a.m. Addend um Dictat ed By: Chidi larson Addend um Signed By: 1202 Addend um Cosign ed By: DD/DT: 8 TD/TT: 8 PROCED URE INFORM ATION: Exam: CT Abdome n And Pelvis With Contra st Exam date and time: 10:23 PM Age: 21 years old Clinic al indica tion: Abdomi nal pain; Locali zed; Left lower quadra nt (llq); Additi onal info: Lower abd pain, nausea TECHNI QUE: Imagin g protoc ol: Comput ed tomogr aphy of the abdome n and pelvis with contra st. Radiat ion optimi zation : All CT scans at this facili ty use at least one of these dose optimi zation techni ques: automa sin exposu re contro l; mA and/or kV adjust ment per patien t size (inclu luzmaria target ed exams where dose is matche d to clinic al indica tion); or iterat kenny recons tructi on. Contra st materi al: OMNIPA QUE 350; Contra st volume : 75 ml; Contra st route: INTRAV ENOUS (IV); COMPAR DEVON: SC ABDOME N 020 10:38 AM FINDIN GS: Liver: Normal . No mass. Gallbl adder and bile ducts: Normal . No calcif ied stones . No ductal dilati on. Pancre as: Normal . No ductal dilati on. Spleen : Normal . No spleno megaly . Adrena l glands : Normal . No mass. Kidney s and ureter s: Normal . No hydron ephros is. Stomac h and bowel: Unrema rkable . No obstru ction. No mucosa l thicke rebekah. Append ix: The append ix is visual ized and appear s normal . Intrap eriton eal space: Unrema rkable . No free air. No signif icant fluid collec tion. Vascul ature: Unrema rkable . No abdomi nal aortic aneury sm. Lymph nodes: Unrema rkable . No enlarg ed lymph nodes. Urinar y bladde r: Unrema rkable as visual ized. Reprod uctive : Unrema rkable as visual ized. Bones/ joints : Unrema rkable . No acute fractu re. Soft tissue s: Unrema rkable . IMPRES DANNY: There are no acute concer rebekah abnorm alitie s. Electr onical ly Signed By: Gregg Mcneil MD On 2021 23:18: 27 Dictat ed By: Gregg Mcneil Signed By: 2317 DD/DT: 2222 TD/TT: Transc riptio nist: [email or web address] [facility] [address] [place], [address], 10/18/2021 14:00:40 01/12/20 22 01/16/2022 elect alec mark am No observ ation record ed. [email or web address] [facility] [address] , [place], [address], 01/16/2022 15:31:44 01/12/20 22 01/11/2022 elect alec mark am No observ ation record ed. BARCODE [facility] [address] , [place], [address], 01/11/2022 10:38:29 02/14/20 halie r monit or No observ ation record ed. [facility] ([facility]) [address] [facility], [place], [address], 02/13/2022 11:48:02 02/21/20 22 02/20/2022 XR, knee, 3 view [facility] [address] [facility] [place] [address] XRay Report Signed Patien t: Fortinorekha florian,Claudia Odonnell MR#: [id number] 0619 : 2000 Acct:A [id number] Age/Se x: 21 / M ADM Date: Loc: HE.AER Attend ing Dr: Hannah shearer Physic marino: Rc Lovelace id Date of Servic e: Proced ure(s) : XR knee LT 3V Access ion Number (s): [id number] H cc: Sakina Lucas EXAM: XR knee LT 3V CLINIC AL INDICA TION: pain disloc ation FINDIN GS: There is no fractu re, disloc ation, pathol ogic lesion , or soft tissue abnorm ality. Minera lizati on is good. Alignm ent is normal . No arthri tis. Electr onical ly Signed in [place] By Kiara casanova MD 058 XR/XR knee LT 3V IMPRES DANNY: Negati ve Dictat ed By: Kiara casanova Signed By: 1124 DD/DT: 1109 TD/TT: 1112 Transc riptio nist: JULI [email or web address] [facility] [address] [place], [address], 02/20/2022 16:45:49 06/05/19 23 06/04/2022 XR, chest , 2 view [facility] [address] [place] [address] XRay Report Signed Patien t: Claudia Palma MR#: [id number] 0619 : 2000 Acct:A [id number] Age/Se x: 21 / M ADM Date: Loc: HE.TFM CLI Attend ing Dr: Mariela Urrutia acNeil PA-C Hannah shearer Physic marino: Mariela Urrutia acNeil Date of Servic e: Proced ure(s) : XR chest 2V Access ion Number (s): [id number] H cc: Sakina Luacs EXAM: XR chest 2V CLINIC AL INDICA TION: PERSIS TENT COUGH FINDIN GS: PA and latera l views are submit sin. There is no infilt rate, effusi on, or edema. The heart and medias tinum appear unrema rkable . Bony struct ures appear intact . IMPRES DANNY: Negati ve Electr onical ly Signed in [place] By Kiara casanova MD Dictat ed By: Kiara Guan is Signed By: 1113 DD/DT: 1025 TD/TT: 1025 Transc riptio nist: [email or web address] [facility] [address] [place], [address], 06/04/2022 15:08:15 09/04/1907/25/2022 unlis sin kannan ng order No observ ation record ed. [email or web address] [facility] ([facility]) [address] [place], [address], 09/10/2022 09:45:42 08/29/19 24 08/29/2023 CT, abdom en + pelvi s, w/ contr ast [facility] [address] [place] [address] CT Scan Report Signed Patien t: Claudia Palma MR#: [id number] 0619 : 2000 Acct:A [id number] Age/Se x: 23 / M ADM Date: Loc: HE.AER Attend ing Dr: Hannah shearer Physic marino: Rojelio Dela Cruz MD Date of Servic e: Proced ure(s) : CT abdome n pelvis w IV con Access ion Number (s): [id number] H cc: Sakina Lucas MD EXAM: CT abdome n pelvis w IV con CLINIC AL INDICA TION: Severe sudden pain across the lower abdome n TECHNI QUE: CT of the abdome n and pelvis was perfor med with intrav enous admini strati on of 70 mL Omnipa que [address] and withou t admini strati on of enteri c contra st. Multip lanar reform ats genera sin. Automa sin exposu re contro l dose reduct ion techni que utiliz ed. COMPAR DEVON: CT abdome n September 2021 FINDIN GS: Image qualit y, sensit ivity for detect ion of pathol ogy, and specif icity of findin gs reduce d by imagin g artifa cts due to patien t motion . Liver: No overt pathol ogy Biliar y: No overt pathol ogy Pancre as: No overt pathol ogy Adrena l glands : No overt pathol ogy Spleen : No overt pathol ogy Renal: No overt pathol ogy Stomac h and bowel: CT relati vely insens itive for detect ion of gastro intest inal masses , especi ally those measur ing less than 2 cm. Absenc e of oral contra st reduce s sensit ivity for detect ion of gastro intest inal pathol ogy and specif icity of findin gs.. No eviden ce of obstru ction. Append ix is locate d on the right side of the pelvis and is mildly thicke baylee to 7 mm with no gas in its lumen raisin g the possib ility of early- mild append icitis . No surrou nding free fluid or edema. No free air or absces s. Mesent betty and perito neum: No free air, ascite s or mass. Lymph nodes: Severa l mildly enlarg ed mesent edgard lymph nodes in the RLQ may be relate d. Sensit ivity of CT size criter ia for detect ing lymph node pathol ogy is approx imatel y 85 percen t. Pelvis : Bladde r nondis tended . Prosta te not enlarg ed. CT insens itive for detect ion of many pathol ogies in the prosta te and semina l vesicl es in males, and in the uterus and ovarie s in female s. Vascul ature: No athero sclero sis in the nonane urysma l aorta. This study is not design ed to sensit ively assess for arteri al dissec tions or occlus ions, and is very insens itive for detect ion of venous thromb oses. Bones and soft tissue s: There are degene rative change s lumbar spine. No visibl e acute fractu res or sublux ations in the lumbar spine, pelvis , or hips. CT relati vely insens itive for detect ion of tendon , ligame nt, muscul ar, cartil age and interv ertebr al disc pathol ogy, subcen timete r lucent lesion s, as well as for many pathol ogies within the spinal canal. Electr onical ly Signed in [place] cri By Vilma Dumont MD 007 CT/CT abdome n pelvis w IV con IMPRES DANNY: Append ix is locate d on the right side of the pelvis and is mildly thicke baylee to 7 mm with no gas in its lumen raisin g the possib ility of early- mild append icitis . No surrou nding free fluid or edema. No free air or absces s. Severa l mildly enlarg ed mesent edgard lymph nodes in the RLQ may be relate d. Recomm end manage ment of the patien t's clinic ally suspec sin condit ion and of any above findin gs per clinic al guidel td utiliz ed. Additi onal findin gs as above. Dictat ed By: Vilma Dumont MD Signed By: 1109 DD/DT: 1018 TD/TT: 1026 Transc riptio nist: [place] [email or web address] [facility] [address] [place], [address], 08/30/2023 15:18:32 09/14/1909/14/2023 CT, abdom en + pelvi s, w/ contr ast [facility] [address] [facility] [place] [address] CT Scan Report Signed Patien t: Claudia Palma MR#: [id number] 0619 : 2000 Acct:A [id number] Age/Se x: 23 / M ADM Date: Loc: HE.AER Attend ing Dr: Hannah shearer Physic marino: Aashish dodson PA-C Date of Servic e: Proced ure(s) : CT abdome n pelvis w IV con Access ion Number (s): [id number] H cc: Sakina Lucas MD PROCED URE INFORM ATION: Exam: CT Abdome n And Pelvis With Contra st Exam date and time: 024 8:32 PM Age: 23 years old Clinic al indica tion: Nausea and vomiti ng; Additi onal info: N/v, early appy on 08/28 RX nonsur gicall y TECHNI QUE: Imagin g protoc ol: Comput ed tomogr aphy of the abdome n and pelvis with contra st. Radiat ion optimi zation : All CT scans at this facili ty use at least one of these dose optimi zation techni ques: automa sin exposu re contro l; mA and/or kV adjust ment per patien t size (inclu luzmaria target ed exams where dose is matche d to clinic al indica tion); or iterat kenny recons tructi on. Contra st materi al: OMNI35 0; Contra st volume : 75 ml; Contra st route: INTRAV ENOUS (IV); COMPAR DEVON: CT ABDOME N PELVIS WITH CONTRA ST(Pato lt) 08/29/19 24 10:22 AM FINDIN GS: Lungs: No suspic ious mass or airspa ce proces s in the visual ized lung bases. Liver: Liver appear s normal with no focal abnorm ality. Gallbl adder and biliar y ducts: Gallbl adder is presen t and shows no eviden ce of gallst one. Pancre as: Pancre as demons trates no focal mass or adjace nt inflam mation . Spleen : Spleen appear s homoge neous withou t focal mass. Adrena l glands : Adrena l glands are normal in appear ance. Kidney s and ureter s: Kidney s appear normal , with no stone, solid mass or hydron ephros is. Stomac h and bowel: No concer rebekah asymme try or abnorm ality at the gastro esopha geal juncti on. No eviden ce of small bowel obstru ction. Mural edema and fabian lonic strand ing sugges ts inflam matory or infect ious coliti s. Append ix: A small append icolit h is presen t at the base of the append ix. The append ix measur es 5 mm in diamet er withou t eviden ce of periap pendic eal inflam mation . Small volume of air is presen t within the lumen. Intrap eriton eal space: No pneumo perito neum. Vascul ature: No aortic aneury sm. Main portal and spleni c veins enhanc e normal ly. Lymph nodes: No enlarg ed lymph nodes. Urinar y bladde r: Urinar y bladde r appear s normal . Reprod uctive : Unrema rkable as visual ized. Bones/ joints : Bony struct ures show no acute fractu re or destru ctive proces s. Soft tissue s: Unrema rkable . IMPRES DANNY: 1. Appear ance of the colon sugges ts the possib ility of mild inflam matory or infect ious coliti s 2. Normal calibe r append ix, partia lly air-fi lled and with no inflam matory change , despit e a calcif icatio n or append icolit h at the base of the append ix. The appear ance is not sugges tive of acute append icitis . Electr onical ly Signed By: Inez navarrete MD On 2023 21:41: 20 Dictat ed By: Inez navarrete Signed By: 2140 DD/DT: 2031 TD/TT: Transc riptio nist: [email or web address] [facility] [address] [place], [address], 09/16/2023 09:34:43 10/30/1910/30/2023 US, abdom en, limit ed [facility] [address] [place] [address] Ultras ound Report Signed Patien t: Zaheer du,Claudia Odonnell MR#: [id number] 0619 : 2000 Acct: [id number] Age/Se x: 23 / M ADM Date: Loc: HE.ER Attend ing Dr: Hannah shearer Physic marino: Larry MARROQUIN Date of Servic e: Proced ure(s) : US abdome n limite d Access ion Number (s): [id number] H cc: Sakina Lucas MD EXAM: US abdome n limite d CLINIC AL INDICA TION: RUQ/ep igastr ic pain ADDITI ONAL PERTIN ENT CLINIC AL INFORM ATION: COMPAR DEVON: none FINDIN GS: Pancre as: Within normal limits Liver: No focal lesion identi fied. No intrah epatic biliar y dilata tion. Echoge nicity is normal Portal venous flow: Hepato pedal Common duct: Measur es 3 mm. Gallbl adder: No gallst ones. No wall thicke rebekah or perich olecys tic fluid. No sonogr aphic Kumar 's sign Right kidney : measur es 10.2 cm. No hydron ephros is. Electr onical ly Signed in [place]ribe By Suzette Martinez MD, MD 024 US/US abdome n limite d IMPRES DANNY: No gallst ones, sonogr aphic Kumar sign, or biliar y dilata tion. Dictat ed By: Suzette Martinez MD Signed By: 1246 DD/DT: 1213 TD/TT: 1242 Transc riptio nist: [facility] [email or web address] [facility] [address] [place] [address], [address], 10/31/2023 14:09:20 10/30/19 24 10/30/2023 CT, abdom en + pelvi s, w/ contr ast [facility] [address] [place] [address] CT Scan Report Signed Patien t: Claudia Palma MR#: [id number] 0619 : 2000 Acct:A [id number] Age/Se x: 23 / M ADM Date: Loc: HE.AER Attend ing Dr: Hannah shearer Physic marino: Ronni larson MD Date of Servic e: Proced ure(s) : CT abdome n pelvis w IV con Access ion Number (s): [id number] H cc: Sakina Lucas MD PROCED URE INFORM ATION: Exam: CT Abdome n And Pelvis With Contra st Exam date and time: 10/30/19 9:31 PM Age: 23 years old Clinic al indica tion: Abdomi nal pain; Genera lized TECHNI QUE: Imagin g protoc ol: Comput ed tomogr aphy of the abdome n and pelvis with contra st. Radiat ion optimi zation : All CT scans at this facili ty use at least one of these dose optimi zation techni ques: automa sin exposu re contro l; mA and/or kV adjust ment per patien t size (inclu luzmaria target ed exams where dose is matche d to clinic al indica tion); or iterat kenny recons tructi on. Contra st materi al: OMNI 350; Contra st volume : 75 ml; Contra st route: INTRAV ENOUS (IV); COMPAR DEVON: CT ABDOME N PELVIS WITH CONTRA ST(Pato lt) 024 8:32 PM FINDIN GS: Liver: Findin gs consis tent with fatty infilt ration of the liver are identi fied. Gallbl adder and biliar y ducts: Normal . No calcif ied stones . No ductal dilati on. Pancre as: Normal . No ductal dilati on. Spleen : Normal . No spleno megaly . Adrena l glands : Normal . No mass. Kidney s and ureter s: Normal . No hydron ephros is. Stomac h and bowel: Unrema rkable . No obstru ction. No mucosa l thicke rebekah. Append ix: The append ix is visual ized and appear s normal . Intrap eriton eal space: Unrema rkable . No free air. No signif icant fluid collec tion. Vascul ature: Unrema rkable . No abdomi nal aortic aneury sm. Lymph nodes: Unrema rkable . No enlarg ed lymph nodes. Urinar y bladde r: Unrema rkable as visual ized. Reprod uctive : Unrema rkable as visual ized. Bones/ joints : Unrema rkable . No acute fractu re. Soft tissue s: Unrema rkable . IMPRES DANNY: There are no acute concer rebekah abnorm alitie s. Electr onical ly Signed By: Gregg Mcneil MD On 2023 22:21: 49 Dictat ed By: Gregg Mcneil MD Signed By: 2220 DD/DT: 2130 TD/TT: Transc riptio nist: [email or web address] [facility] [address] [place], [address], 10/31/2023 14:09:21 01/16/20 24 10/30/2023 CT, abdom en + pelvi s, w/ contr ast [facility] [address] [place] [address] [address] Scan Report Signed with Addend violeta Don t: Claudia Palma MR#: [id number] 0619 : 2000 Acct:A [id number] Age/Se x: 23 / M ADM Date: Loc: HE.AER Attend ing Dr: Hannah shearer Physic marino: Ronni larson MD Date of Servic e: Proced ure(s) : CT abdome n pelvis w IV con Access ion Number (s): [id number] H cc: Sakina Lucas MD ADDE NDUM 2023 ADDEND UM: I have review ed the above study and agree with the report . Suzette Martinez MD/sat 2023 2:35 PM Addend Dictat ed By: Suzette Martinez MD Addend Signed By: 1649 Addend Cosign ed By: DD/DT: 7 TD/TT: 7 PROCED URE INFORM ATION: Exam: CT Abdome n And Pelvis With Contra st Exam date and time: 10/30/19 9:31 PM Age: 23 years old Clinic al indica tion: Abdomi nal pain; Genera lized TECHNI QUE: Imagin g protoc ol: Comput ed tomogr aphy of the abdome n and pelvis with contra st. Radiat ion optimi zation : All CT scans at this facili ty use at least one of these dose optimi zation techni ques: automa sin exposu re contro l; mA and/or kV adjust ment per patien t size (inclu luzmaria target ed exams where dose is matche d to clinic al indica tion); or iterat kenny recons tructi on. Contra st materi al: OMNI 350; Contra st volume : 75 ml; Contra st route: INTRAV ENOUS (IV); COMPAR DEVON: CT ABDOME N PELVIS WITH CONTRA ST(Pato lt) 024 8:32 PM FINDIN GS: Liver: Findin gs consis tent with fatty infilt ration of the liver are identi fied. Gallbl adder and biliar y ducts: Normal . No calcif ied stones . No ductal dilati on. Pancre as: Normal . No ductal dilati on. Spleen : Normal . No spleno megaly . Adrena l glands : Normal . No mass. Kidney s and ureter s: Normal . No hydron ephros is. Stomac h and bowel: Unrema rkable . No obstru ction. No mucosa l thicke rebekah. Append ix: The append ix is visual ized and appear s normal . Intrap eriton eal space: Unrema rkable . No free air. No signif icant fluid collec tion. Vascul ature: Unrema rkable . No abdomi nal aortic aneury sm. Lymph nodes: Unrema rkable . No enlarg ed lymph nodes. Urinar y bladde r: Unrema rkable as visual ized. Reprod uctive : Unrema rkable as visual ized. Bones/ joints : Unrema rkable . No acute fractu re. Soft tissue s: Unrema rkable . IMPRES DANNY: There are no acute concer rebekah abnorm alitie s. Electr onical ly Signed By: Gregg Mcneil MD On 2023 22:21: 49 Dictat ed By: Gregg Mcneil MD Signed By: 2220 DD/DT: 2130 TD/TT: Transc riptio nist: [email or web address] [facility] [address] [place], [address], 01/20/2024 19:41:20 01/24/20 24 01/24/2024 XR, chest , 1 view [facility] [address] [facility] [place] [address] XRay Report Signed Patien t: Claudia Palma MR#: [id number] 0619 : 2000 Acct:A [id number] Age/Se x: 23 / M ADM Date: Loc: HE.AER Attend ing Dr: Hannah shearer Physic marino: Bret Guillory MD Date of Servic e: Proced ure(s) : XR chest 1V portab le Access ion Number (s): [id number] H cc: Sakina Lucas MD EXAM: XR chest 1V portab le CLINIC AL INDICA TION: gen med. Nausea and vomiti ng. COMPAR DEVON: 023 FINDIN GS: Heart size normal . Cardio medias tinal silhou ette stable . Normal pulmon ayanna vascul arity. No consol idatio n. No pleura l effusi on. No pneumo thorax . Osseou s struct ures appear intact . Electr onical ly Signed in [place] By CHIDI Larson MD, MD 017 XR/XR chest 1V portab le IMPRES DANNY: No consol idatio n Dictat ed By: Chidi larson MD Signed By: 37 DD/DT: 54 TD/TT: 0903 Transc riptio nist: [email or web address] [facility] [address] [place], [address], 01/24/2024 20:23:35 Result Notes None recorded. Problems Name Problem SNOMED Code Status Onset Date Resolution Date Notes Provider Name and Address Organization Details Recorded Time Major depressi ve disorder 957443779 Active 2018 Not Available [facility] 3 17:16:49 Gastroes ophageal reflux disease 243311245 Active 2018 Not Available [facility] 3 17:16:48 Dehydrat ion 86042846 Completed 08/16/2021 Removal Reason: resolved LOPEZ Benson [address] [place], [address] , [facility] 2 21:45:18 Nausea and vomiting 90771402 Completed 08/16/2021 Removal Reason: resolved LOPEZ Benson [address] [place], [address] , [facility] 2 21:45:06 Abdomina l pain 11188417 Completed 08/16/2021 Removal Reason: resolved LOPEZ Benson [address] [place], [address] , [facility] 2 21:45:12 Kidney stone 71582810 Active 2021 right based on 0 US Not Available [facility] 3 17:16:49 Liver finding 526011590 Active 2021 US 0: echogeni c liver Not Available [facility] 3 17:16:48 Persiste nt cough 596872847 Active 2022 Not Available [facility] 3 17:16:48 Acute pharyngi tis 844459282 Active 2022 Not Available [facility] 3 17:16:48 Allergic rhinitis 85434067 Active 2022 Not Available [facility] 3 17:16:49 Chronic rhinitis 66738961 Active 2022 Not Available [facility] 3 17:16:49 Problem Notes None recorded. Procedures Surgical History Date Name Laterality Status Provider Name and Address Organization Details Recorded Time 08/03/19 23 nasal septotomy completed Hunter Gates LPN [facility] 09/25/2022 09:40:15 08/18/19 22 Advance Care Plan completed LOPEZ Montes [address] [place] [address] [place], [address], [facility] 08/23/2021 15:11:50 03/30/19 20 Laceration Repair completed LOPEZ TAYLOR [address] [place], [address], [facility] 03/30/2019 16:26:51 03/04/19 20 PHQ-9 Patient Health Questionnaire completed LOPEZ Montes [address] [place], [address], [facility] 03/04/2019 14:39:04 Imaging Results Imaging Date Name Status LastModified by Organization Details LastModified Time 10/17/2021 CT, abdomen + pelvis, w/ contrast completed [email or web address] [facility] [address] [place], [address], 10/18/2021 14:00:37 10/17/2021 CT, abdomen + pelvis, w/ contrast completed [email or web address] [facility] [address] [place], [address], 10/18/2021 14:00:40 01/16/2022 electrocardiogram completed [email or web address] [facility] [address] , [place], [address], 01/16/2022 15:31:44 01/11/2022 electrocardiogram completed [facility] [address] , [place], [address], 01/11/2022 10:38:29 02/13/2022 holter monitor completed [facility] (Central Scheduling) [address] [place] [address], [address], 02/13/2022 11:48:02 02/20/2022 XR, knee, 3 view completed [email or web address] [facility] [address] [place], [address], 02/20/2022 16:45:49 06/04/2022 XR, chest, 2 view completed [email or web address] [facility] [address] [place], [address], 06/04/2022 15:08:15 07/25/2022 unlisted imaging order completed [address] (Central Scheduling) [address] [place] [address], [address], 09/10/2022 09:45:42 08/29/2023 CT, abdomen + pelvis, w/ contrast completed [email or web address] [facility] [address] [place], [address], 08/30/2023 15:18:32 09/14/2023 CT, abdomen + pelvis, w/ contrast completed [email or web address] [facility] [address] [place], [address], 09/16/2023 09:34:43 10/30/2023 US, abdomen, limited completed [email or web address] [facility] [address] [place] [address], [address], 10/31/2023 14:09:20 10/30/2023 CT, abdomen + pelvis, w/ contrast completed [email or web address] [facility] [address] [place], [address], 10/31/2023 14:09:21 10/30/2023 CT, abdomen + pelvis, w/ contrast completed [email or web address] [facility] [address] [place], [address], 01/20/2024 19:41:20 01/24/2024 XR, chest, 1 view completed [email or web address] [facility] [address] [place], [address], 01/24/2024 20:23:35 Procedure Notes None recorded. Medical Equipment None Reported. Allergies Allergen ID Allergen Name Allergen Category Reaction Reaction Severity Criticality Documentation Date Start Date Code Code System Note Provider Name and Address Organization Details Recorded Time 20320902 cephalexi n medicatio n rash Not available Not available 10/03/20222022 2231 RxNorm Alyson matson [facility] 3 10:34:04 149255 kiwi fruit extract food itching Not available Not available 10/03/20222022 93564 01 RxNorm Alyson matson [facility] 3 10:33:45 Medications Name Sig Start Date Stop Date Status Note LastModified by Organization Details LastModified Time amoxicilli n 500 mg capsule 04/29 completed Not Available Not Available Not Available cromolyn 5.2 mg/spray (4 %) nasal spray USE 1 SPRAY(S) INTRANAS ALLY THREE TIMES DAILY NEEDED active Not Available Not Available No t Available albuterol sulfate 2.5 mg/3 mL (0.083 %) solution for nebulizati on Inhale 3 mL by nebuliza tion route. 08/16 completed Not Available Not Available Not Available hydrocodon e 5 mg-acetami nophen 325 mg tablet TAKE 1 TO 2 TABLETS BY MOUTH EVERY 6 HOURS NEEDED FOR PAIN . DO NOT EXCEED 8 PER 24 HOURS active Not Available Not Available No t Available prednisone 20 mg tablet TAKE 2 TABLETS BY MOUTH ONCE DAILY DIRECTED FOR 5 DAYS active Not Available Not Available No t Available metronidaz ole 500 mg tablet TAKE 1 TABLET BY MOUTH TWICE DAILY active Not Available Not Available No t Available amoxicilli n 875 mg tablet TAKE 1 TABLET BY MOUTH TWICE DAILY FOR 10 DAYS active Not Available Not Available No t Available famotidine 20 mg tablet TAKE 1 TABLET BY MOUTH TWICE A DAY active Not Available Not Available No t Available cephalexin 500 mg capsule TAKE 1 CAPSULE BY MOUTH THREE TIMES DAILY FOR 7 DAYS. TO START THE DAY AFTER SURGERY active Not Available Not Available No t Available prednisone 50 mg tablet active Not Available Not Available Not Available omeprazole 20 mg capsule,de layed release Take 1 capsule every day by oral route for 30 days. 03/04 completed Pt sttaes he is not taking 03/04/19- mb Not Available Not Available Not Available montelukas t 10 mg tablet TAKE 1 TABLET BY MOUTH ONCE DAILY DIRECTED FOR 90 DAYS 2022 active Not Available Not Available Not Avai lable levofloxac in 750 mg tablet TAKE 1 TABLET BY MOUTH EVERY 24 HOURS active Not Available Not Available No t Available ondansetro n 4 mg disintegra ting tablet DISSOLVE 1 TABLET IN MOUTH EVERY 6 HOURS NEEDED FOR NAUSEA AND VOMITING active Not Available Not Available No t Available fluticason e propionate 50 mcg/actuat ion nasal spray,susp ension USE 2 SPRAY(S) IN EACH NOSTRIL ONCE DAILY active Not Available Not Available No t Available sertraline 50 mg tablet Take 1 tablet every day by oral route for 30 days. 03/04 completed Pt sttaes he is not taking 03/04/19- mb Not Available Not Available Not Available amoxicilli n 875 mg-potassi um clavulanat e 125 mg tablet TAKE 1 TABLET BY MOUTH EVERY 12 HOURS active Not Available Not Available No t Available Ventolin HFA 90 mcg/actuat ion aerosol inhaler INHALE 2 PUFFS BY MOUTH SIX TIMES DAILY NEEDED FOR SHORTNES S OF BREATH FOR WHEEZING active Not Available Not Available No t Available Loratadine -D 10 mg-240 mg tablet,ext ended release 24 hr TAKE 1 TABLET BY MOUTH ONCE DAILY FOR 30 DAYS active Not Available Not Available No t Available capsaicin 0.1 % topical cream PLEASE SEE ATTACHED FOR DETAILED DIRECTIO NS active Not Available Not Available No t Available ProChamber 08/17 completed pt no longer taking Not Available Not Available Not Available Vitals Date Recorded Body weight Body mass index (BMI) Body mass index (BMI) Percentile per age and sex Body height Heart rate Oxygen saturation Oxygen saturation in Arterial blood by Pulse oximetry Systolic blood pressure Diastolic blood pressure Provider Name and Address Organization Details Last Updated DateTime 2 06785.7 g 20.8 kg/m2 26 % 180.34 cm 88 /min 98 % 98 % 112 mm[Hg] 70 mm[Hg] Lucy Szymanski [facility] 2 12:30:01 Date Recorded Body height Body mass index (BMI) Body mass index (BMI) Percentile per age and sex Body weight Heart rate Oxygen saturation Oxygen saturation in Arterial blood by Pulse oximetry Systolic blood pressure Diastolic blood pressure Provider Name and Address Organization Details Last Updated DateTime 2 180.34 cm 20.3 kg/m2 18 % 32926.9 9 g 110 /min 97 % 97 % 124 mm[Hg] 78 mm[Hg] Yareli Price, [facility] 2 15:35:16 Date Recorded Body height Body mass index (BMI) Body mass index (BMI) Percentile per age and sex Body weight Heart rate Oxygen saturation Oxygen saturation in Arterial blood by Pulse oximetry Heart rate Oxygen saturation Oxygen saturation in Arterial blood by Pulse oximetry Heart rate Oxygen saturation Oxygen saturation in Arterial blood by Pulse oximetry Heart rate Oxygen saturation Oxygen saturation in Arterial blood by Pulse oximetry Systolic blood pressure Diastolic blood pressure Systolic blood pressure Diastolic blood pressure Systolic blood pressure Diastolic blood pressure Systolic blood pressure Diastolic blood pressure Provider Name and Address Organization Details Last Updated DateTime 2 180.34 cm 20.1 kg/m2 15 % 23187.3 g 86 /min 100 % 100 % 64 /min 97 % 97 % 64 /min 99 % 99 % 105 /min 98 % 98 % 136 mm[Hg] 70 mm[Hg] 112 mm[Hg] 64 mm[Hg] 102 mm[Hg] 66 mm[Hg] 100 mm[Hg] 68 mm[Hg] Cinthya Arauz [facility] 2 10:23:34 Date Recorded Body height Body mass index (BMI) Body mass index (BMI) Percentile per age and sex Body weight Heart rate Oxygen saturation Oxygen saturation in Arterial blood by Pulse oximetry Systolic blood pressure Diastolic blood pressure Provider Name and Address Organization Details Last Updated DateTime 3 180.34 cm 20.1 kg/m2 13 % 63545.3 g 123 /min 98 % 98 % 118 mm[Hg] 68 mm[Hg] Alyson Boudreaux [facility] 3 09:54:48 Social History Question Answer Notes LastModified by Organizat ion Details LastModified Time Tobacco Smoking Status Former Smoker Has tried smoking/vapin g cigarettes but does not smoke regularly Kimberly Jeffries MD [address] [place] [address], [address], [facility] 08/17/2019 10:35:36 Do You Have An Advance Directive? Yes Mother, Mariola [email or web address] Information not available 08/20/2022 What Is Your Level Of Alcohol Consumption? None Information not available 08/17/2021 Is Blood Transfusion Acceptable In An Emergency? Yes Information not available 08/17/2021 What Is Your Code Status? Full Code Information not available 08/17/2021 What Type Of Diet Are You Following? REGULAR Information not available 03/04/2019 Do You Or Have You Ever Used E-cigarettes Or Vape? Former User Of Electronic Cigarettes Information not available 03/04/2019 What Is The Highest Grade Or Level Of School You Have Completed Or The Highest Degree You Have Received? OT73228-2 Working On His High School Diploma Information not available 08/17/2021 When Did You Quit Smoking? 1-5yearssince lastcigarette 20 Yo Information not available 08/17/2021 Are There Any Guns Present In Your Home? No Information not available 03/04/2019 Hand Dominance Left Informatio n not available 03/04/2019 Hepatitis C Screen 08/18/2021 Non-reactive Information not available 08/23/2021 Number Of Siblings 3 Names: Mendy Gomez 1998; Carlos Pinedo 2000; Dorita Barrios 2008 Information not available 03/04/2019 Tobacco Exposure Yes Second Hand - Mom Smokes Inside Her Bedroom Information not available 03/04/2019 Pets In Home Yes 2 Dogs: Oleksandr, Garland Information not available 03/04/2019 Mother In Home Yes Mariola Barrios Infor mation not available 03/04/2019 Father In Home No Warren Khris Information not available 03/04/2019 Grade In School 11 [employer] Information not available 03/04/2019 CO Detector In Home Yes Information not available 03/04/2019 Failed/Repeate d Grade In School Yes Information not available 03/04/2019 Behavior In School Fair Information not available 03/04/2019 Academic Performance Fair Information not available 03/04/2019 What Was The Date Of Your Most Recent Tobacco Screening? 08/17/2021 [email or web address] Information not available 08/17/2021 Do You Use Protection During Sex? Always Information not available 08/17/2021 Seat Belts Used Routinely Yes Information not available 03/04/2019 Are You Sexually Active? Yes Uses Protection Information not available 03/04/2019 Smoke Alarm In Home Yes Information not available 03/04/2019 At What Age Did You Start Smoking Tobacco? 14 Information not available 08/17/2021 Do You Or Have You Ever Used Smokeless Tobacco? Never Used Smokeless Tobacco Information not available 03/04/2019 Do You Or Have You Ever Used Any Other Forms Of Tobacco Or Nicotine? Yes Vaping Information not available 08/17/2021 Sex: Unknown Functional Status Question Answer Note LastModified by Organizat ion Details LastModified Time What is your exercise level? Occasional Information not available 03/04/2019 Mental Status None recorded. Family History Relationship Description Onset Age of this Age Resolved Age Notes LastModified by Organization Details LastModified Time Mother Anxiety Not avail able 03/04/2019 13:57:28 Mother Depressive disorder Not available 13:57:59 Sister Anxiety Not avail able 03/04/2019 13:57:28 Sister Depressive disorder Not available 13:57:59 Maternal Uncle Malignant melanoma Not available 14:29:52 Medical History Condition Response bladder / kidney infection(s) N asthma N glaucoma N use of alcohol or drugs? N ADD N pneumonia N nasal allergies N frequent headaches/migraines N problems with eyes/vision N diabetes N heart problems, murmurs N bronchitis N problems with ears/hearing N frequent abdominal pain N serious illness or medical conditions N frequent ear infections N ADHD N other N chickenpox N anxiety disorder Y thyroid disease or other endocrine probl ems N constipation N cancer N arthritis N hospitalizations N depression Y PTSD N anemia or bleeding problems N anesthesia allergy/complications N serious injuries or accidents N chronic or recurrent skin problems (acne /eczema) N convulsions or other neurological proble ms N blood transfusion(s) N Immunizations Vaccine Type Date Status Note Provider Nam e and Address Organization Details Recorded Time Hep B, unspecified formulation 3 completed Not Available [facility] 09/20/2022 17:16:49 Hep B, unspecified formulation 3 completed Not Available [facility] 09/20/2022 17:16:49 Hep B, unspecified formulation 5 completed Not Available [facility] 09/20/2022 17:16:49 DTP 3 completed Not Available [facility] 09/20/2022 17:16:49 DTP 3 completed Not Available [facility] 09/20/2022 17:16:49 DTP 4 completed Not Available [facility] 09/20/2022 17:16:49 DTP 5 completed Not Available [facility] 09/20/2022 17:16:49 DTP 8 completed Not Available [facility] 09/20/2022 17:16:49 Hib, unspecified formulation 3 completed Not Available [facility] 09/20/2022 17:16:49 Hib, unspecified formulation 3 completed Not Available [facility] 09/20/2022 17:16:49 Hib, unspecified formulation 4 completed Not Available [facility] 09/20/2022 17:16:49 Hib, unspecified formulation 5 completed Not Available [facility] 09/20/2022 17:16:49 pneumococcal, unspecified formulation 3 completed Not Available [facility] 09/20/2022 17:16:49 pneumococcal, unspecified formulation 3 completed Not Available [facility] 09/20/2022 17:16:49 pneumococcal, unspecified formulation 4 completed Not Available [facility] 09/20/2022 17:16:49 pneumococcal, unspecified formulation 5 completed Not Available [facility] 09/20/2022 17:16:49 polio, unspecified formulation 3 completed Not Available [facility] 09/20/2022 17:16:49 polio, unspecified formulation 3 completed Not Available [facility] 09/20/2022 17:16:49 polio, unspecified formulation 5 completed Not Available [facility] 09/20/2022 17:16:49 polio, unspecified formulation 8 completed Not Available [facility] 09/20/2022 17:16:49 MMR 5 completed Not Available [facility] 09/20/2022 17:16:49 MMR 8 completed Not Available [facility] 09/20/2022 17:16:49 varicella 4 completed Not Available [facility] 09/20/2022 17:16:49 varicella 5 completed Not Available [facility] 09/20/2022 17:16:49 Tdap 5 completed Not Available [facility] 09/20/2022 17:16:49 meningococcal ACWY, unspecified formulation 7 completed Not Available [facility] 09/20/2022 17:16:49 COVID-19, mRNA, LNP-S, PF, 30 mcg/0.3 mL dose 1 completed Alyson Barbermbardi CCMA huyen, [facility] 10/08/2022 08:46:43 COVID-19, mRNA, LNP-S, PF, 30 mcg/0.3 mL dose 1 completed Alyson Boudreaux MARYAMA huyen, [facility] 10/08/2022 08:46:43 Tdap 3 completed Alyson Janusz MARYAMA huyen, [facility] 10/08/2022 08:46:43 Past Encounters Encounter ID Performer Location Encounter Start Date Encounter Closed Date Diagnosis/Indication Diagnosis SNOMED-CT Code Diagnosis ICD10 Code Diagnosis Note [id number] Marlin Lucas MD [address] [address] 03/04/2019 13:48:56 03/04/2019 15:20:53 Acute pharyngitis 372109483 J02.9 Rapid strep test negative in office today. Will send throat culture. Advised supportive care with PO fluids, APAP/NSAID s for discomfort , rest, and frequent hand washing. Will call patient if throat culture positive for GAS. Acute bronchitis 2635817 2 J20.9 Suspect viral cause. Has associated wheezing so will Tx with Albuterol Inhaler/Ne bulizer q4-6h PRN; Discussed benefits and encouraged delivery of Albuterol Inhaler through a spacer. Informed pt that a Viral Acute Bronchitis may last up to 6-8 weeks for complete resolution . F/U for worsening sx. Gastroesop hageal reflux disease 938296439 K21.9 Asymptomat ic w/o need for medication . Major depr essive disorder 621332202 F32.5 PHQ-9 Score: 3. Negative for depression . Pt denies symptoms. Patient ne w to facility [id number] 08098 Z76.89 Tab is a 18 yo M presenting to the clinic for an initial visit. Immunizati ons reviewed and are UTD. PMHx includes: GERD and MDD Has a diagnosis of depression and prescribed sertraline 25 mg daily for a few months. Pt and mother denies depression . He states the medication did not do anything. Stopped taking it in 2018. Denies depression today. GERD - Has been asymptomat ic for a few months now. [id number] Magali Khan MD [facility] [address] [place] [address] 03/30/2019 15:08:43 03/30/2019 16:52:00 Laceration of lower leg 804963930 S81.812A 4cm horizontal laceration noted on anterior LLE. Sterile environmen t was obtained. 4-0 Nylon stitches used. Area was cleansed rinsed with normal saline and sterilized with betadine. 5 simple interrupte d stitches were placed. Procedure tolerated well. Bandage placed to area, and wrapped with coban. Discussed keeping area covered at all times. Advised f/u in 7-10 days with PCP for stitch removal. Stitches placed by Maryanne MARROQUIN. Pt eval by Maryanne MARROQUIN and Nohemy Horton NP. Injury of lower leg 1256 [address]9400 S89.92XA 18 YO M coming in with an injury to his LLE that occurred today. Injury occurred indoors. Pt states that he ran into a broken chair at home, and obtained a laceration to LLE. TTP along LLE and bleeding noted on exam. VS reviewed. Tetanus vaccine UTD. On exam, 4cm horizontal laceration noted on anterior LLE. Normal MSK/neuro exam. Bleeding controlled . Laceration repair as below. WIll obtain Xray of LLE as below and follow up with results. Can take OTC Ibuprofen/ Tylenol as needed for pain. School note given to avoid physical activity for the next week. [id number] Marlin Lucas MD [facility] [address] [place] [address] 04/21/2019 15:51:09 04/21/2019 16:59:12 Laceration of lower leg 499077397 S81.812D Healing well. Sutures removed. Supportive care. FOllow up if any signs or symptoms of infection. [id number] Kimberly Jeffries MD [facility] [place] [address] 08/17/2019 10:03:39 08/17/2019 10:58:52 Abdominal pain 31323777 R10.9 Monitor triggers / avoid/ today will do labs and image tests pepcid trial monitor s.s. ; food options and hydration talk to PCP team for sympotsm; test and meds F/up Pt/ mom aware if worse / new s/s/ ER for eval [id number] LOPEZ Benson [address] [address] 09/30/2019 15:55:02 10/01/2019 11:09:43 Pain in pelvis 45455906 R10.2 Recurrent for 3 months now. Aggravated by pushing carts at work. Asking for work note to be excused from pushing carts due to his localized RLQ pain. No change in symptoms since he was seen by Dr. Jeffries on 08/16. Advised to get his KUB and US done. Labs are nml. ? if MSK in etiology. f/u when results are received. Note provided to temporaril y provide pt accomodati ons while working up his symptoms. Constipation 90034536 K5 9.00 Long discussion on dietary modificati ons. Advised to use miralax daily for the first few days and monitor symptoms. f/u prn. [id number] [facility] [address] [address] 12/17/2019 15:41:00 12/17/2019 17:11:04 Viral screening 571235559 Z11.59 [id number] Latia Ackerman, [employer], [address] [address] 12/27/2020 11:35:50 12/27/2020 12:48:12 Viral syndrome 749092334 B34.9 Rest. Push fluids. You are contagious . Please use contact precaution s. You have been diagnosed with a viral illness. Antibiotic s will not treat a viral infection and may be harmful. Symptoms usually last 4 to 7 days; however if symptoms are worsening or do not get better please contact your Primary Care office. You may gargle with warm fluids or use acetaminop hen and/or ibuprofen for comfort. If additional symptoms develop such as fever of 101.5 F, shortness of breath, or wheezing contact your Primary Care office. Refused covid test. Patient has covid test kit at home and checking himself for covid daily. [id number] BUD RODRIGUEZ NP [facility] [address] [address] 01/13/2021 14:04:25 01/13/2021 17:19:35 Exposure to SARS-CoV-2 113504378 Z20.822 Patient requests Covid testing only, declines evaluation at this time by provider. [id number] Mariela ron, PA [address] [address] 08/17/2021 12:17:13 08/17/2021 14:38:23 Adult health examination 204505587 Z00.00 Pt presents to office for cpe. Pt states Dial Self is requesting a letter stating that he is safe to live on his own. Pt currently lives with mom. Pt states no concerns today. RC no covid/flu vaxtdap 2015GC/C - Depression Screening: PHQ9=0 Pt denies depression - Hep C Screening due- Tobacco Screening: Former smoker quit last year- Denies ETOH or other recreation al substance use- HCProxy: Mother, Mariola Branham, form filled out on 08/17/2021 Patient should discuss medical decisions with Health Care Proxy. Reviewed vaccines and current recommenda tions. Basic health topics include aerobic exercise, importance of healthy/ba lanced diet and minimizing caffeine and alcohol. Hepatitis C screening 41 [id number] Z11.59 Major depr essive disorder [id number] F32.5 PHQ-9 Score: 3. Negative for depression . He states his depression was situationa l and completely resolved w/o treatment. [id number] Marlin Lucas MD [address] [phone] 10/18/2021 15:22:29 10/18/2021 16:12:48 Abdominal pain [id number] R10.9 Seen in ED last night with abdominal pain and vomiting. Labs, urine, CT were negative. Given zofran upon discharge with improvemen t in nausea once taken. Mild lower abdominal/ suprapubic pain on palpation. Will eat bland diet with no spicy/citr us foods and advance slowly. Follow up if no improvemen t in 3-5 days. Nausea and vomiting [id number] R11.2 Nausea and vomiting for approx 12 hours. Vomiting stopped with zofran. Nausea improved. [id number] Magali Khan MD [address] [phone] 01/11/2022 09:26:00 01/11/2022 10:31:48 Lightheadedness [id number] R42 Exam rather reassuring todayNot sure exact cause, will order labs and holter monitor for further evaluation Consider referral to cardiology after results.Ad vised if noted low HR with symptoms to go to ER for further evaluation .Advised to drink plenty of fluids.EKG sinus mercedes without signs of ischemiaOr thos slightly orthostati c with position changes-wi th increase HR. BP stable. [id number] Mariela ron, PA [address] [address] 06/04/2022 09:43:18 06/04/2022 11:53:00 Persistent cough [id number] R05.3 Reports rhinitis for a year now. Has tried using OTC allergy medication s and decongesta nts w/o improvemen t. He c/o wheezing and coughing. Unable to sleep due to coughing and wheezing at night. Former smoker quit 19 yo. Smoked from 13 -19 yo, 1-2 PPD. Currently vaping 0 nicotine (vegetable glycerin based) for about 6 months now. For the past week he has been coughing up yellowish green thick phlegm. This morning coughed up a tinge of blood. Denies sick contacts. Reports sinus pain, headaches, sore throat today, coughing more this week, today and yesterday were the worst. Reports nose bleed yesterday and the other day. Denies fever, chills but gets cold sweats at night. Currently using his ventolin up to 5x per day which does not stop the wheezing. Mom and sister have asthma. He went to [facility] for the same symptoms around a month ago. He was given an albuterol inhaler and prescribed 30 day loratadine . He took it daily but did not work. Pt was wheezing in all lobes. No sinus tenderness on exam. Will tx for possible reactive airway with prednisone while awaiting CXR results. f/u in 1 wk or sooner as needed. Acute pharyngitis [id number] J02.9 Rapid strep neg. Rest and push fluids. Recommend salt water gargles. Chronic rhinitis [id number] J31.0 Pt reports no response OTC allergy medication or decongesta nts. Recommend trial of singulair daily. Can also use cromolyn nasal spay prn. Steroid nasal sprays did not work for him. Counseled pt on possible side effects such as depression and suicidalit y. However, due to pt's lack of response to OTC allergy treatments , he would like to give singulair a try. Pt expresses understand ing of possible side effects and agreeable to plan. Will initiate referral to ENT for further evaluation and tx. Major depr essive disorder [id number] F32.5 Pt reports hx of depression currently in remission without need for medication . Advise to monitor symptoms while on singulair. Pt expresses understand ing of possible side effects and agreeable to plan. Health Concerns Section Related Observation LastModified by Organization Detai ls LastModified Time None Recorded Concern Status LastModified by Organization Details LastModified Time None Recorded Advance Directives Directive Y: Mother, Mariola Barrios Payers Encounter Date Sequence Insurance Name Policy Number Policy Shaikh Covered Member ID Shaikh Member ID Guarantor Name 01/13/2021 1 [facility] (MEDICAID HMO) [id number] Tab Pinedo [id number] Mariola Barrios 08/17/2021 1 [facility] (MEDICAID HMO) [id number] Tab Pinedo [id number] Mariola Barrios 10/18/2021 1 [facility] (MEDICAID HMO) [id number] Tab Pinedo [id number] Mariola Barrios 01/11/2022 1 [facility] H[facility] [id number] Tab Pinedo [id number] Mariola Barrios 06/04/2022 1 [place] [facility] Tab Pinedo [id number] Mariola Denis Notes Date Note Type Note Provider Name and Address Organization Details Recorded Time 08/17/2021 text/html Pt presents to office for cpe. Pt states Dial Self is requesting a letter stating that he is safe to live on his own. Pt currently lives with mom. Pt states no concerns today. RC no covid/flu vaxtdap 2015GC/C - Depression Screening: PHQ9=0 Pt denies depression- Hep C Screening due- Tobacco Screening: Former smoker quit last year- Denies ETOH or other recreational substance use- HCProxy: Mother, Mariola Branham, form filled out on 08/17/2021 LOPEZ Montes [address] [place], [phone], [facility] 08/23/2021 15:13:26 10/18/2021 text/html Pt presents in office today for f/u ED visit for abd pain and vomiting. pt states he was having bad stoamch apins yesterday he went to er 930 last night . pt did vomit today around 10 -mb Tab presents today for follow up on abdominal pain and vomiting that started yesterday. The pain went away for approx 30 minute but returned and was constant. He started vomiting and went to the ED at 9:30 pm. They did UA and blood tests that were negative. A CT was also negative. They prescribed ODT zofran. He last vomited at 10 am today. He got his prescription at approx 11 am and stopped vomiting after that. Currently the nausea is better. He has pain lower in his abdomen at the suprapubic level. The pain stopped for a little bit. It is now coming in waves. There has been no diarrhea. He had a normal BM yesterday. No BM today. No dietary changes, no weird/bad foods. No one else is sick. No sick acquaintances. Marlin Lucas MD [address] [place], [phone], [facility] 10/21/2021 16:13:11 01/11/2022 text/html Pt presents in office today to discuss bradyardia while sleeping.-DT For past week reports his HR in 30s, for over 10 mins only occuring at night per his apple watchAlso report blurry vision, lightheaded when standing over past several monthsNo chest painWhile awake HR in the 80sDenies snoringDenies sore throatDenies chest painNot currently taking any medsNo recent alcohol useSmokes marijuana and cigarettes-has not had any marijuana this weekHaving a hard time sleeping, not new.Does not play any sports-goes to gym 4-5 times per week and lifts, runs on a treadmill.Does report headaches, also not new.Reports occasional nausea and vomiting-reporting not new.Does report a gradual weight >100lb weight loss with dieting and exercise.Reports eating a well balanced diet, and reports drinking plenty of water.Not taking any drugs or weight loss supplements.Denies use of energeu drinks or coffee. Magali Khan MD [address] [place] [address], [phone], [place] - [facility] 01/11/2022 13:17:29 06/04/2022 text/html [facility]. Pt states his chest hurts when he coughs and is unable to sleep well because he wheexes when he lays down. He says he was seen at [facility] 1 month ago and he was prescribed an allergy med and an inhaler, but they are not working. - SCL Covid - x2, Last 08/13/20FLU - no Reports rhinitis for a year now. Has tried using OTC allergy medications and decongestants w/o improvement. He c/o wheezing and coughing. Unable to sleep due to coughing and wheezing at night. Former smoker quit 19 yo. Smoked from 13 -19 yo, 1-2 PPD. Currently vaping 0 nicotine (vegetable glycerin based) for about 6 months now. For the past week he has been coughing up yellowish green thick phlegm. This morning coughed up a tinge of blood. Denies sick contacts. Reports sinus pain, headaches, sore throat today, coughing more this week, today and yesterday were the worst. Reports nose bleed yesterday and the other day. Denies fever, chills but gets cold sweats at night. Currently using his ventolin up to 5x per day which does not stop the wheezing. Mom and sister have asthma. He went to [facility] ED for the same symptoms around a month ago. He was given an albuterol inhaler and prescribed 30 day loratadine. He took it daily but did not work. LOPEZ Montes [address] [place] [address], [place], [phone], [facility] 06/04/2022 10:33:42
--- OUTSIDE RECORDS SUMMARY | 2024-06-05 10:27 | XMS_ITS | Clinical Summary ---
Author Organization [facility] Address [address] [place] [address] Care Team Providers Care Supplier Diversity Director Name Role Phone Marlin Lucas Primary Care Provider [phone] Allergies Active Allergy Reactions Criticality Noted Date [...] 08/07/2022 1:00 PM EDT Plan of Treatment Health Maintenance Due Date Last Done Comments HIV Screening 2002 Hepatitis C Screening 2002 1 Week [facility] 2002 1 Month [facility] 2002 2 Month [facility] 2002 4 Month [facility] 2002 6 Month [facility] 2002 9 Month [facility] 03/29/2003 12 Month [facility] 07/09/2003 15 Month [facility] 09/25/2003 18 Month [facility] 12/24/2003 24 Month [facility] 06/21/2004 30 Month [facility] 10/25/2004 3 to 21 Year [facility] 2005 Well Child Check 2005 Pneumococcal Vaccine: Pediatric (0-5 Years) and At-Risk Patients (6-50 Years) (1 of 1 - PPSV23) 2008 07/12/2004, 11/04/2003, 2002, Additional history exists HPV Vaccines (1 - Male 3-dose series) 2017 COVID-19 Vaccine ( season) 2023 08/13/2020, 07/22/2020 Alcohol/Substance Use Screening 02/26/2024 Depression Screening and Follow-Up 02/26/2024 Social Drivers of Health Annual Screening 02/26/2024 Influenza Vaccine (Season Ended) 2024 DTaP,Tdap,and Td Vaccines (8 - Td or Tdap) 10/05/2032 10/05/2022, 01/26/2015, 09/17/2007, Additional history exists RSV Vaccine (60+ years old and patients) (1 - 1-dose 75+ series) 2077 Hepatitis B Vaccines Completed 05/29/2004, 2002, 2002 MMR Vaccines Completed 09/17/2007, 07/12/2004 Varicella Vaccines Completed 01/26/2015, 12/14/2003 Meningococcal Vaccine Aged Out 01/30/2017 No katarzyna genaro eligible based on patient's age to complete this topic Insurance [facility] MEDICAID HSNO/FREE CARE Advance Directives * Full Code (Latest Code Status on File) Date Activated Date Inactivated Comments 08/02/2022 10:54 AM 08/02/2022 8:29 PM Care Teams Supplier Diversity Director Relationship Specialty Start Date End Date Marlin Lucas [address] [place] [phone] PCP - General Family Medicine 08/06/22
--- OUTSIDE RECORDS SUMMARY | 2024-06-05 10:27 | XMS_ITS | Encounter Summary ---
Author Organization [facility] Address [address] [place] [address] Care Team Providers Care Clerk Entry Level Name Role Phone Marlin Lucas Primary Care Provider [phone] Encounter Details Date Type Department Care Team (Late st Contact Info) Description 07/27/2022 [facility] Message [facility] Pre Surgical Evaluation [address] [place] [address] Mychart, Generic Provider [address] [place], [place] [id number] Preop Instructions for surgery 08/02/22 -Dr Zavaleta Social History Tobacco Use Types Packs/Day Years Used Date Smoking Tobacco: Former Cigarettes Smokeless Tobacco: Never Comments:Smoked from gra d through high school Alcohol Use Standard Drinks/Week Comments Yes 0 (1 standard drink = 0.6 oz pur e alcohol) 1-2 every few weeks Sex and Gender Information Value Date Recorded Sex Assigned at Male 10/31/2023 12:44 PM EDT Legal Sex Male 10:32 AM EDT Gender Identity Not on file Sexual Orientation Not on file documented as of this encounter Plan of Treatment Not on file documented as of this encounter Visit Diagnoses Not on filedocumented in this encounter Care Teams Clerk Entry Level Relationship Specialty Start Date End Date Marlin Lucas [address] [place] [phone] PCP - General Family Medicine 08/06/22 documented as of this encounter
[2024-06-05 10:39] VITALS: BP 125/78; PULSE 78; RESP 16; TEMP 36.4; O2SAT 100
== END 2024-06-05 10:41 | disposition home or self-care (01) ==
PROVIDERS: Emergency Provider Emergency Medicine Emergency Medical Services
DX: R10.2 Pelvic and perineal pain (principal); R11.2 Nausea with vomiting, unspecified; Z79.899 Other long term (current) drug therapy
CPT/HCPCS: 36415; 74177; 80053; 82248; 83690; 83735; 85025; 86140; 96374; 96375; 99284; J2270; J2405; Q9967

== ENCOUNTER → 2024-06-05 09:19 | Outpatient (BNV) | payer OTHER, SELFPAY | PROVIDERS: Emergency Provider Emergency Medicine Emergency Medical Services; Visit Provider Radiology Diagnostic Radiology | DX: R10.9 Unspecified abdominal pain (principal) | CPT/HCPCS: 74177 ==

== ENCOUNTER 2024-11-02 07:44 | Emergency (ER) | payer OTHER, SELFPAY ==
--- NOTE | ~2024-11-02 | XR_ITS ---
EXAMINATION: XR HAND 3 OR MORE VIEWS LEFT HISTORY: crush injury COMPARISON: There are no prior studies available for comparison. FINDINGS: Three views of the left hand are submitted. Osseous mineralization is normal. There is a healed fracture deformity involving the 5th metacarpal. No acute fracture or dislocation is seen. The joint spaces are preserved. The soft tissues are unremarkable. XR/XR hand LT min 3V IMPRESSION: No evidence of acute fracture of the left hand. Electronically signed by: Harley Garcia MD 11/02/2024 02:02 PM EDT
--- NOTE | ~2024-11-02 | CT_ITS ---
EXAMINATION: CT ABDOMEN AND PELVIS WITH CONTRAST CLINICAL INFORMATION: Right inguinal strangulated hernia. COMPARISON: June 05, 2024 TECHNIQUE: Multidetector volumetric images were obtained from the superior aspect of the liver through the pubic symphysis following administration 85 mL of Omnipaque 350 intravenous contrast. Sagittal and coronal reformatted images were obtained on the technologist's workstation. Oral contrast: No This CT examination was performed using dose optimization techniques as appropriate, variously including the following: *Automated exposure control *Adjustment of mA and/or kV according to patient size (this includes techniques or standardized protocols for targeted exams where dose is matched to indication/reason for exam; i.e. extremities or head) *Use of iterative reconstruction technique DLP: 453 mGy centimeter. FINDINGS: LUNG BASES: No acute airspace disease or discrete pulmonary nodules. LIVER, GALLBLADDER, AND BILIARY TREE: Liver measures 16 cm. No focal mass. Portal veins and hepatic veins and intrahepatic portion of the IVC are patent. Gallbladder is nondistended. No pericholecystic fluid collection or gallbladder wall thickening. No intrahepatic or extrahepatic biliary ductal dilatation. PANCREAS: No focal mass. No main pancreatic ductal dilatation. No peripancreatic fluid collection. SPLEEN: 10 cm. No focal mass. ADRENAL GLANDS: No nodular lesions. KIDNEYS AND URETERS: No renal mass. No hydronephrosis. No gross nephrolithiasis. Normal enhancement pattern of the renal parenchyma. Subcentimeter cysts, right kidney.. BLADDER: Fluid-filled. GASTROINTESTINAL TRACT: Appendix is normal. Abundant stool, large intestine. Few scattered diverticula, left hemicolon. No intestinal obstruction pattern. Swirling of the mesenteric vessels in the mid to lower peritoneal cavity. No pneumatosis intestinalis. No pneumoperitoneum. No ascites. No intestinal wall thickening. ABDOMINAL WALL: No gross umbilical or inguinal hernias. LYMPH NODES: No specific prominent mesenteric lymph nodes. VASCULAR: No aneurysm or dissection abdominal aorta. No gross calcified plaques. PELVIC VISCERA: Not enlarged. OSSEOUS STRUCTURES: No acute fracture or listhesis in the axial skeleton. No lytic or blastic lesions. Bony pelvis and coxofemoral joints are intact. CT/CT abdomen pelvis w IV con IMPRESSION: No gross umbilical or inguinal hernias. Swirling of the mesenteric internal hernia cannot be entirely excluded. No intestinal obstruction pattern. Fleischner guidelines were followed. Electronically signed by: Unruly Latham MD 11/02/2024 10:30 AM EDT
[2024-11-02 07:55] VITALS: BP 129/90; PULSE 76; RESP 16; TEMP 36.4; O2SAT 99; BMI 20.9
--- NOTE | 2024-11-02 08:41 | ED_ITS ---
HPI - General Adult General Chief complaint: Abdominal Pain Stated complaint: swollen lower abd/ groin pain Time Seen by Provider: 11/02/24 08:13 Source: patient and RN notes reviewed Mode of arrival: ambulatory Limitations: no limitations History of Present Illness ED Provider: Janee Lerner PA-C HPI narrative: This is a 24-year-old male, with a history of Crohn's disease in remission, who presents emergency department with concerns of painful lump on the right inguinal region for the last week and a half. Patient states that he performs heavy lifting at work however states over the last several days he has had worsening pain. He states that even standing causes him to have pain. He denies any fevers, chills, abdominal pain, nausea, vomiting or diarrhea. He is able to urinate without difficulty. Denies history of similar symptoms in the past. He denies a specific episode where he lifted something and immediately felt pain. He states that the bulging and pain has only worsened. He denies taking any medications at home to treat his current pain today. No other complaints or concerns at this time. MD complaint: Hernia Onset (ago): week(s) Relieving factors: none Exacerbating factors: none Associated symptoms: denies other symptoms Treatments prior to arrival: none Related Data Previous Rx's ?Medication ?Instructions ?Recorded acetaminophen 500 mg tablet 1,000 mg (2 x 500 mg) PO Q 8H PRN 11/02/24 (Tylenol Extra Strength) pain #30 tabs docusate calcium 240 mg capsule 240 mg PO BEDTIME #30 caps 11/02/24 ibuprofen 600 mg tablet 600 mg PO Q6H PRN pain #30 t abs 11/02/24 morphine 15 mg immediate release 15 mg PO Q6H PRN torsten re #10 tabs 11/02/24 tablet polyethylene glycol 3350 17 17 g PO DAILY #119 grams 0 11/02/24 gram/dose oral powder (Miralax) Allergies Allergy/AdvReac Type Severity Reaction Status Date / Time cephalexin (From Keflex) Allergy Angioedema Verified 11/02/24 07:57 kiwi AdvReac Itching Verified 11/02/24 07:57 Review of Systems 2 Review of Systems: Constitutional : No Fever, No Chills ENT/Mouth : No sore throat, No Rhinorrhea Eyes: No Eye Pain, No Swelling, No Redness Cardiovascular : No Chest Pain, No SOB Respiratory : No Cough, No Sputum Gastrointestinal : No Nausea, No Vomiting, No Diarrhea, No abdominal Pain Genitourinary : No Dysuria, No Hematuria Musculoskeletal : No joint pain, No Myalgias, No Joint Swelling Skin : No Skin Lesions Neuro : No Weakness, No Numbness, No Headache All other systems reviewed and are negative Yes all other systems are reviewed and are negative Constitutional: Constitutional: Reports as per [facility] Past Medical History Medical History (Updated 11/02/24 @ 16:02 by LOPEZ Diaz) Reducible right inguinal hernia Social History Social History Substance Use Type: Marijuana Physical Exam ED Vital Signs: Vital Signs - 24 hr 11/02/24 07:55 11/02/24 14:32 11/02/24 15:05 Temperature 97.6 F 98.4 F Pulse Rate 76 54 121 H Respiratory Rate 16 16 18 Blood Pressure 129/90 H 102/54 L 121/65 Pulse Oximetry 99 100 100 Oxygen Delivery Method Room Air Room Air Room Air 11/02/24 16:50 11/02/24 16:55 Temperature 98.2 F Pulse Rate 16 L Respiratory Rate 14 14 Blood Pressure 124/84 Pulse Oximetry 97 Oxygen Delivery Method Room Air BMI result Body Mass Index 20.9 Const General: cooperative, comfortable and no acute distress Orientation/consciousness: patient oriented x3 Limitations: no limitations [facility]: Yes normal to inspection, Yes normocephalic and Yes atraumatic Ears: hearing grossly normal bilaterally General nose exam: Normal external nose present Face and sinus: Yes normal facial exam Mouth: Normal oral and palatal mucosa present, oropharynx normal and moist mucous membranes Throat: Yes posterior oropharynx normal Eyes General: appearance normal, both eyes and all related structures Eyelids: Yes eyelids normal Conjunctivae: conjunctivae normal Sclerae: sclerae normal Pupils: Equal, round and reactive pupils present EOM: EOMs intact bilaterally Neck Neck: Yes normal visual inspection, Yes full ROM and Yes no lymphadenopathy Lymphatic: no lymphadenopathy noted Chest Chest palpation & inspection: normal inspection of the chest Resp Effort & Inspection: normal respiratory effort and able to speak in complete sentences Auscultation: clear to auscultation bilaterally, no crackles, no rales, no rhonchi and no wheezes Cardio Rate: regular rate Rhythm: regular rhythm Heart sounds: S1 normal heart sound present and S2 normal heart sound present GI Inspection: Yes normal to inspection Other: Examination performed with Treva Fajardo RN present at all times. Patient with right inguinal hernia noted, tender to palpation, reproducible, no overlying skin changes. Skin General skin exam: no rashes or lesions noted Trauma: no lacerations or abrasions Wounds: no wounds Neuro General: patient oriented x3 and moves all extremities Cranial nerves: Yes Equal, round and reactive pupils present Extrem General: Yes normal to inspection Right upper extremity: normal to inspection Left upper extremity: normal to inspection Right lower extremity: normal to inspection Left lower extremity: normal to inspection Medications Administered Discontinued Medications Generic Name Dose Route Start Last Admin Trade Name Freq PRN Reason Stop Dose Admin Diphtheria/Tetanus/Acell Pertussis 0.5 ml 11/02/24 12:36 11/02/24 12:53 Diphth,Pertus(Acell),Tet Adult 0.5 Ml Syringe IM 11/02/24 12:37 0.5 ml .ONCE ONE Administration Hydromorphone HCl 1 mg 11/02/24 14:24 11/02/24 14:36 Hydromorphone Hcl 1 Mg/Ml Syringe IVPUSH 11/02/24 14:25 1 mg ONCE ONE Administration Protocol Acetaminophen 1,000 mg in 100 mls @ 400 mls/hr 11/02/24 08:41 11/02/24 09:21 Ofirmev IV 11/02/24 08:55 Infused ONCE ONE Infusion Sodium Chloride 1,000 mls @ 999 mls/hr 11/02/24 15:10 11/02/24 17:10 Ns IV 11/02/24 16:10 Infused .Q1H1M ONE Infusion Iohexol 100 ml 11/02/24 10:03 11/02/24 10:04 Iohexol 350 Mg/Ml 100 Ml Infus..Btl IV 11/02/24 10:04 85 ml ONCE ONE Administration Ketorolac Tromethamine 15 mg 11/02/24 12:36 11/02/24 12:53 Ketorolac Tromethamine 15 Mg/Ml Vial IVPUSH 11/02/24 12:37 15 mg ONCE ONE Administration Morphine Sulfate 4 mg 11/02/24 08:41 11/02/24 08:52 Morphine Sulfate 4 Mg/Ml Cartridge IVPUSH 11/02/24 08:42 4 mg ONCE ONE Administration Protocol Morphine Sulfate 4 mg 11/02/24 11:42 11/02/24 11:46 Morphine Sulfate 4 Mg/Ml Cartridge IVPUSH 11/02/24 11:43 4 mg ONCE ONE Administration Protocol Morphine Sulfate 4 mg 11/02/24 16:43 11/02/24 16:50 Morphine Sulfate 4 Mg/Ml Cartridge IVPUSH 11/02/24 16:44 4 mg ONCE ONE Administration Protocol Ondansetron HCl 4 mg 11/02/24 15:07 11/02/24 15:11 Ondansetron Hcl 4 Mg/2 Ml Vial IVPUSH 11/02/24 15:08 4 mg ONCE ONE Administration Medical Decision Making Medical Decision Making [facility] Narrative: This is a 24-year-old male who presents emergency department with concerns of lump in right inner groin for the last 2 weeks. On arrival, vital signs reveal slightly hypertensive at 129/90, all other vital signs within normal limits, patient with inguinal right hernia noted, unable to be reduced. Tender to palpation. Differential diagnoses include hernia, strangulated hernia, lymphadenopathy. Given level of pain, patient will be medicated with morphine and Tylenol, labs will also be ordered as well as CT abdomen and pelvis with IV contrast. 12:15 PM 11/02/2024 (Janee Lerner PA-C): Patient has been medicated with morphine x2, and Tylenol. He has had periodic improvement of pain. I discussed case with Dr. Miranda, he states that there is no surgical intervention needed at this time however stressed the importance of following up this week outpatient. I reassess patient, will medicate with Toradol 15 milligrams IV, will also get x-ray of the left hand as patient reports that he had a crush injury which occurred at work several days ago. He also has superficial linear lacerations noted along the PIP of the 2nd and 3rd digit. Decreased range of motion secondary to pain. Strong radial pulse. We will continue to closely monitor. 2:48 PM 11/02/2024 (Janee Lerner PA-C): Patient tearful, upset, stating that he is still in a lot of pain. He has been given 2 doses of morphine, Tylenol, Toradol. Will medicate with Dilaudid. I discussed with patient that if this pain is intractable, we will attempt to admit for intractable pain. However I discussed with patient that there is no emergent surgical intervention warranted at this time. We will continue to closely monitor. 4:15 PM 11/02/2024 (Janee Lerner PA-C): Discussed case with hospitalist, Kenyon Myles PA-C reached out to Dr. Miranda. It is unclear why patient is having all of this pain, in his not really sure why he is currently in his pain. I discussed case with my attending physician, Dr. Melo, who recommends continuing pain medication, as well as obtaining UA, CT NG, and lactic. 5:52 PM 11/02/2024 (Janee Lerner PA-C): UA does not appear to be infected. CT NG still pending, called over to lab, this will be done in the morning. 6:22 PM 11/02/2024 (Janee Lerner PA-C): Patient was seen by Kenyon Myles PA-C, patient does not meet admission criteria. At this point, patient can be discharged with strict return precautions. He will follow-up outpatient with the surgical service. Patient given prescriptions of ibuprofen, Tylenol, stool softener, MiraLax, morphine for severe pain. Advised to follow-up with the surgical service he understands and agrees with plan. Patient stable for discharge. Differential Diagnosis Differential Diagnoses: The differential diagnosis associated with the presentation includes See above Consult Healthcare Provider Management of the patient was discussed with: Store Merchandiser Dr. Miranda, surgery Kenyon Myles PA-C Lab Data MDM Lab Attestation statement: I reviewed the patient's lab results. Slightly leukopenic at 3.7, infection is not suspected. No evidence of anemia, chemistry with no significant electrolyte derangement. No evidence of ANTONIO, CRP and ESR within normal limits. CPK within normal limits. 11/02/24 08:51 11/02/24 08:51 Labs: Lab Results 11/02/24 11/02/24 11/02/24 Range/Units 08:51 17:03 17:48 WBC 3.7 L (4.8-10.8) X10*3/uL RBC 4.86 (4.60-5.80) X10*6/uL Hgb 14.8 (14.0-18.0) g/dl Hct 41.4 L (42.0-52.0) % MCV 85.2 (80.0-98.0) fL MCH 30.5 (27.0-33.0) pg MCHC 35.7 (31.0-36.0) g/dl RDW 12.4 (11.0-16.0) % Plt Count 260 D (160-400) X10*3/uL MPV 7.9 L (9.4-12.4) fL Immature Gran % (Auto) 0.3 (0.0-0.4) % Neut % (Auto) 53.9 (45-73) % Lymph % (Auto) 36.6 (20-40) % Monona % (Auto) 7.9 (2-11) % Eos % (Auto) 0.5 (0-4) % Baso % (Auto) 0.8 (0-2) % Lymph # (Auto) 1.4 (1.2-4.9) X10*3/uL Monona # (Auto) 0.3 (0.1-1.2) X10*3/uL Eos # (Auto) 0.0 (0.0-0.4) X10*3/uL Baso # (Auto) 0.0 (0.0-0.2) X10*3/uL Abs Immat Gran (auto) 0.01 (0.00-0.03) X10*3/uL Absolute Neuts (auto) 2.0 (2.0-8.3) x10*3/uL Absolute Nucleated RBC 0.000 (0.0-0.012) X10*3/uL Nucleated RBC % (auto) 0.0 (0.0-0.2) /100WBC ESR 4 (0-15) MM/HR Sodium 141 (135-145) mmol/L Potassium 4.1 (3.3-5.1) mmol/L Chloride 109 H (96-108) mmol/L Carbon Dioxide 24 (22-29) mmol/L Anion Gap 12 (12-20) BUN 15 (9-16) mg/dL Creatinine 0.87 (0.5-1.4) mg/dL Estim Creat Clear Calc 128.1 Estimated GFR > 60 Random Glucose 99 (60-115) mg/dL Lactic Acid 0.9 (0.5-2.0) mmol/L Calcium 9.5 (8.4-10.2) mg/dL Total Bilirubin 0.8 (0.0-1.0) mg/dL Direct Bilirubin 0.2 (0.0-0.5) mg/dL AST 20 (5-37) U/L ALT 12 (0-40) U/L Alkaline Phosphatase 54 (39-117) U/L Total Creatine Kinase 79 (38-174) U/L C-Reactive Protein < 0.04 (< or = 0.50) mg/dL Total Protein 7.2 (6.5-8.0) g/dL Albumin 4.8 (3.5-5.0) g/dL Urine Color Yellow Urine Appearance Clear Urine pH 6.5 (5.0-9.0) Ur Specific Mackey >= 1.030 H (1.005-1.025) Urine Protein Trace (Neg-Trace) mg/dL Urine Glucose (UA) Negative (Negative) mg/dL Urine Ketones 15 (Negative) mg/dL Urine Blood Negative (Negative) Urine Nitrite Negative (Negative) Ur Leukocyte Esterase Negative (Negative) Ur N gonorrhoeae DNA (PCR) NOT DETECTED (Not Detect.) Ur Chlamydia DNA (PCR) NOT DETECTED (Not Detect.) Radiology Impression Discussion of test interpretation with radiology: I have reviewed the radiologist's reading. Radiologist Impression: FINDINGS: LUNG BASES: No acute airspace disease or discrete pulmonary nodules. LIVER, GALLBLADDER, AND BILIARY TREE: Liver measures 16 cm. No focal mass. Portal veins and hepatic veins and intrahepatic portion of the IVC are patent. Gallbladder is nondistended. No pericholecystic fluid collection or gallbladder wall thickening. No intrahepatic or extrahepatic biliary ductal dilatation. PANCREAS: No focal mass. No main pancreatic ductal dilatation. No peripancreatic fluid collection. SPLEEN: 10 cm. No focal mass. ADRENAL GLANDS: No nodular lesions. KIDNEYS AND URETERS: No renal mass. No hydronephrosis. No gross nephrolithiasis. Normal enhancement pattern of the renal parenchyma. Subcentimeter cysts, right kidney.. BLADDER: Fluid-filled. GASTROINTESTINAL TRACT: Appendix is normal. Abundant stool, large intestine. Few scattered diverticula, left hemicolon. No intestinal obstruction pattern. Swirling of the mesenteric vessels in the mid to lower peritoneal cavity. No pneumatosis intestinalis. No pneumoperitoneum. No ascites. No intestinal wall thickening. ABDOMINAL WALL: No gross umbilical or inguinal hernias. LYMPH NODES: No specific prominent mesenteric lymph nodes. VASCULAR: No aneurysm or dissection abdominal aorta. No gross calcified plaques. PELVIC VISCERA: Not enlarged. OSSEOUS STRUCTURES: No acute fracture or listhesis in the axial skeleton. No lytic or blastic lesions. Bony pelvis and coxofemoral joints are intact. CT/CT abdomen pelvis w IV con IMPRESSION: No gross umbilical or inguinal hernias. Swirling of the mesenteric internal hernia cannot be entirely excluded. No intestinal obstruction pattern. Fleischner guidelines were followed. Electronically signed by: Unruly Latham MD 11/02/2024 10:30 AM EDT RP Dictated By: Unruly Cline MD Signed By: <Electronically signed by Unruly Tim MD in OV> Critical Care Time Critical Care Time Critical Care Time: Yes Total Critical Care Time: 60 Attestation: I have personally provided critical care time exclusive of time spent on separately billable procedures. Time includes review of lab data, radiology results, discussion with consultants, and monitoring for potential decompensation. Intervention performed as documented. Discharge Plan Discharge Clinical Impression: Reducible right inguinal hernia Patient Disposition: Home, Self-Care Instructions: Inguinal Hernia (ED) Additional Instructions: You were seen in the emergency department due to right groin pain. You have evidence of a reproducible right inguinal hernia. Your CT scan did not show evidence of this however your exam showed evidence of this. Please take ibuprofen and or Tylenol as needed for pain and symptoms. Ibuprofen 600 milligrams every 6 hours with food, 2 hours later take Tylenol a 1000 milligrams (take this every 8 hours) alternating between 2 these medications can help you significantly for pain. Ondansetron also known as Zofran can be helpful for nausea and vomiting. Take only as needed. Morphine as a strong pain medication, only use this as prescribed, this is a addictive medication, please be advised that this also is a sedating medication therefore do not drink or drive while taking this medication. We can not refill this medication through the emergency room. Dulcolax as a stool softener that can help soften your stool therefore you will have an easier time with bowel movements. I am also giving you MiraLax, this is a laxative to also help with your stooling. When coughing, please splint the area of discomfort as this can provide you with support. No heavy lifting until you follow-up with the surgeon. If any new or worsening symptoms occur including but not limited to worsening pain, high fevers, urinary retention, please seek emergent care. Prescriptions: New ibuprofen 600 mg tablet 600 mg PO Q6H PRN (Reason: pain) Qty: 30 0RF docusate calcium 240 mg capsule 240 mg PO BEDTIME Qty: 30 0RF acetaminophen [Tylenol Extra Strength] 500 mg tablet 1,000 mg PO Q8H PRN (Reason: pain) Qty: 30 0RF polyethylene glycol 3350 [Miralax] 17 gram/dose powder 17 g PO DAILY Qty: 119 0RF morphine 15 mg tablet 15 mg PO Q6H PRN (Reason: severe) Qty: 10 0RF Rx Instructions: Partial Fill upon patient request. Referrals: [facility] General Surgeons [Provider Group, General Surgery] Stand Alone Forms: Work/School Release Interventions: ED Discharge Assessment Last Done: 11/02/24 18:51 Discharge Date/Time: 11/02/24 18:52 Print Language: Montenegrin
--- OUTSIDE RECORDS SUMMARY | 2024-11-02 08:50 | XMS_ITS | Clinical Summary ---
Author Organization [facility] Address [address] [place], [place] [address] Phone Care Team Providers Care Mingle Operator Name Role Phone Unknown, Unknown Primary Care Provider Clint courtney Social History Tobacco Use Types Packs/Day Years Used Date Smoking Tobacco: Never Assessed Sex and Gender Information Value Date Recorded Sex Assigned at Not on file Legal Sex Male 9:36 AM EST Gender Identity Not on file Sexual Orientation Not on file Plan of Treatment Health Maintenance Due Date Last Done Comments DEPRESSION SCREENING 2014 SMOKING Hx and SMOKELESS TOBACCO SCREENING 07/09/2015 HPV VACCINES (1 - Male 3-dose series) 2017 MENINGOCOCCAL VACCINES (B) (1 of 2 - Standard) 2018 HEPATITIS C SCREENING 2020 HIV ONE-TIME SCREENING (18-65 YEARS) 2020 COVID-19 VACCINE ( season) 2023 08/13/2020, 07/22/2020 Adult Td,Tdap Booster 10/05/2032 10/05/2022, 015 HIB VACCINES Completed 07/12/2004, 10/2003, 2002, Additional history exists PNEUMOCOCCAL VACCINES (0-49 years) Aged Out 07/12/2004, 11/04/2003, 2002, Additional history exists No longer eligible based on patient's age to complete this topic MENINGOCOCCAL VACCINES (ACWY) Aged Out 01/30/2017 No longer eligible based on patient's age to complete this topic HEPATITIS A VACCINES Aged Out No long er eligible based on patient's age to complete this topic Medical Devices Not on file Care Teams Mingle Operator Relationship Specialty Start Date End Date Unknown, Unknown, PCP - General 05/02/23 Additional Source Comments The information contained in this document represents components of the legal health record. It is not the complete legal health record.[facility]
--- OUTSIDE RECORDS SUMMARY | 2024-11-02 08:50 | XMS_ITS | Encounter Summary ---
Author Organization [facility] Address [address] [place] [address] Care Team Providers Care Tank Operator Name Role Phone Marlin Lucas Primary Care Provider [phone] Encounter Details Date Type Department Care Team (Late st Contact Info) Description 07/27/2022 [place] Message [facility] Pre Surgical Evaluation [address] [place] [address] Mychart, Generic Provider [address] [place], [place] [id number] Preop Instructions for surgery 08/02/22 -Dr Zavaleta [...] on filedocumented in this encounter Care Teams Tank Operator Relationship Specialty Start Date End Date Marlin Lucas [address] [place] [phone] PCP - General Family Medicine 08/06/22 documented as of this encounter
--- OUTSIDE RECORDS SUMMARY | 2024-11-02 08:50 | XMS_ITS | Clinical Summary ---
Author Organization [facility] Address [address] [place] [address] Care Team Providers Care Extraction Supervisor Name Role Phone Marlin Lucas Primary Care Provider [phone] Allergies Active Allergy Reactions Criticality Noted Date [...] 84 10/31/2023 12:08 PM EDT Temperature 36.3 C (97.3 F) 10/31/2023 12:08 PM EDT Respiratory Rate 22 10/31/2023 12:08 PM EDT Oxygen Saturation 98% 10/31/2023 12:08 PM EDT Inhaled Oxygen Concentration - - Weight 62.6 kg (138 lb) 08/07/2022 1:00 PM EDT Height 180.3 cm (5' 11 ) 08/07/2022 1:00 PM EDT Body Mass Index 19.25 08/07/2022 1:00 PM EDT Plan of Treatment Health Maintenance Due Date Last Done Comments HIV Screening 2002 Hepatitis C Screening 2002 Pneumococcal Vaccine: Pediatric (0-5 Years) and At-Risk Patients (6-50 Years) (1 of 1 - PPSV23, PCV20, or PCV21) 2008 07/12/2004, 11/04/2003, 2002, Additional history exists HPV Vaccines (1 - Male 3-dose series) 2017 Alcohol/Substance Use Screening 02/26/2024 Depression Screening and Follow-Up 02/26/2024 Social Drivers of Health Annual Screening 02/26/2024 COVID-19 Vaccine (3 - season) 2024 08/13/2020, 07/22/2020 Influenza Vaccine (#1) 2024 DTaP,Tdap,and Td Vaccines (8 - Td or Tdap) 10/05/2032 10/05/2022, 01/26/2015, 09/17/2007, Additional history exists RSV Vaccine (60+ years old and patients) (1 - 1-dose 75+ series) 2077 Hepatitis B Vaccines Completed 05/29/2004, 2002, 2002 Varicella Vaccines Completed 01/26/2015, 12/14/2003 Meningococcal Vaccine Aged Out 01/30/2017 No katarzyna genaro eligible based on patient's age to complete this topic Insurance [employer] HSNO/FREE CARE Advance Directives * Full Code (Latest Code Status on File) Date Activated Date Inactivated Comments 08/02/2022 10:54 AM 08/02/2022 8:29 PM Care Teams Extraction Supervisor Relationship Specialty Start Date End Date Marlin Lucas [address] [place] [phone] PCP - General Family Medicine 08/06/22
[2024-11-02 08:55] LABS: MANUAL DIFF FLAG NO
[2024-11-02 08:59] LABS: Hematocrit 41.4 % (42.0-52.0); Hemoglobin 14.8 g/dl (14.0-18.0); Imm Gran Abs Auto 0.01 X10*3/uL (0.00-0.03); Imm Gran Pct Auto 0.3 % (0.0-0.4); Lymphocytes Absolute Auto 1.4 X10*3/uL (1.2-4.9); Mean Corpuscular HGB Conc 35.7 g/dl (31.0-36.0); Mean Corpuscular Hemoglobin 30.5 pg (27.0-33.0); Mean Corpuscular Volume 85.2 fL (80.0-98.0); NRBC Abs Auto 0.000 X10*3/uL (0.0-0.012); NRBC Pct Auto 0.0 /100WBC (0.0-0.2); Platelet Count 260 X10*3/uL (160-400); Red Blood Count 4.86 X10*6/uL (4.60-5.80); White Blood Count 3.7 X10*3/uL (4.8-10.8)
[2024-11-02 09:31] LABS: Alanine Aminotransferase 12 U/L (0-40); Albumin Level 4.8 g/dL (3.5-5.0); Alkaline Phosphatase 54 U/L (39-117); Anion Gap 12 (12-20); Aspartate Amino Transferase 20 U/L (5-37); Blood Urea Nitrogen 15 mg/dL (9-16); Calcium 9.5 mg/dL (8.4-10.2); Carbon Dioxide 24 mmol/L (22-29); Chloride 109 mmol/L (96-108); Creatinine Clr Calc Pharmacy 128.1; Estimated Glomerular Filt Rate > 60; Potassium 4.1 mmol/L (3.3-5.1); Sodium 141 mmol/L (135-145); Total Protein 7.2 g/dL (6.5-8.0)
[2024-11-02] MEDS: iohexoL 350 MG/ML 100 ML INFUS..BTL IV (10:04)
--- NOTE | 2024-11-02 12:26 | P.CONGS_ITS ---
History of Present Illness Consult details Consult date: 11/02/24 Narrative: 24-year-old male referred for right inguinal hernia. He has had this reducible mass in the right groin for months but he says that for the past 10 days, this has been getting more painful. He says he does a lot of lifting at home. He does not have any primary care physician anymore so he came to the emergency room today He denies any GI complaints. He denies any nausea or vomiting. Denies any diarrhea He does have a known history of Crohn's disease. He said he has not been on medications for a while now. Review of Systems 2 Constitutional: Constitutional: Denies chills and Denies fever(s) Cardiovascular: Cardiovascular: Denies chest pain, Denies dyspnea and Denies dyspnea on exertion Respiratory: Respiratory: Denies cough, Denies dyspnea and Denies dyspnea on exertion Gastrointestinal: Gastrointestinal: Denies hematochezia and Denies change in bowel habits Genitourinary: Genitourinary: Denies hematuria and Denies difficulty urinating Musculoskeletal: Musculoskeletal: Denies back pain and Denies limited range of motion Neurologic: Denies focal weakness and Denies convulsions Psychiatric: Psychiatric: Denies depression and Denies mood swings [facility] Past Medical History Medical History (Updated 11/02/24 @ 16:02 by LOPEZ Diaz) Reducible right inguinal hernia Social History Social History Substance Use Type: Marijuana Meds Allergies Allergy/AdvReac Type Severity Reaction Status Date / Time cephalexin (From Keflex) Allergy Angioedema Verified 11/02/24 07:57 kiwi AdvReac Itching Verified 11/02/24 07:57 Physical Exam 2 Vital Signs: Vital Signs: Last Vital Signs Temp 97.6 F 11/02/24 07:55 Pulse 76 11/02/24 07:55 Resp 16 11/02/24 07:55 BP 129/90 H 11/02/24 07:55 Pulse Ox 99 11/02/24 07:55 O2 Del Method Room Air 11/02/24 07:55 BMI result Body Mass Index 20.9 Const: General: comfortable and no acute distress O rientation/consciousness: patient oriented x3 Neck: Neck: Yes no lymphadenopathy Resp: Effort & Inspection: normal respiratory effort Cardio: Rhythm: regular rhythm GI: Other: Reducible right inguinal hernia, obvious with Valsalva, some tenderness in the area Inspection: No visible pulsation Palpation (GI): Soft to palpation, nontender and no guarding Neuro: General: patient oriented x3 Results Labs 11/02/24 08:51 11/02/24 08:51 Labs: Abnormal lab results 11/02/24 Range/Units 08:51 WBC 3.7 L (4.8-10.8) X10*3/uL Hct 41.4 L (42.0-52.0) % MPV 7.9 L (9.4-12.4) fL Chloride 109 H (96-108) mmol/L Short CBC 11/02/24 Range/Units 08:51 WBC 3.7 L (4.8-10.8) X10*3/uL Hgb 14.8 (14.0-18.0) g/dl Hct 41.4 L (42.0-52.0) % Plt Count 260 D (160-400) X10*3/uL BMP 11/02/24 08:51 Sodium 141 Potassium 4.1 Chloride 109 H Carbon Dioxide 24 BUN 15 Creatinine 0.87 Calcium 9.5 Cardiac Enzymes 11/02/24 Range/Units 08:51 Total Creatine Kinase 79 (38-174) U/L Liver Function 11/02/24 Range/Units 08:51 Total Bilirubin 0.8 (0.0-1.0) mg/dL Direct Bilirubin 0.2 (0.0-0.5) mg/dL AST 20 (5-37) U/L ALT 12 (0-40) U/L Alkaline Phosphatase 54 (39-117) U/L Albumin 4.8 (3.5-5.0) g/dL All other labs normal. Assessment and Plan (1) Reducible right inguinal hernia: Status: Acute He has a reducible right inguinal hernia. Exam is otherwise benign. I have reviewed his CAT scan and this mentions some question of whirling of the mesentery. However, he does not present with a any obstructive pattern. He does not have any nausea or vomiting. He does not have any other abdominal pain. There is no dilatation of the small bowel loops. I told him that I can see him in the office to schedule for repair of right inguinal hernia. He seems to understand the plan well . If he had does have worsening of symptoms, he should come back to the emergency room and he understands this as well. I have discussed the above with the emergency room provider. Procedures Date of Service Date of Service: 11/05/24
[2024-11-02] MEDS: Diphth,Pertus(ACell),Tet Adult 0.5 ML SYRINGE IM (12:53)
[2024-11-02 14:32] VITALS: BP 102/54; PULSE 54; RESP 16; TEMP 36.9; O2SAT 100
[2024-11-02 15:05] VITALS: BP 121/65; PULSE 121; RESP 18; O2SAT 100
[2024-11-02 16:50] VITALS: RESP 14
[2024-11-02 16:55] VITALS: BP 124/84; PULSE 16; RESP 14; TEMP 36.8; O2SAT 97
--- NOTE | 2024-11-02 16:57 | PC.NURSE ---
Patient pre void bladder scan 469 Patient no longer nauseous at this time but still having pain rated 8/10
[2024-11-02 17:14] LABS: Appearance Urine Clear; Glucose Urine UA Negative (Negative); PH 6.5 (5.0-9.0); Specific Gravity - Urine >= 1.030 (1.005-1.025)
[2024-11-02 18:51] VITALS: BP 124/84; PULSE 16; RESP 14; TEMP 36.8; O2SAT 97
[2024-11-02 22:00] LABS: CT PCR Urine NOT DETECTED (Not Detect.); NG PCR Urine NOT DETECTED (Not Detect.)
== END 2024-11-02 18:52 | disposition home or self-care (01) ==
PROVIDERS: Physician Assistant Medical; Emergency Provider Emergency Medicine
DX: K40.90 Unilateral inguinal hernia, without obstruction or gangrene, not specified as recurrent (principal); R19.00 Intra-abdominal and pelvic swelling, mass and lump, unspecified site; K50.90 Crohn's disease, unspecified, without complications
CPT/HCPCS: 36415; 73130; 74177; 80048; 80076; 81003; 82550; 83605; 85025; 85652; 86140; 87491; 87591; 90471; 90715; 96361; 96365; 96375; 96376; 99285; J0131; J1171; J1885; J2270; J2405; Q9967

== ENCOUNTER → 2024-11-02 08:02 | Outpatient (BNV) | payer OTHER, SELFPAY | PROVIDERS: Emergency Provider Emergency Medicine; Visit Provider Surgery | DX: K40.90 Unilateral inguinal hernia, without obstruction or gangrene, not specified as recurrent (principal) | CPT/HCPCS: 99283 ==

== ENCOUNTER → 2024-11-02 08:41 | Outpatient (BNV) | payer OTHER, SELFPAY | PROVIDERS: Emergency Provider Emergency Medicine; Visit Provider Radiology Diagnostic Radiology | DX: K40.30 Unilateral inguinal hernia, with obstruction, without gangrene, not specified as recurrent (principal); S67.22XA Crushing injury of left hand, initial encounter | CPT/HCPCS: 73130; 74177 ==

== ENCOUNTER 2024-11-21 22:49 | Inpatient (IN) | payer OTHER, SELFPAY ==
--- NOTE | ~2024-11-21 | CT_ITS ---
CLINICAL HISTORY: right inguinal hernia worse pain sbo? Oral and IV contrast study CT abdomen and pelvis with contrast Comparison: CT abdomen and pelvis 11/02/2024 Findings: The lung bases are clear. There are no mass lesions within liver spleen pancreas kidneys or glands. There is new mild bilateral hydronephrosis and new mild bilateral hydroureters There is there is significant enlargement of a fatty right inguinal hernia. The inferior margin of the cecum partially extends into the right inguinal ring. This is new when compared to prior exam. There is no evidence for strangulation. There is moderate colonic fecal load. There is nondistended small bowel. No evidence for bowel obstruction There is new moderate bladder distention. Normal appendix. Few scattered colonic diverticula no evidence for acute diverticulitis. There is new mild distention of the stomach. There is new wall thickening of the pylorus and proximal duodenum The bones are intact. IMPRESSION: Significant enlargement of the fatty right inguinal hernia New extension of the inferior margin of the cecum which extends partially into the right inguinal ring. There is no evidence for strangulation. New moderate bladder distention and new mild bilateral hydronephrosis and hydroureters most likely secondary to the bladder distention, follow-up renal ultrasound following voiding or decompression of the bladder would be recommended to document resolution New mild distention of the stomach and new nonspecific wall thickening of the pylorus and proximal duodenum which may be due to incomplete distention versus developing peptic ulcer disease can not exclude underlying lesion follow-up fluoroscopic upper GI recommended This document has been electronically signed by: Harley Friedman MD on 11/22/2024 05:22:16
[2024-11-21 22:54] VITALS: BP 145/64; PULSE 83; RESP 20; TEMP 36.7; O2SAT 98; BMI 21.2
--- OUTSIDE RECORDS SUMMARY | 2024-11-21 23:21 | XMS_ITS | Encounter Summary ---
Author Organization [facility] Address [address] [place] [address] Care Team Providers Care Scrap Breaker Name Role Phone Umer Davis MD Primary Care Provider [phone] Reason for Visit * Reason Onset Date Comments Advice Only 11/18/2024 Surgery Encounter Details Date Type Department Care Team ([facility] st Contact Info) Description 11/18/2024 Telephone Bariatric Surgery - [address] [place] [phone] Stephanie Pope MD [address] [place] [phone] Social History Tobacco Use Types Packs/Day Years Used Date Smoking Tobacco: Never Assessed Sex and Gender Information Value Date Recorded Sex Assigned at Not on file Legal Sex Male 12:56 PM EDT Gender Identity Not on file Sexual Orientation Not on file documented as of this encounter Progress Notes * Olga Krishnamurthy MA - 11/19/2024 4:15 PM EDT We had a cancellation for 12/03/24 - I will call and see if he wants to move his surgery up to the week before. Patient's mailbox is full and cannot accept any messages at this time - I will try to call again tomorrow. * Edilma Purcell - 11/18/2024 10:17 AM EDT Patient's mom called to see if patient could get in sooner for surgery. He is in a lot of pain and has been to ER and nothing has been done to help with the pain. Please follow up with patient. documented in this encounter Plan of Treatment Upcoming Encounters Date Type Department Care Team (Late st Contact Info) Description 12/04/2024 3:00 PM EDT Pre-Admission Testing [facility] Pre-Admission Testing [address] [place] [phone] 12/11/2024 10:00 AM EDT Hospital Encounter [facility] Main OR [address] [place] [phone] Stephanie Pope MD [address] [place] [phone] 12/11/2024 10:00 AM EDT - 12/11/2024 12:00 PM EDT Surgery [facility] Main OR [address] [place] [phone] Stephanie Pope MD [address] [place] [phone] DAVINCI REPAIR OF RIGHT INGUINAL HERNIA WITH MESH, POSSIBLE LEFT SIDE [83016 (CPT )] 12/28/2024 8:45 AM EST Office Visit Bariatric Surgery - [place] [address] [facility] [address] [place] [phone] Stephanie Pope MD [address] [place] [phone] Scheduled Procedures Name Priority Associated Diagnoses Date/Ti me REPAIR HERNIA INGUINAL ROBOT Right inguinal hernia 12/11/2024 10:00 AM EDT documented as of this encounter Visit Diagnoses Not on filedocumented in this encounter Care Teams Scrap Breaker Relationship Specialty Start Date End Date Umer Davis MD [address] [address] PCP - General Internal Medicine 11/04/24 documented as of this encounter
--- OUTSIDE RECORDS SUMMARY | 2024-11-21 23:21 | XMS_ITS | Encounter Summary ---
Author Organization [facility] Address [address] [place] [address] Care Team Providers Care Category Manager Name Role Phone Marlin Lucas Primary Care Provider [phone] Encounter Details Date Type Department Care Team (Late st Contact Info) Description 07/27/2022 Dizzion Message [facility] Pre Surgical Evaluation [address] [place] [address] Mychart, Generic Provider [address] [place], [place] [phone] Preop Instructions for surgery 08/02/22 -Dr Zavaleta [...] on filedocumented in this encounter Care Teams Category Manager Relationship Specialty Start Date End Date Marlin Lucas [address] [place] [phone] PCP - General Family Medicine 08/06/22 documented as of this encounter
--- OUTSIDE RECORDS SUMMARY | 2024-11-21 23:21 | XMS_ITS | Clinical Summary ---
Author Organization [facility] Address [address] [place] [address] Care Team Providers Care Beam Dyer Name Role Phone Marlin Lucas Primary Care Provider [phone] Allergies Active Allergy Reactions Criticality Noted Date [...] 10:54 AM 08/02/2022 8:29 PM Care Teams Beam Dyer Relationship Specialty Start Date End Date Marlin Lucas [address] [place] [phone] PCP - General Family Medicine 08/06/22
--- OUTSIDE RECORDS SUMMARY | 2024-11-21 23:21 | XMS_ITS | Clinical Summary ---
Author Organization [address] [facility] Address [address] [place] [address] Phone Care Team Providers Care Mac Artist Name Role Phone Umer Davis MD Primary Care Provider [phone] Allergies Active Allergy Reactions Criticality Noted Date Comments Cephalexin Rash High 08/07/2022 S/p surgery abx. Kiwi Itching 07/27/2022 Itchy back of throat Medications ondansetron ODT (ZOFRAN-ODT) 4 mg disintegrating tablet Let 1 tablet dissolve under the tongue three times daily as needed for nausea or vomiting. 10 tablet 11/19/19 25 Active Problems Problem Noted Date Diagnosed Date Right inguinal hernia 11/10/2024 Encounters Date Type Department Care Team Description 11/18/2024 Telephone [address] [phone] Stephanie Pope MD 11/11/2024 6:10 AM EDT - 11/11/2024 7:13 AM EDT Emergency [facility] Emergency [address] [place] [phone] Rosalia Clancy MD Nausea and vomiting, unspecified vomiting type (Primary Dx); Unilateral recurrent inguinal hernia without obstruction or gangrene Discharge Disposition: Home or Self Care 11/10/2024 11:30 AM EDT Consult Bariatric [facility] [address] [phone] Stephanie Pope MD Right inguinal hernia (Primary Dx) from Last 3 Months Social History Tobacco Use Types Packs/Day Years Used Date Smoking Tobacco: Never Assessed Sex and Gender Information Value Date Recorded Sex Assigned at Not on file Legal Sex Male 12:56 PM EDT Gender Identity Not on file Sexual Orientation Not on file Last Filed Vital Signs Vital Sign Reading Time Taken Comments Blood Pressure 117/99 11/11/2024 5:30 AM EDT Pulse 60 11/11/2024 5:30 AM EDT Temperature 37.1 C (98.7 F) 11/11/2024 5:30 AM EDT Respiratory Rate 18 11/11/2024 5:30 AM EDT Oxygen Saturation 98% 11/11/2024 5:30 AM EDT Inhaled Oxygen Concentration - - Weight 68.9 kg (152 lb) 11/11/2024 5:30 AM EDT Height 180.3 cm (5' 11 ) 11/11/2024 5:30 AM EDT Body Mass Index 21.2 11/11/2024 5:30 AM EDT Plan of Treatment Upcoming Encounters Date Type Department Care Team (Late st Contact Info) Description 12/04/2024 3:00 PM EDT Pre-Admission Testing [facility] Pre-Admission Testing [address] [place] [phone] 12/11/2024 10:00 AM EDT Hospital Encounter [facility] [place] [address] [place] [phone] Stephanie Pope MD [address] [place] [phone] 12/11/2024 10:00 AM EDT - 12/11/2024 12:00 PM EDT Surgery [facility] Main OR [address] [place] [phone] Stephanie Pope MD [address] [place] [phone] DAVINCI REPAIR OF RIGHT INGUINAL HERNIA WITH MESH, POSSIBLE LEFT SIDE [87127 (CPT )] 12/28/2024 8:45 AM EST Office Visit Bariatric Surgery [facility] [address] [phone] Stephanie Pope MD [facility] [place] [phone] Scheduled Procedures Name Priority Associated Diagnoses Date/Ti me REPAIR HERNIA INGUINAL ROBOT Right inguinal hernia 12/11/2024 10:00 AM EDT Health Maintenance Due Date Last Done Comments HPV Vaccines (1 - Male 3-dos e series) 2017 Meningococcal B Vaccine (1 o f 2 - Standard) 2018 DTaP,Tdap,and Td Vaccines (1 - Tdap) 2021 Hepatitis B Vaccines (1 of 3 - 19+ 3-dose series) 2021 Depression Screening 02/26/2024 COVID-19 Vaccine (1 - 2023-2 5 season) 2024 Influenza Vaccine (#1) 2024 HIV Screening 11/04/2024 Hepatitis C Screening 11/04/2024 Social Influencers of Health Screening 11/04/2024 RSV Immunization Adult Patie nts (1 - 1-dose 75+ series) 2077 HIB Vaccines Aged Out No longer eligi ble based on patient's age to complete this topic Hepatitis A Vaccines Aged Out No long er eligible based on patient's age to complete this topic IPV Vaccines Aged Out No longer eligi ble based on patient's age to complete this topic MMR Vaccines Aged Out No longer eligi ble based on patient's age to complete this topic Meningococcal ACWY Vaccine Aged Out N o longer eligible based on patient's age to complete this topic Pneumococcal Vaccine: Pediat rics (0 to 5 Years) and At-Risk Patients (6 to 49 Years) Aged Out No longer eligible b ased on patient's age to complete this topic RSV Immunization Patients Un nabeel 20 months Aged Out No longer eligible b ased on patient's age to complete this topic Varicella Vaccines Aged Out No longer eligible based on patient's age to complete this topic Procedures Procedure Name Priority Date/Time Associated Diagnosis Comments MAGNESIUM Add-On 11/11/2024 5:32 AM EDT CBC WITH AUTO DIFFERENTIAL STAT 11/11/2024 5:32 AM EDT LIPASE STAT 11/11/2024 5:32 AM EDT COMPREHENSIVE METABOLIC PANEL STAT 11/11/2024 5:32 AM EDT CBC AND DIFFERENTIAL STAT 11/11/2024 5:32 AM EDT from Last 3 Months Results * CBC auto differential (11/11/2024 5:32 AM EDT) [facility] WBC 6.2 4.8 - 10.8 K/mcL LAB HEMETOLOGY METHOD 11/11/2024 5:41 AM EDT [facility] RBC 5.10 4.50 - 5.50 M/mcL LAB HEMETOLOGY METHOD 11/11/2024 5:41 AM [facility] Hemoglobin 15.2 13.5 - 17.5 g/dL LAB HEMETOLOGY METHOD 11/11/2024 5:41 AM [facility] Hematocrit 44.6 42.0 - 54.0 % LAB HEMETOLOGY METHOD 11/11/2024 5:41 AM [facility] MCV 87.8 79.0 - 98.0 FL LAB HEMETOLOGY METHOD 11/11/2024 5:41 AM [facility] MCH 29.9 27.0 - 32.0 pcg LAB HEMETOLOGY METHOD 11/11/2024 5:41 AM [facility] MCHC 34.1 32.0 - 37.0 g/dL LAB HEMETOLOGY METHOD 11/11/2024 5:41 AM [facility] RDW 12.4 11.0 - 15.0 % LAB HEMETOLOGY METHOD 11/11/2024 5:41 AM [facility] Platelets 311 130 - 400 K/mcL LAB HEMETOLOGY METHOD 11/11/2024 5:41 AM [facility] MPV 8.0 7.0 - 11.0 FL LAB HEMETOLOGY METHOD 11/11/2024 5:41 AM [facility] NRBC 0.0 <1.0 % LAB HEMETOLOGY METHOD 11/11/2024 5:41 AM [facility] NRBC Absolute 0.00 <0.10 K/mcL LAB HEMETOLOGY METHOD 11/11/2024 5:41 AM [facility] Neutrophils Relative 42.9 % LAB HEMETOLOGY METHOD 11/11/2024 5:41 AM [facility] Lymphocytes Relative 45.6 % LAB HEMETOLOGY METHOD 11/11/2024 5:41 AM [facility] Monocytes Relative 9.5 % LAB HEMETOLOGY METHOD 11/11/2024 5:41 AM [facility] Eosinophils Relative 1.1 % LAB HEMETOLOGY METHOD 11/11/2024 5:41 AM [facility] Basophils Relative 0.6 % LAB HEMETOLOGY METHOD 11/11/2024 5:41 AM [facility] Immature Granulocytes Relative 0.3 % LAB HEMETOLOGY METHOD 11/11/2024 5:41 AM [facility] Neutrophils Absolute 2.64 1.50 - 7.00 K/mcL LAB HEMETOLOGY METHOD 11/11/2024 5:41 AM [facility] Lymphocytes Absolute 2.82 1.00 - 5.00 K/mcL LAB HEMETOLOGY METHOD 11/11/2024 5:41 AM [facility] Monocytes Absolute 0.59 0.20 - 1.00 K/mcL LAB HEMETOLOGY METHOD 11/11/2024 5:41 AM [facility] Eosinophils Absolute 0.07 0.00 - 0.50 K/mcL LAB HEMETOLOGY METHOD 11/11/2024 5:41 AM EDT [facility] Basophils Absolute 0.04 0.00 - 0.20 K/mcL LAB HEMETOLOGY METHOD 11/11/2024 5:41 AM EDT [facility] Immature Granulocytes Absolute 0.02 0.00 - 0.03 K/mcL LAB HEMETOLOGY METHOD 11/11/2024 5:41 AM EDT [facility] Blood Venous blood specimen / Unknown Venipuncture / Unknown 11/11/2024 5:32 AM EDT 11/11/2024 5:37 AM EDT Yannick Middleton MD LAB BLOOD ORDERABLES Final Res ult Performing Organization Address City/[facility]/ZIP Co de Phone Number [facility] [address] [place] [address], [place] [phone] * Magnesium (11/11/2024 5:32 AM EDT) Magnesium 2.1 1.9 - 2.6 mg/dL LAB CHEMISTRY METHOD 11/11/2024 7:02 AM EDT [facility] Blood Venous blood specimen / Unknown Venipuncture / Unknown 11/11/2024 5:32 AM EDT 11/11/2024 5:37 AM EDT Rosalia Clancy MD LAB BLOOD ORDERABLES Final Res ult [facility] [address] [place] [address], [place] [phone] * Lipase (11/11/2024 5:32 AM EDT) Lipase 24 13 - 75 unit/L LAB CHEMISTRY METHOD 11/11/2024 6:00 AM EDT [facility] Blood Venous blood specimen / Unknown Venipuncture / Unknown 11/11/2024 5:32 AM EDT 11/11/2024 5:37 AM EDT us Yannick Middleton MD LAB BLOOD ORDERABLES Final Res ult [facility] [address] [place] [address], [place] [phone] * Comprehensive metabolic panel (11/11/2024 5:32 AM EDT) Sodium 140 133 - 145 mmol/L LAB CHEMISTRY METHOD 11/11/2024 6:00 AM [facility] Potassium 3.7 3.5 - 5.5 mmol/L LAB CHEMISTRY METHOD 11/11/2024 6:00 AM [facility] Chloride 106 96 - 110 mmol/L LAB CHEMISTRY METHOD 11/11/2024 6:00 AM [facility] CO2 27 21 - 32 mmol/L LAB CHEMISTRY METHOD 11/11/2024 6:00 AM [facility] Anion Gap 7 3 - 11 LAB CHEMISTRY METHOD 11/11/2024 6:00 AM [facility] Glucose 77 70 - 100 mg/dL LAB CHEMISTRY METHOD 11/11/2024 6:00 AM [facility] BUN 15 5 - 25 mg/dL LAB CHEMISTRY METHOD 11/11/2024 6:00 AM [facility] Creatinine 0.92 0.70 - 1.30 mg/dL LAB CHEMISTRY METHOD 11/11/2024 6:00 AM [facility] eGFR 121 >=60 mL/min/1. 73m2 LAB CHEMISTRY METHOD 11/11/2024 6:00 AM [facility] Comment:Calculation based on the Chronic Kidney Disease Epidemiology Collaboration (CKD-EPI) equation refit without adjustment for race. BUN/Creatinine Ratio 16.3 LAB CHEMISTRY METHOD 11/11/2024 6:00 AM [facility] Calcium 9.7 8.5 - 10.5 mg/dL LAB CHEMISTRY METHOD 11/11/2024 6:00 AM EDT [facility] AST (SGOT) 12 10 - 42 unit/L LAB CHEMISTRY METHOD 11/11/2024 6:00 AM [facility] ALT (SGPT) 18 10 - 60 unit/L LAB CHEMISTRY METHOD 11/11/2024 6:00 AM EDT [facility] Alkaline Phosphatase 77 42 - 121 unit/L LAB CHEMISTRY METHOD 11/11/2024 6:00 AM EDT [facility] Total Protein 7.2 6.0 - 8.0 g/dL LAB CHEMISTRY [facility] Albumin 4.4 3.2 - 5.0 g/dL LAB CHEMISTRY METHOD 11/11/2024 6:00 AM [facility] Total Bilirubin 0.3 0.0 - 1.4 mg/dL LAB CHEMISTRY METHOD 11/11/2024 6:00 AM EDT [facility] Blood Venous blood specimen / Unknown Venipuncture / Unknown 11/11/2024 5:32 AM EDT 11/11/2024 5:37 AM EDT us Yannick Middleton MD LAB BLOOD ORDERABLES Final Res ult [facility] [address] [place] [address], from Last 3 Months Insurance [facility] Care Teams Mac Artist Relationship Specialty Start Date End Date Umer Davis MD [address] [address] PCP - General Internal Medicine 11/04/24
--- OUTSIDE RECORDS SUMMARY | 2024-11-21 23:21 | XMS_ITS | Clinical Summary ---
Author Organization [facility] Address [address] [place], [place] [phone] Phone Care Team Providers Care Hr Assistant Name Role Phone Unknown, Unknown Primary Care [...] 2020 HIV ONE-TIME SCREENING (18-65 YEARS) 2020 INFLUENZA VACCINE (#1) 2024 COVID-19 VACCINE ( season) 2024 08/13/2020, 07/22/2020 Adult Td,Tdap Booster 10/05/2032 10/05/2022, [...] Medical Devices Not on file Care Teams Hr Assistant Relationship Specialty Start Date End Date Unknown, Unknown, MD PCP - General 05/02/23 Additional Source Comments The information contained in this document represents components of the legal health record. It is not the complete legal health record.[facility]
[2024-11-21 23:31] LABS: MANUAL DIFF FLAG NO
[2024-11-21 23:32] LABS: Hematocrit 39.8 % (42.0-52.0); Hemoglobin 14.5 g/dl (14.0-18.0); Imm Gran Abs Auto 0.02 X10*3/uL (0.00-0.03); Imm Gran Pct Auto 0.3 % (0.0-0.4); Lymphocytes Absolute Auto 2.6 X10*3/uL (1.2-4.9); Mean Corpuscular HGB Conc 36.4 g/dl (31.0-36.0); Mean Corpuscular Hemoglobin 30.7 pg (27.0-33.0); Mean Corpuscular Volume 84.1 fL (80.0-98.0); NRBC Abs Auto 0.000 X10*3/uL (0.0-0.012); NRBC Pct Auto 0.0 /100WBC (0.0-0.2); Platelet Count 283 X10*3/uL (160-400); Red Blood Count 4.73 X10*6/uL (4.60-5.80); White Blood Count 6.8 X10*3/uL (4.8-10.8)
[2024-11-21 23:48] LABS: Alanine Aminotransferase 13 U/L (0-40); Albumin Level 4.9 g/dL (3.5-5.0); Alkaline Phosphatase 62 U/L (39-117); Anion Gap 11 (12-20); Aspartate Amino Transferase 20 U/L (5-37); Blood Urea Nitrogen 17 mg/dL (9-16); Calcium 9.8 mg/dL (8.4-10.2); Carbon Dioxide 25 mmol/L (22-29); Chloride 108 mmol/L (96-108); Creatinine Clr Calc Pharmacy 122.8; Estimated Glomerular Filt Rate > 60; Potassium 3.9 mmol/L (3.3-5.1); Sodium 140 mmol/L (135-145); Total Protein 7.2 g/dL (6.5-8.0)
[2024-11-22] VITALS (18 sets, daily range): BP systolic 97–146; BP diastolic 41–81; PULSE 45–89; RESP 16–22; TEMP 36.1–36.9; O2SAT 98–100; BMI 21.8
--- NOTE | 2024-11-22 00:35 | PC.NURSE ---
Assumed care of pt, presents with right groin pain, pt was seen in emergency department x1 week ago for a hernia, pt has scheduled surgery for the hernia in November pt thinks the hernia may have doubled in size since, states 10 pain with movement, but rest pain is minimal. aaox4, resting comfortably in the bed
--- NOTE | 2024-11-22 01:19 | ED_ITS ---
HPI - General Adult General Chief complaint: Abdominal Pain Stated complaint: lower abd pain Time Seen by Provider: 11/21/24 23:52 Source: patient Limitations: no limitations History of Present Illness ED Provider: Ellyn Bell PA-C HPI narrative: 24-year-old male with a history of Crohn's disease in remission, with a known right-sided reducible inguinal hernia, presents with pain at the hernia site. Patient was seen in the emergency department on November 02, at that time of his initial assessment, he had been noting a painful lump in the right inguinal region for almost 2 weeks. Patient does perform heavy lifting on a regular basis. Patient was seen by the surgical service, the plan was for him to follow up as an outpatient, and schedule elective repair of the hernia. Patient states he can not void or defecate without extreme pain within the right inguinal region. Patient states his bowel protrudes through the abdominal wall with minimal activity. Patient denies abdominal distention, inability to have a bowel movement or pass flatus, no active nausea vomiting. Related Data Previous Rx's ?Medication ?Instructions ?Recorded acetaminophen 500 mg tablet 1,000 mg (2 x 500 mg) PO Q 8H PRN 11/02/24 (Tylenol Extra Strength) pain #30 tabs ibuprofen 600 mg tablet 600 mg PO Q6H PRN pain #30 t abs 11/02/24 Allergies Allergy/AdvReac Type Severity Reaction Status Date / Time cephalexin (From Keflex) Allergy Angioedema Verified 11/21/24 22:56 kiwi AdvReac Itching Verified 11/21/24 22:56 Review of Systems 2 Review of Systems: Yes all other systems are reviewed and are negative Constitutional: Constitutional: Denies fatigue and Denies fever(s) Cardiovascular: Cardiovascular: Denies chest pain and Denies dyspnea Respiratory: Respiratory: Denies dyspnea Gastrointestinal: Gastrointestinal: Reports abdominal pain, Denies bloating, Denies constipation, Denies nausea and Denies vomiting Endocrine: Endocrine: Denies fatigue PMFSH Past Medical History Attestation statement: The following information was validated with the patient. Medical History Incarcerated inguinal hernia, bilateral Surgical History H/O nasal septoplasty Family History Family History Other Crohn's disease Social History Social History Household Members: Significant Other and Family Housing: Apartment Do you presently have visiting nurse or other home services: No Patient Tobacco Use Status: Current everyday Tobacco user Tobacco use type: Smokeless Tobacco Smoked in Last 30 Days: Yes e-Cigarette/Vaping Use: Currently Using Frequency of e-Cigarette/Vaping Use: daily Patient Interested in Nicotine Replacement: No Substance Use Type: Marijuana Have you been hit, kicked, punched, or otherwise hurt by someone within the past year? If so, by whom?: No Do you feel safe in your current relationship?: Yes Is there a partner from a previous relationship who is making you feel unsafe now?: No Are you made to feel afraid or neglected: No Advance Directives: No Advance Directives Information Provided: No (Declined) Do you have a plan to hurt others: No Plan Recently lost weight without trying: No Eating poorly because of decreased appetite: No Nutrition Risks: No Nutritional Risk Poor oral hygiene: No Physical Exam ED Vital Signs: Vital Signs - 24 hr 11/21/24 22:54 11/22/24 00:19 11/22/24 04:00 Temperature 98.0 F 98.3 F 97.8 F Pulse Rate 83 63 60 Respiratory Rate 20 18 18 Blood Pressure 145/64 H 102/57 L 112/66 Pulse Oximetry 98 99 100 Oxygen Delivery Method Room Air Room Air Room Air 11/22/24 06:07 Temperature 97.7 F Pulse Rate 72 Respiratory Rate 18 Blood Pressure 119/68 Pulse Oximetry 98 Oxygen Delivery Method Room Air BMI result Body Mass Index 21.2 Const Other: Alert, appears uncomfortable Orientation/consciousness: patient oriented x3 Resp Effort & Inspection: normal respiratory effort Cardio Other: Normal peripheral perfusion GI Other: Tender swelling noted right groin/inguinal region, superior to the penis, is soft and reducible, no overlying skin discoloration Skin Other: Warm dry no rash Neuro General: patient oriented x3, gait normal, no focal motor deficits and CN's II- XI intact bilaterally Psych Other: Cooperative Course Course Course Narrative: Time: 05:37 Date: 11/22/24 Provider: LOPEZ Pendleton Patient in physician observation for surgical consult needs. No acute events reported overnight.? No current issues or complaints. VS stable. Patient is pending his final disposition after surgical consult per Dr. Alberts. Will continue to monitor. Consultations Consultation #1: Dr Alberts.... He will see the patient 1st thing this morning, I will make him ED obs while he is pending his surgical consult Time: 05:33 Medications Administered Generic Name Dose Route Start Last Admin Trade Name Freq PRN Reason Stop Dose Admin Dextrose/Lactated Ringer's 1,000 mls @ 125 mls/hr 11/22/24 08:00 11/22/24 17:15 D5lr IVCONT 125 mls/hr .Q8H KATHRYN Administration Acetaminophen 1,000 mg in 100 mls @ 400 mls/hr 11/22/24 07:48 11/22/24 10:51 Ofirmev IV Infused Q6H PRN Infusion Pain, Mild (Pain Scale 1-3) Metoclopramide HCl 10 mg 11/22/24 17:33 11/22/24 17:42 Metoclopramide Hcl 10 Mg/2 Ml Vial IVPUSH 10 mg Q6H PRN Administration Nausea Morphine Sulfate 4 mg 11/22/24 13:39 11/22/24 13:49 Morphine Sulfate 4 Mg/Ml Cartridge IVPUSH 4 mg Q3H PRN Administration Pain, Severe (Pain Scale 7-10) Protocol Ondansetron HCl 4 mg 11/22/24 07:48 11/22/24 10:27 Ondansetron Hcl 4 Mg/2 Ml Vial IVPUSH 4 mg QID PRN Administration Nausea Sodium Chloride 3 ml 11/22/24 08:00 11/22/24 16:50 0.9 % Sodium Chloride Flush 3 Ml Syringe IVFLUSH Not Given QSHIFT KATHRYN Discontinued Medications Generic Name Dose Route Start Last Admin Trade Name Freq PRN Reason Stop Dose Admin Diatrizoate Meglum/Diatrizoate Sod 30 ml 11/22/24 04:27 11/22/24 04:29 Diatrizoate Meglumine, Sodium 30 Ml Solution PO 11/22/24 04:28 30 ml ONCE ONE Administration Fentanyl 50 mcg 11/22/24 11:07 11/22/24 16:38 Fentanyl Citrate/Pf 100 Mcg/2 Ml Vial IVPUSH 11/22/24 17:08 50 mcg Q5M PRN Administration Pain, Severe (Pain Scale 7-10) Hydromorphone HCl 0.5 mg 11/22/24 07:48 11/22/24 11:11 Hydromorphone Hcl 0.5 Mg/0.5 Ml Syringe IVPUSH 0.5 mg Q3H PRN Administration Pain, Severe (Pain Scale 7-10) Protocol Hydromorphone HCl 0.5 mg 11/22/24 11:07 11/22/24 16:47 Hydromorphone Hcl 0.5 Mg/0.5 Ml Syringe IVPUSH 11/22/24 17:08 0.5 mg Q5M PRN Administration Pain, Moderate to Severe (Pain Scale 4-10) Acetaminophen 1,000 mg in 100 mls @ 400 mls/hr 11/22/24 11:07 11/22/24 17:11 Ofirmev IV 11/22/24 17:08 Infused ONCE PRN Infusion Pain, Mild (Pain Scale 1-3) Iohexol 85 ml 11/22/24 04:26 11/22/24 04:27 Iohexol 350 Mg/Ml 100 Ml Infus..Btl IV 11/22/24 04:27 85 ml ONCE ONE Administration Morphine Sulfate 4 mg 11/22/24 01:05 11/22/24 01:27 Morphine Sulfate 4 Mg/Ml Cartridge IVPUSH 11/22/24 01:06 4 mg ONCE ONE Administration Protocol Morphine Sulfate 4 mg 11/22/24 03:57 11/22/24 04:15 Morphine Sulfate 4 Mg/Ml Cartridge IVPUSH 11/22/24 03:58 4 mg ONCE ONE Administration Protocol Ondansetron HCl 4 mg 11/22/24 04:42 11/22/24 05:00 Ondansetron Hcl 4 Mg/2 Ml Vial IVPUSH 11/22/24 04:43 4 mg ONCE ONE Administration Ondansetron HCl 4 mg 11/22/24 11:07 11/22/24 16:43 Ondansetron Hcl 4 Mg/2 Ml Vial IVPUSH 11/22/24 17:08 4 mg ONCE PRN Administration Nausea and Vomiting Medical Decision Making Medical Decision Making MDM Narrative: 24-year-old male with a history of Crohn's disease in remission, with a known right-sided reducible inguinal hernia, presents with pain at the hernia site. Patient was seen in the emergency department on November 02, at that time of his initial assessment, he had been noting a painful lump in the right inguinal region for almost 2 weeks. Patient does perform heavy lifting on a regular basis. Patient was seen by the surgical service, the plan was for him to follow up as an outpatient, and schedule elective repair of the hernia. Patient states he can not void or defecate without extreme pain within the right inguinal region. Patient states his bowel protrudes through the abdominal wall with minimal activity.Patient denies abdominal distention, inability to have a bowel movement or pass flatus, no active nausea vomiting. Problem: Known inguinal hernia History: Per patient I have considered the following differential diagnoses: Incarcerated hernia, strangulated hernia, necrotic bowel, bowel obstruction, Plan: We will be repeating the CT scan with the oral and IV contrast. Giving morphine for the pain. Screening labs already completed from triage. At this point, the hernia is soft it is reducible, there was no evidence of incarceration or strangulation. He also is not having any obstructive symptoms. I have independently reviewed the following tests: Labs: No leukocytosis, not anemic, no electrolyte abnormality CT abdomen and pelvis:IMPRESSION: Significant enlargement of the fatty right inguinal hernia New extension of the inferior margin of the cecum which extends partially into the right inguinal ring. There is no evidence for strangulation. New moderate bladder distention and new mild bilateral hydronephrosis and hydroureters most likely secondary to the bladder distention, follow-up renal ultrasound following voiding or decompression of the bladder would be recommended to document resolution New mild distention of the stomach and new nonspecific wall thickening of the pylorus and proximal duodenum which may be due to incomplete distention versus developing peptic ulcer disease can not exclude underlying lesion follow-up fluoroscopic upper GI recommended Differential Diagnosis Differential Diagnoses: The differential diagnosis associated with the presentation includes See medical decision making Admission/Observation Consideration of admission/observation: Escalation of care including admission/observation considered Potential need for surgical intervention Consult Healthcare Provider Management of the patient was discussed with: Fisheries Technical Officer Lab Data [facility] Lab Attestation statement: I reviewed the patient's lab results. 11/21/24 23:26 11/21/24 23:26 Labs: Lab Results 11/21/24 11/22/24 Range/Units 23:26 06:14 WBC 6.8 (4.8-10.8) X10*3/uL RBC 4.73 (4.60-5.80) X10*6/uL Hgb 14.5 (14.0-18.0) g/dl Hct 39.8 L (42.0-52.0) % MCV 84.1 (80.0-98.0) fL MCH 30.7 (27.0-33.0) pg MCHC 36.4 H (31.0-36.0) g/dl RDW 12.5 (11.0-16.0) % Plt Count 283 (160-400) X10*3/uL MPV 7.9 L (9.4-12.4) fL Immature Gran % (Auto) 0.3 (0.0-0.4) % Neut % (Auto) 52.6 (45-73) % Lymph % (Auto) 38.5 (20-40) % [place]helps % (Auto) 7.6 (2-11) % Eos % (Auto) 0.4 (0-4) % Baso % (Auto) 0.6 (0-2) % Lymph # (Auto) 2.6 (1.2-4.9) X10*3/uL [place] # (Auto) 0.5 (0.1-1.2) X10*3/uL Eos # (Auto) 0.0 (0.0-0.4) X10*3/uL Baso # (Auto) 0.0 (0.0-0.2) X10*3/uL Abs Immat Gran (auto) 0.02 (0.00-0.03) X10*3/uL Absolute Neuts (auto) 3.6 (2.0-8.3) x10*3/uL Absolute Nucleated RBC 0.000 (0.0-0.012) X10*3/uL Nucleated RBC % (auto) 0.0 (0.0-0.2) /100WBC Sodium 140 (135-145) mmol/L Potassium 3.9 (3.3-5.1) mmol/L Chloride 108 (96-108) mmol/L Carbon Dioxide 25 (22-29) mmol/L Anion Gap 11 L (12-20) BUN 17 H (9-16) mg/dL Creatinine 0.92 (0.5-1.4) mg/dL Estim Creat Clear Calc 122.8 Estimated GFR > 60 Random Glucose 94 (60-115) mg/dL Calcium 9.8 (8.4-10.2) mg/dL Total Bilirubin 0.4 (0.0-1.0) mg/dL AST 20 (5-37) U/L ALT 13 (0-40) U/L Alkaline Phosphatase 62 (39-117) U/L Total Protein 7.2 (6.5-8.0) g/dL Albumin 4.9 (3.5-5.0) g/dL Urine Color Yellow Urine Appearance Clear Urine pH 7.5 (5.0-9.0) Ur Specific [place] 1.010 (1.005-1.025) Urine Protein Negative (Neg-Trace) mg/dL Urine Glucose (UA) Negative (Negative) mg/dL Urine Ketones Negative (Negative) mg/dL Urine Blood Negative (Negative) Urine Nitrite Negative (Negative) Ur Leukocyte Esterase Negative (Negative) Urine RBC 0-2 (0-2) /HPF Urine WBC 0-5 (0-5) /HPF Ur Squamous Epith Cells 0-2 (0-2) /HPF Urine Bacteria None Seen (None Seen) Hyaline Casts 0-2 (0-2) /LPF Radiology Impression Discussion of test interpretation with radiology: I have reviewed the radiologist's reading. Discharge Plan Discharge Clinical Impression: Reducible right inguinal hernia Patient Disposition: Admitted As Inpatient Interventions: Admission Worksheet (ED) Last Done: 11/22/24 08:49 Discharge Date/Time: 11/22/24 09:37
[2024-11-22] MEDS: iohexoL 350 MG/ML 100 ML INFUS..BTL 85 ML IV (04:27)
[2024-11-22 06:21] LABS: Appearance Urine Clear; Glucose Urine UA Negative (Negative); PH 7.5 (5.0-9.0); Specific Gravity - Urine 1.010 (1.005-1.025)
--- NOTE | 2024-11-22 07:41 | PC.NURSE ---
Assumed care of pt. Pt is resting quietly in bed. MD Alberts at bedside. Pending gen surg rec
--- NOTE | 2024-11-22 07:52 | PM.HPGS ---
History of Present Illness History of Present Illness Date of Service: 11/22/24 Chief complaint: Incarcerated Bilateral Inguinal Hernia Narrative: Tab Pinedo is a 24 year old male presenting with pain in the right groin. He has a known right inguinal hernia and possible small left inguinal hernia. He was evaluated by a surgeon at [facility] and surgery scheduled however the pain over the past 8 days has increased in severity. He tried going to [facility] however the wait in the emergency department was too long therefore presented to [facility]. Exam in the ED revealed tenderness in bilateral groins right greater than left with a palpable right inguinal hernia. CT abdomen and pelvis confirmed a large fat containing right inguinal hernia with a small fat containing left inguinal hernia. The patient is admitted to the surgical service for management of the bilateral inguinal hernias with incarceration. Review of Systems Review of Systems: Yes all other systems are reviewed and are negative PMFSH Past Medical History Medical History Incarcerated inguinal hernia, bilateral Family History Family History Other Crohn's disease Surgical History Surgical History H/O nasal septoplasty Social History Social History Household Members: Significant Other and Family Housing: Apartment Do you presently have visiting nurse or other home services: No Patient Tobacco Use Status: Current everyday Tobacco user Tobacco use type: Smokeless Tobacco Smoked in Last 30 Days: Yes e-Cigarette/Vaping Use: Currently Using Frequency of e-Cigarette/Vaping Use: daily Patient Interested in Nicotine Replacement: No Substance Use Type: Marijuana Have you been hit, kicked, punched, or otherwise hurt by someone within the past year? If so, by whom?: No Do you feel safe in your current relationship?: Yes Is there a partner from a previous relationship who is making you feel unsafe now?: No Are you made to feel afraid or neglected: No Advance Directives: No Advance Directives Information Provided: No (Declined) Do you have a plan to hurt others: No Plan Recently lost weight without trying: No Eating poorly because of decreased appetite: No Nutrition Risks: No Nutritional Risk Poor oral hygiene: No Meds Allergies Allergy/AdvReac Type Severity Reaction Status Date / Time cephalexin (From Keflex) Allergy Angioedema Verified 11/21/24 22:56 kiwi AdvReac Itching Verified 11/21/24 22:56 Active Medications: Current Medications Hydromorphone HCl (Hydromorphone Hcl 0.5 Mg/0.5 Ml Syringe) 0.5 mg IVPUSH Q3H PRN; Protocol PRN Reason: Pain, Severe (Pain Scale 7-10) Vancomycin HCl 1,000 mg/ (Sodium Chloride) 270 mls @ 270 mls/hr IV PREOP ONE Stop: 11/22/24 08:47 Dextrose/Lactated Ringer's (D5lr) 1,000 mls @ 125 mls/hr IVCONT .Q8H KATHRYN Acetaminophen (Ofirmev) 1,000 mg in 100 mls @ 400 mls/hr IV Q6H PRN PRN Reason: Pain, Mild (Pain Scale 1-3) Melatonin (Melatonin 3 Mg Tablet) 6 mg PO BEDTIME PRN PRN Reason: Insomnia Ondansetron HCl (Ondansetron Hcl 4 Mg/2 Ml Vial) 4 mg IVPUSH QID PRN PRN Reason: Nausea Pharmacy Consult (Consult Rx Vancomycin Dosing) 1 each MISCELLANE DAILY PRN PRN Reason: Consult order Sodium Chloride (0.9 % Sodium Chloride Flush 3 Ml Syringe) 3 ml IVFLUSH QSHIFT KATHRYN Physical Exam Vital Signs: Vital Signs: Last Vital Signs Temp 97.7 F 11/22/24 06:07 Pulse 72 11/22/24 06:07 Resp 18 11/22/24 06:07 BP 119/68 11/22/24 06:07 Pulse Ox 98 11/22/24 06:07 O2 Del Method Room Air 11/22/24 06:07 BMI result Body Mass Index 21.2 Const: General: cooperative and no acute distress Nutritional Appearance: well nourished Orientation/consciousness: patient oriented x3 Limitations: no limitations HEENT: Head: Yes normocephalic and Yes atraumatic Ears: hearing grossly normal bilaterally Resp: Effort & Inspection: normal respiratory effort, no audible wheezes, no cough and no respiratory distress Cardio: Jugular venous distension: no JVD GI: Other: Bilateral inguinal regions are tender to palpation with no definite palpable hernia, right greater than left with tenderness. Inspection: Yes normal to inspection and No distended Palpation (GI): Soft to palpation, nontender, no guarding, not rigid and No hepatosplenomegaly present Skin: Other: Warm, dry, no rash Neuro: General: patient oriented x3 Extrem: General: Yes no clubbing, cyanosis or edema Results Results Labs: Short CBC 11/21/24 Range/Units 23:26 WBC 6.8 (4.8-10.8) X10*3/uL Hgb 14.5 (14.0-18.0) g/dl Hct 39.8 L (42.0-52.0) % Plt Count 283 (160-400) X10*3/uL BMP 11/21/24 23:26 Sodium 140 Potassium 3.9 Chloride 108 Carbon Dioxide 25 BUN 17 H Creatinine 0.92 Calcium 9.8 Liver Function 11/21/24 Range/Units 23:26 Total Bilirubin 0.4 (0.0-1.0) mg/dL AST 20 (5-37) U/L ALT 13 (0-40) U/L Alkaline Phosphatase 62 (39-117) U/L Albumin 4.9 (3.5-5.0) g/dL Urine 11/22/24 Range/Units 06:14 Urine Color Yellow Urine Appearance Clear Urine pH 7.5 (5.0-9.0) Ur Specific [place] 1.010 (1.005-1.025) Urine Protein Negative (Neg-Trace) mg/dL Urine Glucose (UA) Negative (Negative) mg/dL Assessment and Plan (1) Incarcerated inguinal hernia, bilateral: Status: Acute Plan 24-year-old male patient presenting with symptomatic bilateral inguinal hernias with pain that is increasing in severity. Exam reveals marked tenderness in bilateral groins right greater than left and CT abdomen and pelvis confirmed a large right inguinal hernia as well as a moderate-sized left inguinal hernia. I recommended repair of the bilateral inguinal hernias with mesh and after discussion of the procedure, risks, and alternatives, he consents to the surgery. He has been added onto the schedule for OR today. NPO, IV fluids, preoperative antibiotics. Quality Stroke Does the patient have a stroke diagnosis?: No VTE Prior VTE?: No VTE Risk Level:: Surgical - low VTE Device Contraindication: N/A - Device Ordered VTE Drug Contraindication: Treatment Not Indicated Procedures Date of Service Date of Service: 11/22/24
--- NOTE | 2024-11-22 08:34 | HO.NURTONUR ---
Pt is a 24y M with recent diagnosis of rt inguinal hernia. Scheduled for repair in Nov. Pt came back to ED today with inc pain and bulging. CT shows hernia doubled in size. No incarceration or strangulation. Reducible when laying flat. MD Stallings to take pt to OR at some point today. Pt has been NPO since MN. Ambulates independently. Pt received morphine during the night with relief. PRN changed to dilaudid. 20gLFA. D5LR@125 running. VSS. Afebrile. No significant medical hx. Pt in stable condition for transfer.
[2024-11-22] MEDS: Dextrose 5 % and Lactated Ring 1,000 ML 125 ML IVCONT ×2 (08:40→17:15)
--- NOTE | 2024-11-22 09:55 | PHA.MEDREC ---
Pharmacy Consult ? Medication Reconciliation Pharmacy has completed the medication reconciliation Spoke with pt to confirm meds.
--- NOTE | 2024-11-22 11:06 | P.CONAN_ITS ---
HPI - Anesthesia Eval Consult details Narrative: Right incarcerated inguinal hernia, left inguinal hernia PMFSH Active Problems Active Problems: All Active Problems Incarcerated inguinal hernia, bilateral (Acute) Past Medical History Medical History Incarcerated inguinal hernia, bilateral Family History Family History Other Crohn's disease Family history of problems with anesthesia: No Surgical History Surgical History H/O nasal septoplasty History of Problems with Anesthesia: No Social History Social History Household Members: Significant Other and Family Housing: Apartment Do you presently have visiting nurse or other home services: No Patient Tobacco Use Status: Current everyday Tobacco user Tobacco use type: Smokeless Tobacco Smoked in Last 30 Days: Yes e-Cigarette/Vaping Use: Currently Using Frequency of e-Cigarette/Vaping Use: daily Patient Interested in Nicotine Replacement: No Substance Use Type: Marijuana Have you been hit, kicked, punched, or otherwise hurt by someone within the past year? If so, by whom?: No Do you feel safe in your current relationship?: Yes Is there a partner from a previous relationship who is making you feel unsafe now?: No Are you made to feel afraid or neglected: No Advance Directives: No Advance Directives Information Provided: No (Declined) Do you have a plan to hurt others: No Plan Recently lost weight without trying: No Eating poorly because of decreased appetite: No Nutrition Risks: No Nutritional Risk Poor oral hygiene: No Meds Allergies Allergy/AdvReac Type Severity Reaction Status Date / Time cephalexin (From Keflex) Allergy Angioedema Verified 11/21/24 22:56 kiwi AdvReac Itching Verified 11/21/24 22:56 Active Medications: Current Medications Hydromorphone HCl (Hydromorphone Hcl 0.5 Mg/0.5 Ml Syringe) 0.5 mg IVPUSH Q3H PRN; Protocol PRN Reason: Pain, Severe (Pain Scale 7-10) Last Admin: 11/22/24 08:39 Dose: 0.5 mg Dextrose/Lactated Ringer's (D5lr) 1,000 mls @ 125 mls/hr IVCONT .Q8H [facility] Last Admin: 11/22/24 08:40 Dose: 125 mls/hr Acetaminophen (Ofirmev) 1,000 mg in 100 mls @ 400 mls/hr IV Q6H PRN PRN Reason: Pain, Mild (Pain Scale 1-3) Last Infusion: 11/22/24 10:51 Dose: Infused Melatonin (Melatonin 3 Mg Tablet) 6 mg PO BEDTIME PRN PRN Reason: Insomnia Ondansetron HCl (Ondansetron Hcl 4 Mg/2 Ml Vial) 4 mg IVPUSH QID PRN PRN Reason: Nausea Last Admin: 11/22/24 10:27 Dose: 4 mg Sodium Chloride (0.9 % Sodium Chloride Flush 3 Ml Syringe) 3 ml IVFLUSH QSHIFT [facility] Last Admin: 11/22/24 08:46 Dose: Not Given Exam Height,Weight and Vital Signs: Height 5 ft 11 in Weight 70.9 kg Last Vital Signs Temp 97.1 F 11/22/24 09:32 Pulse 67 11/22/24 09:32 Resp 16 11/22/24 09:32 BP 122/81 11/22/24 09:32 Pulse Ox 100 11/22/24 09:32 O2 Del Method Room Air 11/22/24 09:32 Pertinent Lab Results Pertinent Lab Results: Laboratory Tests 11/21/24 11/22/24 23:26 06:14 WBC 6.8 RBC 4.73 Hgb 14.5 Hct 39.8 L MCV 84.1 MCH 30.7 MCHC 36.4 H RDW 12.5 Plt Count 283 MPV 7.9 L Immature Gran % (Auto) 0.3 Neut % (Auto) 52.6 Lymph % (Auto) 38.5 [place] % (Auto) 7.6 Eos % (Auto) 0.4 Baso % (Auto) 0.6 Lymph # (Auto) 2.6 [place] # (Auto) 0.5 Eos # (Auto) 0.0 Baso # (Auto) 0.0 Abs Immat Gran (auto) 0.02 Absolute Neuts (auto) 3.6 Absolute Nucleated RBC 0.000 Nucleated RBC % (auto) 0.0 Sodium 140 Potassium 3.9 Chloride 108 Carbon Dioxide 25 Anion Gap 11 L BUN 17 H Creatinine 0.92 Estim Creat Clear Calc 122.8 Estimated GFR > 60 Random Glucose 94 Calcium 9.8 Total Bilirubin 0.4 AST 20 ALT 13 Alkaline Phosphatase 62 Total Protein 7.2 Albumin 4.9 Urine Color Yellow Urine Appearance Clear Urine pH 7.5 Ur Specific [place] 1.010 Urine Protein Negative Urine Glucose (UA) Negative Urine Ketones Negative Urine Blood Negative Urine Nitrite Negative Ur Leukocyte Esterase Negative Urine RBC 0-2 Urine WBC 0-5 Ur Squamous Epith Cells 0-2 Urine Bacteria None Seen Hyaline Casts 0-2 Airway Mallampati Class: I TM Dist: >3cm Neck ROM: Full Loose/Missing/Broken Teeth: No Heart: RRR Lungs: CTA Assessment and Plan Assessment Anesthesia Assessment: Anesthesia Plan Discussed and Chart Reviewed Final Anesthetic Review Family History of Problems with Anesthesia: No History of Problems with Anesthesia: No NPO: Yes ASA Class: I Final Preanesthetic Review: No Changes in Pt Med Stat, Meds/Allgs Chart Reviewed, Consent Obtained/Reviewed and Anes Risks/Benef Reviewed Patient Risk: Low Procedure Risk: Intermediate Anesthetic Plan Anesthetic Plan: GA Disposition: Standard PACU
--- NOTE | 2024-11-22 16:10 | W.PM.OPN ---
Operative Note Operative Note Date of Service: 11/22/24 Narrative: Preoperative diagnosis: Incarcerated bilateral inguinal hernias Postoperative diagnosis: Same Procedure: Repair bilateral inguinal hernias with mesh Surgeon: Hoang Alberts MD Building Drafting Officer: None Anesthesia: General LMA Indications for procedure: 24-year-old male patient with a known right inguinal hernia presenting through the ED with increased abdominal pain related to bilateral inguinal hernias. Patient was previously scheduled for hernia repair at an outside institution but can not wait until the scheduled date. CT abdomen and pelvis confirmed bilateral inguinal hernias. Operative findings: Bilateral inguinal hernia, indirect Specimen: Right side hernia sac, left side lipoma of cord Estimated blood loss: 2 mL Complications: None Procedure details: Patient was brought to the OR and placed in a supine position. After administering general anesthesia the patient's abdomen was prepped with Betadine and draped in a sterile fashion. A surgical time-out was called the consent confirmed. Patient received preoperative antibiotics and Venodyne boots were in place. Local anesthesia consisting of 0.5% Sensorcaine with epinephrine was infiltrated over the right inguinal ligament. Incision was then made over the right inguinal ligament and carried out through subcutaneous tissue, past Little's fascia and up to the external oblique aponeurosis. Additional local was placed below the aponeurosis. This was then incised with a scalpel and widened with the Metzenbaum scissors. The spermatic cord was then dissected free from the inguinal canal and retracted using a Ethan drain. The floor of the inguinal canal was found to be intact without a direct hernia. Fibers of the cremaster muscle were and a large hernia sac identified. This was dissected down to the internal ring. The sac was opened and its contents reduced. Sac was then ligated using a 0 Polysorb suture at its base. The sac was then excised and sent to pathology for further examination. Fibers of the internal oblique and transversalis aponeurosis were then incised between Allis clamps and the preperitoneal space entered. This was then widened using a Ray-Iván sponge. A large PHS mesh was then obtained. The circular underlay was then deployed within the preperitoneal space. The overlay was then secured to the pubic tubercle, conjoined tendon, and shelving edge of the inguinal ligament using a 0 Polysorb suture. A slit was made in the mesh in the mesh wrapped around the spermatic cord at the internal ring. This was secured at the shelving edge using the 0 Polysorb suture. The remaining overlay was placed below the external oblique aponeurosis laterally. Wounds were then irrigated with saline solution and suctioned dry. Approximately 4 mL of Zenrelef was then instilled below the external oblique aponeurosis. Little's fascia was reapproximated using interrupted 3-0 Polysorb sutures. Dermis was reapproximated using interrupted 3-0 Polysorb sutures. Skin was then closed using a running subcuticular 4-0 Polysorb suture. Attention was then directed to the left groin. Local anesthesia was then infiltrated over the left inguinal ligament. Incision was then made with a scalpel and carried out through subcutaneous tissue, past Little's fascia and up to the external oblique aponeurosis. Additional local was then instilled below the aponeurosis. This was then incised with a scalpel and widened with the Metzenbaum scissors. The spermatic cord was then dissected free from the inguinal canal and retracted using a Boaz drain. The floor of the inguinal canal was found to be intact without direct hernia. Fibers of the cremaster muscle were then and a moderate size lipoma of the cord identified. This was dissected down to the internal ring. No sac could be identified. The lipoma was ligated with using a 0 Polysorb suture. The lipoma was then excised and sent to pathology. Fibers of the internal oblique and transversalis aponeurosis were then incised between Allis clamps and the preperitoneal space entered. This was then widened using a Ray-Iván sponge. A large PHS mesh was then obtained in the circular underlay deployed within the preperitoneal space. The overlay was then secured to the pubic tubercle, conjoined tendon and shelving edge of the inguinal ligament using a 0 Polysorb suture. A slit was made in the mesh in the mesh wrapped around the spermatic cord at the internal ring. This was secured to the shelving edge using a 0 Polysorb suture. The remaining overlay was placed below the external oblique aponeurosis laterally. Wounds were then irrigated with saline solution and suctioned dry. Once again 4 mL of Zenrelef was instilled below the external oblique aponeurosis. Little's fascia was then reapproximated using interrupted 3-0 Polysorb sutures. Dermis was reapproximated using interrupted 3-0 Polysorb sutures. Skin was then closed using a running subcuticular 4-0 Polysorb suture. Sterile dressings consisting of Steri-Strips, 4 x 4 gauze and Tegaderm were then applied. The patient tolerated the procedure well. Sponge, instrument, and needle counts reported as correct. The patient was transferred to PACU in stable condition.
--- NOTE | 2024-11-22 16:45 | PC.NURSE ---
ok'd by anesthesia to give another dose of zofran for post op nausea in pacu.
[2024-11-23] MEDS: Dextrose 5 % and Lactated Ring 1,000 ML 125 ML IVCONT (00:45)
[2024-11-23 04:08] VITALS: BP 108/58; PULSE 78; RESP 16; TEMP 36.2; O2SAT 99
[2024-11-23 06:00] VITALS: BP 121/68; PULSE 68; RESP 18; O2SAT 100
--- NOTE | 2024-11-23 07:22 | PM.PNGS ---
Subjective Subjective Date of Service: 11/23/24 <Janet Keita PA-C - Last Filed: 11/23/24 07:40> 11/23/24 <Hoang Alberts MD - Last Filed: 11/23/24 08:54> Interval history: Reports being very sore at incision sites, bruising of scrotum. Attempted bites of sandwich this morning. OOB to bathroom only once on his own. <Janet Keita PA-C - Last Filed: 11/23/24 07:40> Physical Exam Vital Signs: Vital Signs: Last Vital Signs Temp 97.1 F 11/23/24 04:08 Pulse 68 11/23/24 06:00 Resp 18 11/23/24 06:00 BP 121/68 11/23/24 06:00 Pulse Ox 100 11/23/24 06:00 O2 Del Method Room Air 11/23/24 06:00 BMI result Body Mass Index 21.8 <Janet Keita PA-C - Last Filed: 11/23/24 07:40> Const: General: comfortable, no acute distress and alert <Janet Keita PA-C - Last Filed: 11/23/24 07:40> Orientation/consciousness: patient oriented x3 <Janet Keita PA-C - Last Filed: 11/23/24 07:40> Resp: Effort & Inspection: normal respiratory effort <Janet Keita PA-C - Last Filed: 11/23/24 07:40> GI: Other: ecchymosis of right incision site extending into scrotum dressings clean and intact mild incisional tenderness soft, nondistended <Janet Keita PA-C - Last Filed: 11/23/24 07:40> Palpation (GI): no guarding <HEATHER Ibrahim Last Filed: 11/23/24 07:40> Skin: General skin exam: no rashes or lesions noted <HEATHER Ibrahim Last Filed: 11/23/24 07:40> Neuro: General: patient oriented x3 and moves all extremities <HEATHER Ibrahim Last Filed: 11/23/24 07:40> Objective Data Active Medications Dextrose/Lactated Ringer's (D5lr) 1,000 mls @ 125 mls/hr IVCONT .Q8H [facility] Last Admin: 11/23/24 00:45 Dose: 125 mls/hr Documented By: ROB Acetaminophen (Ofirmev) 1,000 mg in 100 mls @ 400 mls/hr IV Q6H PRN PRN Reason: Pain, Mild (Pain Scale 1-3) Last Infusion: 11/22/24 10:51 Dose: Infused Documented By: SIMÓN Melatonin (Melatonin 3 Mg Tablet) 6 mg PO BEDTIME PRN PRN Reason: Insomnia Metoclopramide HCl (Metoclopramide Hcl 10 Mg/2 Ml Vial) 10 mg IVPUSH Q6H PRN PRN Reason: Nausea Last Admin: 11/22/24 17:42 Dose: 10 mg Documented By: SIMÓN Morphine Sulfate (Morphine Sulfate 4 Mg/Ml Cartridge) 4 mg IVPUSH Q3H PRN; Protocol PRN Reason: Pain, Severe (Pain Scale 7-10) Last Admin: 11/23/24 06:49 Dose: 4 mg Documented By: ROB Ondansetron HCl (Ondansetron Hcl 4 Mg/2 Ml Vial) 4 mg IVPUSH QID PRN PRN Reason: Nausea Last Admin: 11/22/24 22:07 Dose: 4 mg Documented By: ROB Oxycodone HCl (Oxycodone Hcl Immed Release 5 Mg Tablet) 5 mg PO Q6H PRN PRN Reason: Pain, Moderate(Pain Scale 4-6) Sodium Chloride (0.9 % Sodium Chloride Flush 3 Ml Syringe) [facility] Last Admin: 11/22/24 23:51 Dose: Not Given Documented By: ROB Non-Admin Reason: IV Running <Janet Keita PA-C - Last Filed: 11/23/24 07:40> Labs CBC & Chem 7: 11/21/24 23:26 11/21/24 23:26 <Janet Keita PA-C - Last Filed: 11/23/24 07:40> Procedures Date of Service Date of Service: 11/23/24 <Janet Keita PA-C - Last Filed: 11/23/24 07:40> 11/23/24 <Hoang Alberts MD - Last Filed: 11/23/24 08:54> Progress Note: A&P Assessment and plan (1) Incarcerated inguinal hernia, bilateral: Status: Acute <Janet Keita PA-C - Last Filed: 11/23/24 07:40> Assessment and Plan: POD #1 s/p repair of bilateral incarcerated inguinal hernias with mesh. Doing well post op. VSS. Abd exam with appropriate post op tenderness, soft, ND. Dressings clean and intact, does have ecchymosis of right side and scrotum, expected. Encouraged OOB/ambulation of halls. Will reassess later today, if comfortable and tolerating solid diet, stable for dc to home today. Patient comfortable with plan. <Janet Keita PA-C - Last Filed: 11/23/24 07:40> POD #1 s/p repair of bilateral incarcerated inguinal hernias with mesh. Doing well post op. VSS. Abd exam with appropriate post op tenderness, soft, ND. Dressings clean and intact, does have ecchymosis of right side and scrotum, expected. Encouraged OOB/ambulation of halls. Will reassess later today, if comfortable and tolerating solid diet, stable for dc to home today. Patient comfortable with plan. Patient seen and examined. Area of numbness in the right leg has improved. There is increased ecchymosis in the right groin suggestive of an underlying hematoma. Dressings are clean intact. Agree with the above assessment and plan. Possible discharge later today. <Hoang Alberts MD - Last Filed: 11/23/24 08:54> Time Spent With Patient Time: Total time managing care of this patient today ____ minutes. <Janet Keita PA-C - Last Filed: 11/23/24 07:40> Quality Stroke Does the patient have a stroke diagnosis?: No <Janet Keita PA-C - Last Filed: 11/23/24 07:40> VTE Prior VTE?: No <Janet Keita PA-C - Last Filed: 11/23/24 07:40> VTE Risk Level:: Surgical - low <Janet Keita PA-C - Last Filed: 11/23/24 07:40> VTE Device Contraindication: N/A - Device Ordered <Janet Keita PA-C - Last Filed: 11/23/24 07:40> VTE Drug Contraindication: Treatment Not Indicated <Janet Keita PA-C - Last Filed: 11/23/24 07:40>
[2024-11-23 07:56] VITALS: BP 120/61; PULSE 70; RESP 18; TEMP 37.1; O2SAT 100
--- NOTE | 2024-11-23 08:09 | HO.POSTANES ---
Post Anesthesia Evaluation Post Anesthesia Evaluation Date of Service: 11/23/24 Vital Signs: Vital Signs Temp Pulse Resp BP Pulse Ox O2 Del Method 11/23/24 07:56 98.7 F 70 18 120/61 100 Room Air 11/23/24 06:00 68 18 121/68 100 Room Air 11/23/24 04:08 97.1 F 78 16 108/58 L 99 Room Air Anesthesia: General Mental Status: Awake Pain Control: Satisfactory Nausea/Vomiting: None Hydration: Adequate Anesthesia-Related Issues: No Anes. Related Issues
[2024-11-23] MEDS: oxyCODONE HCl Immed Release 5 MG TABLET PO (09:35)
[2024-11-23] MEDS: 0.9 % Sodium Chloride Flush 3 ML SYRINGE IVFLUSH ×2 (09:35→20:05)
--- NOTE | 2024-11-23 09:47 | MHC.CM.PN ---
Patient lives in a home w/ his girlfriend and her family. Functionally independent. Denies use of DME or services. No current PCP. Reports he has an appt scheduled / [facility] in [place] for Nov 2025. PCP brochure provided, he will call around for a sooner appt. No HCP. CM provided education and offered assistance. Patient declined. DP: Home self care. Family transport. CM will continue to follow.
--- NOTE | 2024-11-23 13:55 | PM.EVENT ---
Event Note Date of Service: 11/23/24 Event Note: Reassessed this afternoon. He reports a lot of pain at incision site and has only walked to bathroom with assistance. Discussed staying another night for pain control. Encouraged OOB/ambulation and increasing activity as tolerated. Possible dc to home in AM if pain better controlled. Time Spent With Patient Time: Total time managing care of this patient today ____ minutes.
[2024-11-23 14:00] VITALS: BP 139/70; PULSE 93; RESP 18; TEMP 36.8; O2SAT 99
[2024-11-23 22:00] VITALS: BP 164/80; PULSE 77; RESP 17; TEMP 36.4; O2SAT 99
[2024-11-23 22:25] VITALS: RESP 18
[2024-11-23] MEDS: oxyCODONE HCl Immed Release 5 MG TABLET 10 MG PO (22:58)
[2024-11-24 06:00] VITALS: BP 118/52; PULSE 60; RESP 17; TEMP 36; O2SAT 100
[2024-11-24 08:03] VITALS: BP 92/67; PULSE 54; RESP 16; TEMP 36.1; O2SAT 95
[2024-11-24] MEDS: oxyCODONE HCl Immed Release 5 MG TABLET 10 MG PO ×2 (08:08→13:54)
--- NOTE | 2024-11-24 13:38 | P.DS_ITS ---
DS: Providers Provider Date of Service: 11/24/24 Date of admission: 11/22/24 07:49 Date of discharge: 11/24/24 Primary care physician: Kalpana Physician Attending physician on admission: Hoang Alberts Attending physician on discharge: Hoang Alberts DS: Diagnosis Discharge Diagnosis (1) Incarcerated inguinal hernia, bilateral: Status: Acute DS: Summary Hospital Course Hospital Course: HPI AT ADMISSION: Tab Pinedo is a 24 year old male presenting with pain in the right groin. He has a known right inguinal hernia and possible small left inguinal hernia. He was evaluated by a surgeon at [facility] and surgery scheduled however the pain over the past 8 days has increased in severity. He tried going to [facility] however the wait in the emergency department was too long therefore presented to [facility]. Exam in the ED revealed tenderness in bilateral groins right greater than left with a palpable right inguinal hernia. CT abdomen and pelvis confirmed a large fat containing right inguinal hernia with a small fat containing left inguinal hernia. HOSPITAL COURSE: The patient was admitted to the surgical service for management of the bilateral inguinal hernias with incarceration. Given the increasing symptoms and tenderness of exam, repair of the bilateral inguinal hernias with mesh was recommended and he was added onto the schedule for OR that day. NPO, I V fluids, preoperative antibiotics. On 11/22/24, repair bilateral inguinal hernias with mesh was performed by Dr. Alberts without immediate complication. The patient tolerated the procedure well. He had an uncomplicated recovery course. He remained in patient for two nights post operatively for pain control. On the day of discharge, he felt well and was tolerating a solid diet without nausea or vomiting, had good pain control on oral analgesics and was ambulating without difficulty. He was hemodynamically stable. His abdomen was benign with appropriate post op tenderness and intact dressings with mild ecchymosis at the repair sites. He felt ready for discharge. He was discharged to home on 11/24/24 in stable condition. He is to follow up in the office in 1 week. Status at Discharge Functional status at discharge: independent ambulation Overall status at discharge: patient is progressing back to baseline Time Attestation Discharge Coordination Time (in mins): 30 Quality: Safe Use of Opioids Does Pt have an Active Cancer Diagnosis on the Problem List?: No Quality: Stroke Does the patient have a stroke diagnosis?: No Physical Exam Vital Signs: Vital Signs: Last Vital Signs Temp 96.9 F 11/24/24 08:03 Pulse 54 11/24/24 08:03 Resp 16 11/24/24 08:03 BP 92/67 11/24/24 08:03 Pulse Ox 95 11/24/24 08:03 O2 Del Method Room Air 11/24/24 08:03 BMI result Body Mass Index 21.8 Const: General: comfortable, no acute distress, well developed and alert Resp: Effort & Inspection: normal respiratory effort GI: Other: soft, nondistended bilateral dressings intact, small amount of staining ecchymosis of repair sites, R > L Palpation (GI): no guarding Skin: General skin exam: no rashes or lesions noted DS: Data Data Completed and Pending Pending studies at discharge: Pending at discharge 11/22/24 15:45 Surgical [PTH] Routine Discharge Plan Discharge Anticipated Discharge Date/Time: 11/24/24 13:38 Patient Disposition: Home, Self-Care Discharge Diagnosis: s/p repair of bilateral incarcerated inguinal hernias with mesh Referrals: Hoang Alberts MD [Physician, General Surgery] - 1 Week PhysicianKalpana [Primary Care Provider, Medical] - 1 Week Discharge Medications: New docusate sodium [Colace] 100 mg capsule 100 mg PO BID PRN (Reason: constipation) Qty: 30 0RF oxycodone 5 mg tablet 5 mg PO Q4H PRN (Reason: pain (scale score 7-10)) Qty: 26 0RF Rx Instructions: Partial Fill upon patient request. Continued ibuprofen 600 mg tablet 600 mg PO Q6H PRN (Reason: pain) Qty: 30 0RF acetaminophen [Tylenol Extra Strength] 500 mg tablet 1,000 mg PO Q8H PRN (Reason: pain) Qty: 30 0RF Discharge Orders: Discharge Order (Routine); Ordered 11/24/24 Ordered By: Janet Keita Diet: Advance to usual diet Activity on Discharge: No heavy lifting Stand Alone Forms: Patient Portal Discharge page Print Language: Belgian Activity Restrictions/Additional Instructions: If the incision area is tender, you may apply an ice pack for short intervals (No more than 20 minutes on, followed by at least 20 minutes off). Do not apply heat. Do not use creams, lotions, or topical antibiotics. Ok to shower. Remove clear dressings 3 days following your procedure. You have steri strips (small white strips) covering your incision- these will fall off ~1 week. No heavy lifting (>10lbs) or strenuous activity! Take Tylenol Extra-strength 1-2 tabs every 6 hours for the first day, then as needed. Oxycodone every 6-8 hours as needed for pain. Colace 100 mg twice a day as needed for constipation. Follow up in office with Dr. Alberts in 1 week. ([phone]) Call Your Doctor If: -Your temperature exceeds 101.5? F -You experience excessive pain or swelling -You have an unexpected reaction to medication -You have excessive bleeding -You experience continued vomiting/nausea -Your incision begins to separate -Your incision shows signs of infection such as increased redness, swelling, excessive pain, drainage (light blood or clear fluid is normal) or heat Care Plan Goals: Return to baseline health and resume normal activities following recovery period. Health Concerns: bilateral inguinal hernias Plan of Treatment: S/p repair of bilateral inguinal hernias with mesh Follow up in the office in 1 week Pain control Assessment: Doing well post op.
--- NOTE | 2024-11-24 14:00 | MHC.CM.PN ---
Patient medically cleared for dc home self care via private transport.
== END 2024-11-24 14:12 | disposition home or self-care (01) | DRG 352 ==
LOC: HO.ED 11-22 05:40 → HO.EDOVER 11-22 08:05 → HO.S3 11-22 08:29
PROVIDERS: Admitting Provider Surgery; Emergency Provider Emergency Medicine; Visit Provider Surgery
PROC: 0YUA0JZ Supplement Bilateral Inguinal Region with Synthetic Substitute, Open Approach (ICD-10-PCS; CPT 49505; principal; 2024-11-22 14:30)
DX: K40.00 Bilateral inguinal hernia, with obstruction, without gangrene, not specified as recurrent (principal); F17.210 Nicotine dependence, cigarettes, uncomplicated; Z71.6 Tobacco abuse counseling; Z79.899 Other long term (current) drug therapy
CPT/HCPCS: 49505; 36415; 74177; 80053; 81001; 85025; 88302; 88304; 99221; 99285; C1781; C9088; J0131; J1100; J1171; J1885; J2003; J2250; J2270; J2405; J2704; J2765; J3010; J3374; Q9967

== ENCOUNTER → 2024-11-22 04:20 | Outpatient (BNV) | payer OTHER, SELFPAY | PROVIDERS: Emergency Provider Emergency Medicine; Visit Provider Radiology Diagnostic Radiology | DX: K40.90 Unilateral inguinal hernia, without obstruction or gangrene, not specified as recurrent (principal); N32.89 Other specified disorders of bladder; N13.2 Hydronephrosis with renal and ureteral calculous obstruction; N13.4 Hydroureter; R19.00 Intra-abdominal and pelvic swelling, mass and lump, unspecified site | CPT/HCPCS: 74177 ==

== ENCOUNTER → 2024-11-22 07:49 | Outpatient (BNV) | payer OTHER, SELFPAY | PROVIDERS: Admitting Provider Surgery; Emergency Provider Emergency Medicine; Visit Provider Surgery | DX: K40.00 Bilateral inguinal hernia, with obstruction, without gangrene, not specified as recurrent (principal) | CPT/HCPCS: 49505; 99222 ==

== ENCOUNTER 2024-11-30 09:17 | Outpatient (AMB) | payer OTHER, SELFPAY ==
[2024-11-30 09:25] VITALS: BP 117/63; PULSE 86
--- NOTE | 2024-11-30 09:25 | MHC.OFFVIS ---
Vital Signs 11/30/24 09:25 Weight 153 lb BP 117/63 Blood Pressure Location Rt brachial Position Sitting Pulse 86 Intake Visit Reasons: s/p ingunial hernia surgery Intake Note: Patient here s/p repair bilateral inguinal hernias with mesh. Patient c/o: severe pain, hurts even when I'm standing. Ran out of rx pain meds. Surgery (): 11-22-2024 Agronomy Technician Required: No Accompanied by: Lilly Allergies cephalexin (From Keflex) Allergy (Verified 11/30/24 09:27) Angioedema kiwi Adverse Reaction (Verified 11/30/24 09:27) Itching HPI HPI s/p ingunial hernia surgery: Details: Reports he is doing okay. Struggling with pain control, especially with standing. The right side is worse than the left. He has been very difficult for him to walk around. Has been needing to take 10 mg of oxycodone, especially to help him sleep. Has been supplementing with Tylenol and ibuprofen but this has not really touched with the pain. States his insurance reached out to check in, stated that he reported he is struggling with pain control and there was a 3 [address] call with our office and the insurance and patient was informed that he could take 10 mg. States the swelling has improved somewhat, noticed improvement in some of the swelling in the right side yesterday. There remains significant bruising and swelling of the right side. Scrotal swelling has improved but remains dark purple. He denies nausea or vomiting. He is tolerating diet. Denies issues with bowel movements. [facility] Medical History Incarcerated inguinal hernia, bilateral Surgical History (Updated 11/30/24 @ 10:10 by Prabhakar Mccarty PA-C) H/O inguinal hernia repair H/O nasal septoplasty Family History Other Crohn's disease Social History Household Members: Significant Other and Family Housing: Apartment Do you presently have visiting nurse or other home services: No Comment: right knee upper leg still with numb like feeling post op Patient Tobacco Use Status: Current everyday Tobacco user Tobacco use type: Smokeless Tobacco e-Cigarette/Vaping Use: Currently Using Substance Use Type: Marijuana service: No Physical Exam Vital Signs: Last Vital Signs Pulse 86 11/30/24 09:25 BP 117/63 11/30/24 09:25 Const General: comfortable and no acute distress Orientation/consciousness: patient oriented x3 Resp Effort & Inspection: normal respiratory effort and able to speak in complete sentences GI Other: Right inguinal hernia incision site: Significantly tender. Moderately edematous. Moderate ecchymosis surrounding incision site, yellowing. Some darker bruising extending down towards the penis and scrotum. Incisions are intact. No drainage. Left inguinal hernia incision site: Mildly tender, no edema, mild ecchymosis. Intact, no erythema or fluid collection Inspection: No distended Palpation (GI): Soft to palpation and Tenderness to palpation present (GI) (Incision site tenderness, significant on right, mild on left.) Neuro General: patient oriented x3 Assessment & Plan Assessment & Plan (1) S/P inguinal hernia repair: Comment: Bilateral, 11/22/2024 Dr. Alberts Code(s): Z98.890 - Other specified postprocedural states; Z87.19 - Personal history of other diseases of the digestive system Category: Medical Plan 24-year-old otherwise healthy male returning to the office s/p bilateral inguinal hernia repairs on 11/22/2024. He is doing okay however struggling with pain control. Needing to take 10 mg of oxycodone to control pain even with nonnarcotic supplementation. He is struggling with ambulation, walking hunched over. Pain is worse on the right. Overall some of the swelling and bruising is improving over the past few days but remains on the right. He is eating, passing bowel movements and urinating at baseline. On exam the abdomen is soft and benign. Incision sites are described above in the physical exam. The left appears appropriate for postsurgical evaluation. Some mild bruising but otherwise intact clean and dry. No concern for infection. On the right there is some moderate swelling at the incision site, he is very tender here and there was some significant ecchymosis surrounding the incision site extending down to the penis and scrotum. The incision is clean and dry I do not have concern for infection at this time. I was unable to appreciate any fluctuance however this part of the exam was limited by the patient's pain. It is possible he has a small hematoma or seroma formation. Recommended he continue with warm compresses to the area to improve swelling as needed. Reassured him that this should improve with time as he is only about a week postop. However this is not improving he should reach out to the office for re-evaluation. I will send a new script for oxycodone. Recommended taking 5 mg during the day, can take 10 mg at night to improve sleep. He should try to to reduce narcotic load as much as possible, can continue to supplement with ibuprofen or Tylenol as needed. In addition to medications, I recommended that he avoid any significant ambulation as much as possible. We will also continue with activity restrictions no heavy lifting greater than 15-20 lb for likely the next 5 weeks. He is agreeable to this plan would like to see him back in 2 weeks for re-evaluation. He should remain out of work until at least that appointment. He can reach out with any concerns or questions prior to that appointment. Medications: New oxycodone Partial Fill upon patient request. 5 mg PO Q4H PRN 24 tabs 0RF pain Discontinued oxycodone Partial Fill upon patient request. Discontinued Reason: Patient Completed Course 5 mg PO Q4H PRN 26 tabs 0RF pain (scale score 7-10) Coding Level of Care Code Global (40384) Diagnoses S/P inguinal hernia repair Z98.890; Z87.19
--- OUTSIDE RECORDS SUMMARY | 2024-11-30 10:29 | XMS_ITS | Clinical Summary ---
Author Organization [address] [facility] Address [address] [place] [address] Phone Care Team Providers Care General Operations Agent Name Role Phone Umer Davis MD Primary Care Provider [phone] Allergies Active Allergy Reactions Criticality Noted Date [...] Department Care Team Description 11/18/2024 Telephone [address] [phone] Stephanie Pope MD 11/11/2024 6:10 AM EDT - 11/11/2024 7:13 AM EDT Emergency [facility] Emergency [address] [place] [id number] Rosalia Clancy MD Nausea and vomiting, unspecified vomiting type (Primary Dx); Unilateral recurrent inguinal hernia without obstruction or gangrene Discharge Disposition: Home or Self Care 11/10/2024 11:30 AM EDT Consult Bariatric [facility] [address] [phone] Stephanie Pope MD Right inguinal hernia (Primary [...] 11/11/2024 5:30 AM EDT Plan of Treatment Health Maintenance Due [...] CBC auto differential (11/11/2024 5:32 AM EDT) WBC 6.2 4.8 - 10.8 K/mcL LAB HEMETOLOGY METHOD 11/11/2024 5:[address] [facility] RBC 5.10 4.50 - 5.50 M/mcL LAB HEMETOLOGY METHOD 11/11/2024 5:[address] [facility] Hemoglobin 15.2 13.5 - 17.5 g/dL LAB HEMETOLOGY METHOD 11/11/2024 5:[address] [facility] Hematocrit 44.6 42.0 - 54.0 % LAB HEMETOLOGY METHOD 11/11/2024 5:[address] [facility] MCV 87.8 79.0 - 98.0 FL LAB HEMETOLOGY METHOD 11/11/2024 5:[address] [facility] MCH 29.9 27.0 - 32.0 pcg LAB HEMETOLOGY METHOD 11/11/2024 5:[address] [facility] MCHC 34.1 32.0 - 37.0 g/dL LAB HEMETOLOGY METHOD 11/11/2024 5:[address] [facility] RDW 12.4 11.0 - 15.0 % LAB HEMETOLOGY METHOD 11/11/2024 5:[address] [facility] Platelets 311 130 - 400 K/mcL LAB HEMETOLOGY METHOD 11/11/2024 5:[address] [facility] MPV 8.0 7.0 - 11.0 FL LAB HEMETOLOGY METHOD 11/11/2024 5:[address] [facility] NRBC 0.0 <1.0 % LAB HEMETOLOGY METHOD 11/11/2024 5:[address] [facility] NRBC Absolute 0.00 <0.10 K/mcL LAB HEMETOLOGY METHOD 11/11/2024 5:[address] [facility] Neutrophils Relative 42.9 % LAB HEMETOLOGY METHOD 11/11/2024 5:[address] [facility] Lymphocytes Relative 45.6 % LAB HEMETOLOGY METHOD 11/11/2024 5:[address] [facility] Monocytes Relative 9.5 % LAB HEMETOLOGY METHOD 11/11/2024 5:[address] [facility] Eosinophils Relative 1.1 % LAB HEMETOLOGY METHOD 11/11/2024 5:[address] [facility] Basophils Relative 0.6 % LAB HEMETOLOGY METHOD 11/11/2024 5:[address] [facility] Immature Granulocytes Relative 0.3 % LAB HEMETOLOGY METHOD 11/11/2024 5:[address] [facility] Neutrophils Absolute 2.64 1.50 - 7.00 K/mcL LAB HEMETOLOGY METHOD 11/11/2024 5:[address] [facility] Lymphocytes Absolute 2.82 1.00 - 5.00 K/mcL LAB HEMETOLOGY METHOD 11/11/2024 5:41 AM EDT [facility] Monocytes Absolute 0.59 0.20 - 1.00 K/[facility] LAB HEMETOLOGY METHOD 11/11/2024 5:41 AM EDT [facility] Eosinophils Absolute 0.07 0.00 - 0.50 K/[facility] LAB HEMETOLOGY METHOD 11/11/2024 5:41 AM EDT [facility] Basophils Absolute 0.04 0.00 - 0.20 K/[facility] LAB HEMETOLOGY METHOD 11/11/2024 5:41 AM EDT [facility] Immature Granulocytes Absolute 0.02 0.00 - 0.03 K/[facility] LAB HEMETOLOGY METHOD 11/11/2024 5:41 AM EDT [facility] Blood Venous blood specimen / Unknown Venipuncture / Unknown 11/11/2024 5:32 AM EDT 11/11/2024 5:37 AM EDT us Yannick Middleton MD LAB BLOOD ORDERABLES Final Res ult [facility] [address] [place] [address], * Magnesium (11/11/2024 5:32 AM EDT) Magnesium 2.1 1.9 - 2.6 mg/dL LAB CHEMISTRY METHOD 11/11/2024 7:02 AM EDT [facility] Blood Venous blood specimen / Unknown Venipuncture / Unknown 11/11/2024 5:32 AM EDT 11/11/2024 5:37 AM EDT Rosalia Clancy MD LAB BLOOD ORDERABLES Final Res ult [facility] [address] [place] [address], [place] [phone] * Lipase (11/11/2024 5:32 AM EDT) [facility] Lipase 24 13 - 75 unit/L LAB CHEMISTRY METHOD 11/11/2024 6:[address] [facility] Blood Venous blood specimen / Unknown Venipuncture / Unknown 11/11/2024 5:32 AM EDT 11/11/2024 5:37 AM EDT us Yannick Middleton MD LAB BLOOD ORDERABLES Final Res ult [facility] [address] [place] [address], [place] [phone] * Comprehensive metabolic panel (11/11/2024 5:32 AM EDT) [facility] Sodium 140 133 - 145 mmol/L LAB CHEMISTRY METHOD 11/11/2024 6:[address] [facility] Potassium 3.7 3.5 - 5.5 mmol/L LAB CHEMISTRY METHOD 11/11/2024 6:[address] [facility] Chloride 106 96 - 110 mmol/L LAB CHEMISTRY METHOD 11/11/2024 6:[address] [facility] CO2 27 21 - 32 mmol/L LAB CHEMISTRY METHOD 11/11/2024 6:[address] [facility] Anion Gap 7 3 - 11 LAB CHEMISTRY METHOD 11/11/2024 6:[address] [facility] Glucose 77 70 - 100 mg/dL LAB CHEMISTRY METHOD 11/11/2024 6:[address] [facility] BUN 15 5 - 25 mg/dL LAB CHEMISTRY METHOD 11/11/2024 6:[address] [facility] Creatinine 0.92 0.70 - 1.30 mg/dL LAB CHEMISTRY METHOD 11/11/2024 6:[address] [facility] eGFR 121 >=60 mL/min/1. 73m2 LAB CHEMISTRY METHOD 11/11/2024 6:[address] [facility] Comment:Calculation based on the Chronic Kidney Disease Epidemiology Collaboration (CKD-EPI) equation refit without adjustment for race. BUN/Creatinine Ratio 16.3 LAB CHEMISTRY METHOD 11/11/2024 6:[address] [facility] Calcium 9.7 8.5 - 10.5 mg/dL LAB CHEMISTRY METHOD 11/11/2024 6:[address] [facility] AST (SGOT) 12 10 - 42 unit/L LAB CHEMISTRY METHOD 11/11/2024 6:[address] [facility] ALT (SGPT) 18 10 - 60 unit/L LAB CHEMISTRY METHOD 11/11/2024 6:[address] [facility] Alkaline Phosphatase 77 42 - 121 unit/L LAB CHEMISTRY METHOD 11/11/2024 6:[address] [facility] Total Protein 7.2 6.0 - 8.0 g/dL LAB CHEMISTRY METHOD 11/11/2024 6:[address] [facility] Albumin 4.4 3.2 - 5.0 g/dL LAB CHEMISTRY METHOD 11/11/2024 6:[address] [facility] Total Bilirubin 0.3 0.0 - 1.4 mg/dL LAB CHEMISTRY METHOD 11/11/2024 6:[address] [facility] Blood Venous blood specimen / Unknown Venipuncture / Unknown 11/11/2024 5:32 AM EDT 11/11/2024 5:37 AM EDT us Yannick Middleton MD LAB BLOOD ORDERABLES Final Res ult [facility] [address] [place] [address], from Last 3 Months Insurance [facility] Care Teams General Operations Agent Relationship Specialty Start Date End Date Umer Davis MD [address] [facility] [address] [place] [address] PCP - General Internal Medicine 11/04/24
--- OUTSIDE RECORDS SUMMARY | 2024-11-30 10:29 | XMS_ITS | Clinical Summary ---
Author Organization [facility] Address [address] [place], [place] [phone] Phone Care Team Providers Care Costume Rental Clerk Name Role Phone Unknown, Unknown Primary Care [...] Medical Devices Not on file Care Teams Costume Rental Clerk Relationship Specialty Start Date End Date Unknown, Unknown, MD PCP - General 05/02/23 Additional Source Comments The information contained in this document represents components of the legal health record. It is not the complete legal health record.[facility]
--- OUTSIDE RECORDS SUMMARY | 2024-11-30 10:29 | XMS_ITS | Encounter Summary ---
Author Organization [facility] Address [address] [place] [address] Care Team Providers Care Refrigeration Mechanic Name Role Phone Marlin Lucas Primary Care Provider [phone] Encounter Details Date Type Department Care Team (Late st Contact Info) Description 07/27/2022 Fineline Message [facility] Pre Surgical Evaluation [address] [place] [address] Mychart, Generic Provider [address] [place], [place] [id number] Preop Instructions for surgery 08/02/22 -Dr Zavaleta [...] on filedocumented in this encounter Care Teams Refrigeration Mechanic Relationship Specialty Start Date End Date Marlin Lucas [address] [place] [phone] PCP - General Family Medicine 08/06/22 documented as of this encounter
--- OUTSIDE RECORDS SUMMARY | 2024-11-30 10:29 | XMS_ITS | Clinical Summary ---
Author Organization [facility] Address [address] [place] [address] Care Team Providers Care Sap [place]riba Consultant Name Role Phone Marlin Lucas Primary Care Provider [phone] Allergies Active Allergy Reactions Criticality Noted Date [...] 10:54 AM 08/02/2022 8:29 PM Care Teams [place] Consultant Relationship Specialty Start Date End Date Marlin Lucas [address] [place] [phone] PCP - General Family Medicine 08/06/22
== END 2024-11-30 09:43 | disposition home or self-care (01) ==
LOC: HO.HGS 09:18
DX: Z98.890 Other specified postprocedural states (principal); Z87.19 Personal history of other diseases of the digestive system
CPT/HCPCS: 99024

== ENCOUNTER 2024-12-02 11:34 | Emergency (ER) | payer OTHER, SELFPAY ==
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
[2024-12-02 11:54] VITALS: BP 135/75; PULSE 99; RESP 16; TEMP 37; O2SAT 99; BMI 20.9
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
[2024-12-02 17:19] VITALS: BP 123/63; PULSE 86; RESP 16; TEMP 36.7; O2SAT 100
[2024-12-02 17:41] LABS: MANUAL DIFF FLAG NO
[2024-12-02 17:53] LABS: Hematocrit 37.0 % (42.0-52.0); Hemoglobin 13.2 g/dl (14.0-18.0); Imm Gran Abs Auto 0.02 X10*3/uL (0.00-0.03); Imm Gran Pct Auto 0.3 % (0.0-0.4); Lymphocytes Absolute Auto 1.5 X10*3/uL (1.2-4.9); Mean Corpuscular HGB Conc 35.7 g/dl (31.0-36.0); Mean Corpuscular Hemoglobin 30.5 pg (27.0-33.0); Mean Corpuscular Volume 85.5 fL (80.0-98.0); NRBC Abs Auto 0.000 X10*3/uL (0.0-0.012); NRBC Pct Auto 0.0 /100WBC (0.0-0.2); Platelet Count 315 X10*3/uL (160-400); Red Blood Count 4.33 X10*6/uL (4.60-5.80); White Blood Count 7.4 X10*3/uL (4.8-10.8)
[2024-12-02 18:00] LABS: Alanine Aminotransferase 12 U/L (0-40); Albumin Level 4.6 g/dL (3.5-5.0); Alkaline Phosphatase 55 U/L (39-117); Anion Gap 10 (12-20); Aspartate Amino Transferase 20 U/L (5-37); Blood Urea Nitrogen 12 mg/dL (9-16); Calcium 9.5 mg/dL (8.4-10.2); Carbon Dioxide 25 mmol/L (22-29); Chloride 110 mmol/L (96-108); Creatinine Clr Calc Pharmacy 146.7; Estimated Glomerular Filt Rate > 60; Lipase 16 U/L (8-78); Potassium 3.4 mmol/L (3.3-5.1); Sodium 142 mmol/L (135-145); Total Protein 7.1 g/dL (6.5-8.0)
[2024-12-02] MEDS: iohexoL 350 MG/ML 100 ML INFUS..BTL IV (18:44)
[2024-12-02 20:40] VITALS: BP 110/64; PULSE 76; RESP 16; TEMP 36.8; O2SAT 99
--- NOTE | 2024-12-02 20:47 | PC.NURSE ---
pt medicated as per apr. Effectiveness pending
[2024-12-02 21:25] VITALS: BP 110/64; PULSE 76; RESP 16; TEMP 36.8; O2SAT 99
== END 2024-12-02 21:26 | disposition home or self-care (01) ==
PROVIDERS: Emergency Provider Emergency Medicine Emergency Medical Services
DX: S39.012A Strain of muscle, fascia and tendon of lower back, initial encounter (principal); M54.2 Cervicalgia; R10.9 Unspecified abdominal pain; V49.88XA Car occupant (driver) (passenger) injured in other specified transport accidents, initial encounter; Y93.89 Activity, other specified; Y92.488 Other paved roadways as the place of occurrence of the external cause; Y99.8 Other external cause status; Z98.890 Other specified postprocedural states
CPT/HCPCS: 36415; 72100; 72125; 74177; 80053; 83690; 85025; 96361; 96374; 96376; 99284; 99285; J2270; Q9967

== ENCOUNTER → 2024-12-02 12:00 | Outpatient (BNV) | payer OTHER, SELFPAY | PROVIDERS: Visit Provider Radiology Diagnostic Radiology | DX: Z04.3 Encounter for examination and observation following other accident (principal); M54.2 Cervicalgia; M54.50 Low back pain, unspecified; Z98.890 Other specified postprocedural states; V89.2XXA Person injured in unspecified motor-vehicle accident, traffic, initial encounter | CPT/HCPCS: 72100; 72125; 74177 ==

== ENCOUNTER 2024-12-04 08:41 | Emergency (ER) | payer OTHER, SELFPAY ==
--- NOTE | ~2024-12-04 | CT_ITS ---
EXAMINATION: CT ABDOMEN PELVIS WITH IV CONTRAST HISTORY: Significant lower abdominal pain hernia surgery COMPARISON: Previous CT of the abdomen and pelvis most recent December 02, 2024 TECHNIQUE: CT scan of the abdomen and pelvis was performed following administration of 85 mL Omnipaque 350 using standard departmental protocol. Coronal and sagittal reformatted images were generated and reviewed. This CT exam was performed with one or more of the following dose reduction techniques: automated exposure control, adjustment of the mA and/or kV according to patient size, use of iterative reconstruction technique. DLP: 447 mGy-cm FINDINGS: LOWER CHEST: The visualized lung bases are clear. There is no pleural effusion. CARDIOVASCULATURE: The heart is normal in size. There is no pericardial effusion. LIVER: The liver is normal in size and contour. No liver mass is identified. The hepatic and portal veins are patent. GALLBLADDER / BILE DUCTS: The gallbladder is unremarkable. There is no intra or extrahepatic biliary ductal dilatation. SPLEEN: The spleen is normal in size. No focal splenic lesion is identified. PANCREAS: The pancreas is unremarkable in appearance. ADRENAL GLANDS: Within normal limits. KIDNEYS/RETROPERITONEUM: No renal calculi are identified. There is no hydronephrosis. No renal masses are identified. LYMPH NODES: No enlarged lymph nodes. There are small, small bowel mesentery and right inguinal lymph nodes not appreciably changed. VASCULATURE: The abdominal aorta is normal in caliber. MESENTERY/PERITONEUM: No free fluid. No masses. There is no free intraperitoneal gas. Small amount of extraperitoneal fluid in the pelvis unchanged. STOMACH: Normal SMALL BOWEL: The small bowel is normal in caliber. COLON: The colon is unremarkable. APPENDIX: Normal. URINARY BLADDER/PELVIC ORGANS: The urinary bladder is unremarkable. Normal-sized prostate gland. There is trace extraperitoneal fluid in the pelvis that appears unchanged. BONES / SOFT TISSUES: Stable postsurgical changes in the right groin post hernia repair. There is a small postsurgical fluid collection just deep to the skin measuring 1.7 x 3.8 x 3.4 cm. This is slightly mixed in attenuation with a small 1 cm lateral high attenuation component similar to prior exam. No air in the collection seen. There is surrounding stranding of the subcutaneous fat. Bony structures are unremarkable. CT/CT abdomen pelvis w IV con IMPRESSION: Stable superficial complex fluid collection in the right groin post right inguinal hernia repair. This measures 1.7 x 3.8 x 3.4 cm. This has a small high attenuation component laterally that could represent hematoma. No air is seen to suggest this represents an abscess. Small amount of extraperitoneal fluid in the pelvis unchanged. Electronically signed by: Beverly Garza MD 12/04/2024 10:22 AM EDT
--- NOTE | 2024-12-04 08:48 | ED_ITS ---
HPI - General Adult General Chief complaint: Abdominal Pain Stated complaint: abd pain, recent surgery Time Seen by Provider: 12/04/24 08:47 Source: patient Mode of arrival: ambulatory Limitations: no limitations History of Present Illness ED Provider: LOPEZ Leger HPI narrative: This is a 24-year-old male with recent history of bilateral inguinal repair with mesh on 11/22/2024 done here at [facility] by Dr. Alberts presenting to the emergency department with severe bilateral groin/lower abdominal pain, nausea and vomiting that started suddenly at 05:00 he tells me he is extremely uncomfortable has not been able to keep anything down ever since. Denies fevers, chills, chest pain, shortness of breath, flank pain, blood in stool or vomit, changes in urinary or bowel habits. He denies marijuana use. Related Data Previous Rx's ?Medication ?Instructions ?Recorded acetaminophen 500 mg tablet 1,000 mg (2 x 500 mg) PO Q 8H PRN 11/02/24 (Tylenol Extra Strength) pain #30 tabs ibuprofen 600 mg tablet 600 mg PO Q6H PRN pain #30 t abs 11/02/24 docusate sodium 100 mg capsule 100 mg PO BID PRN const ipation #30 11/23/24 (Colace) caps oxycodone 5 mg tablet 5 mg PO Q4H PRN pain #24 tab s 11/30/24 oxycodone 5 mg tablet 5 mg PO Q6H PRN pain #10 tab s 12/02/24 acetaminophen 325 mg tablet 650 mg (2 x 325 mg) PO Q6H PRN 12/04/24 (Tylenol) fever or pain #30 tabs docusate sodium 100 mg capsule 100 mg PO BID #30 caps 12/04/24 (Colace) ondansetron HCl 4 mg tablet 4 mg PO Q8H PRN nausea and 12/04/24 vomiting #14 tabs polyethylene glycol 3350 17 17 g PO BID PRN constipati on #238 12/04/24 gram/dose oral powder (Miralax) grams Allergies Allergy/AdvReac Type Severity Reaction Status Date / Time cephalexin (From Keflex) Allergy Angioedema Verified 12/04/24 09:02 kiwi AdvReac Itching Verified 12/04/24 09:02 Review of Systems 2 Review of Systems: Yes all other systems are reviewed and are negative [facility] Past Medical History Attestation statement: The following information was validated with the patient. Source: old records reviewed and nursing notes reviewed Medical History Incarcerated inguinal hernia, bilateral Surgical History H/O inguinal hernia repair H/O nasal septoplasty Family History Family History Other Crohn's disease Social History Social History Household Members: Significant Other and Family Housing: Apartment Do you presently have visiting nurse or other home services: No Comment: right knee upper leg still with numb like feeling post op Patient Tobacco Use Status: Current everyday Tobacco user Tobacco use type: Smokeless Tobacco e-Cigarette/Vaping Use: Currently Using Substance Use Type: Marijuana Advance Directives: No Advance Directives Information Provided: Yes service: No Physical Exam ED Exam Exam: Appearance: Alert.? Oriented X3.? No acute distress.? Head: Normocephalic, atraumatic, no step-offs or deformities Eyes: Pupils equal, round and reactive to light.? ENT: Pharynx normal.? Neck: Normal inspection.? Neck supple.? CVS: Normal heart rate and rhythm.? Pulses normal.? Respiratory: No respiratory distress.? Breath sounds normal.? Abdomen: Soft and significant tenderness to lower abdomen..? Skin: Skin warm and dry.? Normal skin color.? Normal skin turgor.?+ b/l inguinal repair incision sites clean dry and intact small hematoma noted to the right Extremities: No lower extremity edema.? No calf ttp. 5/5 strength to bilateral upper and lower extremities Back: No midline tenderness, no C-spine tenderness, full range of motion, no CVA tenderness bilaterally Neuro: Oriented X 3.? No motor deficit.? No sensory deficit. CN 2-12 intact Vital Signs: Vital Signs - 24 hr 12/04/24 08:55 12/04/24 08:59 12/04/24 10:43 Temperature 98.0 F Pulse Rate 95 64 Respiratory Rate 20 20 18 Blood Pressure 129/92 H 121/63 Pulse Oximetry 96 99 Oxygen Delivery Method Room Air Room Air 12/04/24 11:36 Temperature Pulse Rate Respiratory Rate 22 H Blood Pressure Pulse Oximetry Oxygen Delivery Method BMI result Body Mass Index 20.9 vss Course Reevaluation(s) Reevaluation #1: CBC with a normocytic anemia appears to be around patient's baseline. Chemistry with no acute findings needing intervention. COVID negative. UA still pending Time: 09:35 Reevaluation #2: Abdominal CT showing stable superficial complex fluid collection in the right groin post right inguinal hernia repair measuring 1.7 x 3.8 x 3.4 cm. This has a small high attenuation component laterally that could represent hematoma. This is visualized on exam. No air seen to suggest abscess. Extraperitoneal fluid in the pelvis unchanged. Patient was evaluated by the surgical team very benign abdominal exam he has a little hematoma on the right but incision is clean. LOPEZ Keita thinks patient is constipated in: FO OS on imaging. She would like patient fed, if he is tolerating p.o. he can be discharged as he has prompt follow-up. Suggested Colace twice daily and MiraLax. Time: 10:50 Reevaluation #3: Patient + for opiates, oxycodone, benzos and marijuana. UA without infection. Patient feeling better. Patient will need a ride home as soon as he can find a ride home he will be discharged. Educated patient on diagnosis and treatment plan, answered all question, patient verbalizes understanding. At this time patient will be discharged home, advised to return with new or worsening symptoms. Educated on worrisome signs and symptoms and when to return. At this time I feel comfortable discharge home. Time: 12:03 Medications Administered Discontinued Medications Generic Name Dose Route Start Last Admin Trade Name Freq PRN Reason Stop Dose Admin Diazepam 2.5 mg 12/04/24 08:57 12/04/24 09:09 Diazepam 10 Mg/2 Ml Cartridge IVPUSH 12/04/24 08:58 2.5 mg STAT STA Administration Hydromorphone HCl 1 mg 12/04/24 10:29 12/04/24 11:36 Hydromorphone Hcl 1 Mg/Ml Syringe IVPUSH 12/04/24 10:30 1 mg ONCE ONE Administration Protocol Iohexol 100 ml 12/04/24 09:50 12/04/24 09:51 Iohexol 350 Mg/Ml 100 Ml Infus..Btl IV 12/04/24 09:51 85 ml ONCE ONE Administration Morphine Sulfate 4 mg 12/04/24 08:48 12/04/24 08:59 Morphine Sulfate 4 Mg/Ml Cartridge IVPUSH 12/04/24 08:49 4 mg ONCE ONE Administration Protocol Ondansetron HCl 4 mg 12/04/24 08:53 12/04/24 08:58 Ondansetron Hcl 4 Mg/2 Ml Vial IVPUSH 12/04/24 08:54 4 mg ONCE ONE Administration Medical Decision Making Medical Decision Making [facility] Narrative: 2055 24-year-old male presents with significant lower abdominal pain and nausea since 05:00. He is status post inguinal hernia repair on 11/22/2024. Physical exam patient appears extremely uncomfortable, rocking in the bed, crying, with significant tenderness to lower abdomen History and physical exam concerning for possible postoperative complication, issues with mesh. Other differentials include viral illness, cyclic vomiting although patient states he does not have a history of this and denies marijuana use. Will rule out metabolic derangements. Plan labs, imaging, urine Differential Diagnosis Differential Diagnoses: The differential diagnosis associated with the presentation includes ( History and physical exam concerning for possible postoperative complication, issues with mesh. Other differentials include viral illness, cyclic vomiting although patient states he does not have a history of this and denies marijuana use. Will rule out metabolic derangements.) Admission/Observation Consideration of admission/observation: Escalation of care including admission/observation considered Consult Healthcare Provider Management of the patient was discussed with: Emergency Department Director Lab Data [facility] Lab Attestation statement: I reviewed the patient's lab results. 12/04/24 09:13 12/04/24 09:13 Labs: Lab Results 12/04/24 12/04/24 12/04/24 Range/Units 09:13 09:24 11:39 WBC 10.5 (4.8-10.8) X10*3/uL RBC 4.41 L (4.60-5.80) X10*6/uL Hgb 13.5 L (14.0-18.0) g/dl Hct 38.1 L (42.0-52.0) % MCV 86.4 (80.0-98.0) fL MCH 30.6 (27.0-33.0) pg MCHC 35.4 (31.0-36.0) g/dl RDW 12.8 (11.0-16.0) % Plt Count 331 (160-400) X10*3/uL MPV 8.3 L (9.4-12.4) fL Immature Gran % (Auto) 0.4 (0.0-0.4) % Neut % (Auto) 80.1 H (45-73) % Lymph % (Auto) 13.1 L (20-40) % [place] % (Auto) 5.2 (2-11) % Eos % (Auto) 0.7 (0-4) % Baso % (Auto) 0.5 (0-2) % Lymph # (Auto) 1.4 (1.2-4.9) X10*3/uL [place] # (Auto) 0.6 (0.1-1.2) X10*3/uL Eos # (Auto) 0.1 (0.0-0.4) X10*3/uL Baso # (Auto) 0.1 (0.0-0.2) X10*3/uL Abs Immat Gran (auto) 0.04 H (0.00-0.03) X10*3/uL Absolute Neuts (auto) 8.4 H (2.0-8.3) x10*3/uL Absolute Nucleated RBC 0.000 (0.0-0.012) X10*3/uL Nucleated RBC % (auto) 0.0 (0.0-0.2) /100WBC PT 11.3 (10.9-12.4) SEC INR 1.0 (0.9-1.1) Sodium 141 (135-145) mmol/L Potassium 3.8 (3.3-5.1) mmol/L Chloride 109 H (96-108) mmol/L Carbon Dioxide 20 L (22-29) mmol/L Anion Gap 16 (12-20) BUN 16 (9-16) mg/dL Creatinine 0.89 (0.5-1.4) mg/dL Estim Creat Clear Calc 125.2 Estimated GFR > 60 Random Glucose 99 (60-115) mg/dL Calcium 10.0 (8.4-10.2) mg/dL Magnesium 1.9 (1.6-2.6) mg/dL Total Bilirubin 0.5 (0.0-1.0) mg/dL AST 21 (5-37) U/L ALT 11 (0-40) U/L Alkaline Phosphatase 61 (39-117) U/L Total Protein 7.2 (6.5-8.0) g/dL Albumin 4.7 (3.5-5.0) g/dL Urine Color Yellow Urine Appearance Clear Urine pH 7.0 (5.0-9.0) Ur Specific [place] >= 1.030 H (1.005-1.025) Urine Protein Negative (Neg-Trace) mg/dL Urine Glucose (UA) Negative (Negative) mg/dL Urine Ketones Negative (Negative) mg/dL Urine Blood Negative (Negative) Urine Nitrite Negative (Negative) Ur Leukocyte Esterase Negative (Negative) Urine Opiates Screen POSITIVE H (Not Detect) Ur Buprenorphine Scrn Not Detected (Not Detect) ng/mL Ur Oxycodone Screen Positive H (Not Detect) ng/mL Urine Methadone Screen Not Detected (Not Detect) ng/mL Urine Fentanyl Screen Not Detected (Not Detect) Ur Barbiturates Screen Not Detected (Not Detect) Ur Phencyclidine Scrn Not Detected (Not Detect) Ur Amphetamines Screen Not Detected (Not Detect) U Benzodiazepines Scrn POSITIVE H (Not Detect) Urine Cocaine Screen Not Detected (Not Detect) U Marijuana (THC) Screen POSITIVE H (Not Detect) COVID-19 (KERVIN) Negative (Negative) COVID-19 Clin Com See Note Independent Interpretation I performed an independent interpretation of an: CT Scan Radiology Impression Discussion of test interpretation with radiology: I have reviewed the radiologist's reading. External Record Review External record reviewed: Inpatient record, Office record, Outpatient record, Prior outpatient labs, Prior outpatient radiology, Primary care record and Outside ED record Chronic Conditions Patient?s care impacted by: Other (see hpi) Critical Care Time Critical Care Time Critical Care Time: Yes Total Critical Care Time: 35 Attestation: I attest to this time spent taking care of the patient, obtaining history, physical, reviewing labs, imaging, treatment of patients condition +/- specialist/hospitalist consult +/- procedure Discharge Plan Discharge Clinical Impression: S/P inguinal hernia repair, Constipation, Abdominal pain, Nausea & vomiting Patient Disposition: Home, Self-Care Instructions: Constipation (ED), Abdominal Pain (ED) Additional Instructions: Take your medications as prescribed. If you were prescribed antibiotics today, it is important that you take your medication to their entirety, do not skip any doses, do not finish them early. Follow-up with your primary care provider this week. Return to the emergency department with new or worsening symptoms. Such as fevers, chills, chest pain, shortness of breath, nausea, vomiting, dizziness, headache, vision changes, lethargy In case of emergency call 911 Zoan has been sent for nausea and vomiting. Your CT of abdomen showed CT/CT abdomen pelvis w IV con IMPRESSION: Stable superficial complex fluid collection in the right groin post right inguinal hernia repair. This measures 1.7 x 3.8 x 3.4 cm. This has a small high attenuation component laterally that could represent hematoma. No air is seen to suggest this represents an abscess. Small amount of extraperitoneal fluid in the pelvis unchanged. Prescriptions: New acetaminophen [Tylenol] 325 mg tablet 650 mg PO Q6H PRN (Reason: fever or pain) Qty: 30 0RF ondansetron HCl 4 mg tablet 4 mg PO Q8H PRN (Reason: nausea and vomiting) Qty: 14 0RF docusate sodium [Colace] 100 mg capsule 100 mg PO BID Qty: 30 0RF polyethylene glycol 3350 [Miralax] 17 gram/dose powder 17 g PO BID PRN (Reason: constipation) Qty: 238 0RF No Action docusate sodium [Colace] 100 mg capsule 100 mg PO BID PRN (Reason: constipation) Qty: 30 0RF oxycodone 5 mg tablet 5 mg PO Q6H PRN (Reason: pain) Qty: 10 0RF Rx Instructions: Partial Fill upon patient request. ibuprofen 600 mg tablet 600 mg PO Q6H PRN (Reason: pain) Qty: 30 0RF acetaminophen [Tylenol Extra Strength] 500 mg tablet 1,000 mg PO Q8H PRN (Reason: pain) Qty: 30 0RF oxycodone 5 mg tablet 5 mg PO Q4H PRN (Reason: pain) Qty: 24 0RF Rx Instructions: Partial Fill upon patient request. Referrals: Physician,Unknown J [Primary Care Provider, Medical] Stand Alone Forms: Work/School Release Print Language: [place]
[2024-12-04 08:55] VITALS: BP 129/92; PULSE 95; RESP 20; TEMP 36.7; O2SAT 96; BMI 20.9
[2024-12-04 08:59] VITALS: RESP 20
[2024-12-04] MEDS: diazePAM 10 MG/2 ML CARTRIDGE 2.5 MG IVPUSH (09:09)
[2024-12-04 09:19] LABS: MANUAL DIFF FLAG NO
[2024-12-04 09:21] LABS: Hematocrit 38.1 % (42.0-52.0); Hemoglobin 13.5 g/dl (14.0-18.0); Imm Gran Abs Auto 0.04 X10*3/uL (0.00-0.03); Imm Gran Pct Auto 0.4 % (0.0-0.4); Lymphocytes Absolute Auto 1.4 X10*3/uL (1.2-4.9); Mean Corpuscular HGB Conc 35.4 g/dl (31.0-36.0); Mean Corpuscular Hemoglobin 30.6 pg (27.0-33.0); Mean Corpuscular Volume 86.4 fL (80.0-98.0); NRBC Abs Auto 0.000 X10*3/uL (0.0-0.012); NRBC Pct Auto 0.0 /100WBC (0.0-0.2); Platelet Count 331 X10*3/uL (160-400); Red Blood Count 4.41 X10*6/uL (4.60-5.80); White Blood Count 10.5 X10*3/uL (4.8-10.8)
[2024-12-04 09:38] LABS: INTERNATIONAL NORM RATIO 1.0 (0.9-1.1); Prothrombin Time 11.3 SEC (10.9-12.4)
[2024-12-04 09:40] LABS: Alanine Aminotransferase 11 U/L (0-40); Albumin Level 4.7 g/dL (3.5-5.0); Alkaline Phosphatase 61 U/L (39-117); Anion Gap 16 (12-20); Aspartate Amino Transferase 21 U/L (5-37); Blood Urea Nitrogen 16 mg/dL (9-16); Calcium 10.0 mg/dL (8.4-10.2); Carbon Dioxide 20 mmol/L (22-29); Chloride 109 mmol/L (96-108); Creatinine Clr Calc Pharmacy 125.2; Estimated Glomerular Filt Rate > 60; Magnesium 1.9 mg/dL (1.6-2.6); Potassium 3.8 mmol/L (3.3-5.1); Sodium 141 mmol/L (135-145); Total Protein 7.2 g/dL (6.5-8.0)
[2024-12-04 09:44] LABS: COVID-19 Test Negative (Negative); IDNOW Serial# 6674DD1D
[2024-12-04] MEDS: iohexoL 350 MG/ML 100 ML INFUS..BTL IV (09:51)
[2024-12-04 10:43] VITALS: BP 121/63; PULSE 64; RESP 18; O2SAT 99
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
[2024-12-04 11:36] VITALS: RESP 22
[2024-12-04 11:48] LABS: Appearance Urine Clear; Glucose Urine UA Negative (Negative); PH 7.0 (5.0-9.0); Specific Gravity - Urine >= 1.030 (1.005-1.025)
[2024-12-04 11:57] LABS: Cannabinoid Screen Urine POSITIVE (Not Detect)
[2024-12-04 12:40] VITALS: BP 121/63; PULSE 64; RESP 22; TEMP 36.8; O2SAT 99
== END 2024-12-04 12:41 | disposition home or self-care (01) ==
PROVIDERS: Physician Assistant; Emergency Provider Emergency Medicine Emergency Medical Services
DX: K59.00 Constipation, unspecified (principal); R11.2 Nausea with vomiting, unspecified; Z98.890 Other specified postprocedural states; Z87.19 Personal history of other diseases of the digestive system; Z11.52 Encounter for screening for COVID-19; Z51.81 Encounter for therapeutic drug level monitoring
CPT/HCPCS: 74177; 80053; 80307; 81003; 83735; 85025; 85610; 87635; 96374; 96375; 99284; 99285; J1171; J2270; J2405; J3360; Q9967

== ENCOUNTER → 2024-12-04 08:47 | Outpatient (BNV) | payer OTHER, SELFPAY | PROVIDERS: Emergency Provider Emergency Medicine Emergency Medical Services; Visit Provider Radiology Diagnostic Radiology | DX: R10.30 Lower abdominal pain, unspecified (principal) | CPT/HCPCS: 74177 ==

== ENCOUNTER → 2024-12-04 09:08 | Outpatient (BNV) | payer OTHER, SELFPAY | PROVIDERS: Emergency Provider Emergency Medicine Emergency Medical Services; Visit Provider Physician Assistant Surgical | DX: K59.00 Constipation, unspecified (principal); Z98.890 Other specified postprocedural states; Z87.19 Personal history of other diseases of the digestive system | CPT/HCPCS: 99283 ==

== ENCOUNTER 2024-12-16 10:06 | Outpatient (AMB) | payer OTHER, SELFPAY ==
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
[2024-12-16 10:16] VITALS: BP 103/59; PULSE 78
== END 2024-12-16 10:25 | disposition home or self-care (01) ==
LOC: HO.HGS 10:06
DX: Z98.890 Other specified postprocedural states (principal); Z87.19 Personal history of other diseases of the digestive system
CPT/HCPCS: 99024